=== PATIENT | male | born 1945 | race Caucasian/White ===

== ENCOUNTER 2022-10-15 08:05 | Outpatient (CLI) | payer MEDICARE, BC, SELFPAY ==
[2022-10-15 09:35] LABS: Chloride* 110 mmol/L (96-114); Potassium* 4.1 mmol/L (3.6-5.1); Sodium* 140 mmol/L (135-149)
[2022-10-15 09:37] LABS: Bilirubin Total* 0.5 mg/dL (0.1-1.5); Carbon Dioxide* 24 mmol/L (20-32); Cholesterol* 149 mg/dL (90-199); Creatinine* 1.8 mg/dL (0.5-1.5); Estimated Glomerular Filt Rate 39 ml/min; Total Protein* 6.8 g/dL (6.0-8.3)
[2022-10-15 09:38] LABS: Alanine Aminotransferase* 18 U/L (4-50); Alkaline Phosphatase* 52 U/L (40-150); Aspartate Amino Transferase* 28 U/L (12-35); Blood Urea Nitrogen* 24 mg/dL (7-30); Calcium* 8.9 mg/dL (8.4-10.6); Glucose* 122 mg/dL (60-115); HDL Cholesterol* 45 mg/dL (>=40); LDL Cholesterol Calculated 76 mg/dL (<100); Triglycerides* 142 mg/dL (40-149)
== END 2022-10-15 08:06 | disposition home or self-care (01) ==
LOC: NFLDREF 08:05
PROVIDERS: PCP Family Medicine; Visit Provider Family Medicine
DX: Z00.00 Encounter for general adult medical examination without abnormal findings (principal); E78.5 Hyperlipidemia, unspecified; Z12.5 Encounter for screening for malignant neoplasm of prostate; I12.9 Hypertensive chronic kidney disease with stage 1 through stage 4 chronic kidney disease, or unspecified chronic kidney disease; N18.30 Chronic kidney disease, stage 3 unspecified; K21.9 Gastro-esophageal reflux disease without esophagitis; G47.33 Obstructive sleep apnea (adult) (pediatric); K58.9 Irritable bowel syndrome, unspecified; R01.1 Cardiac murmur, unspecified
CPT/HCPCS: 80053; 80061; 84153

== ENCOUNTER 2023-10-21 07:52 | Outpatient (CLI) | payer MEDICARE, BC, SELFPAY | END 2023-10-21 07:53 | disposition home or self-care (01) | LOC: NFLDREF 10-22 07:13 | PROVIDERS: PCP Family Medicine; Referring Provider Family Medicine; Visit Provider Family Medicine | DX: E78.5 Hyperlipidemia, unspecified (principal); Z12.5 Encounter for screening for malignant neoplasm of prostate; R73.03 Prediabetes | CPT/HCPCS: 80053; 80061; G0103 ==

== ENCOUNTER 2024-08-08 15:08 | Outpatient (CLI) | payer MEDICARE, BC, SELFPAY ==
--- OUTSIDE RECORDS SUMMARY | 2024-08-08 15:11 | XMS_ITS | Clinical Summary ---
Author Organization [facility] Address [address] [place] [address] Care Team Providers Care Material Assistant Name Role Phone Elsewhere, Pcp Primary Care Provider Unavailabl e Source Comments Patient records contain information from all sites at [facility]. For routine questions regarding patient records, call [phone] during business hours, M-F 8:00 AM - 5:00 PM Central Time. Record requests for emergency care only can be directed to [phone] at any time.[facility] Allergies No known active allergies Medications omeprazole (PriLOSEC) [address] capsule Take 1 capsule by mouth daily. 6 Active lisinopriL 20 mg tablet Take 1 tablet by mouth daily. 6 Active Cholestyramine Light 4 gram powder TAKE 4G BY MOUTH TWICE DAILY 4 Active chlorthalidone (Hygroton) 25 mg tablet Take 25 mg by mouth daily. Active aspirin 81 mg chewable tablet Chew 1 tablet (81 mg total) daily. 4 Active amoxicillin (AmoxiL) 500 mg capsule Take 4 capsules (2,000 mg total) by mouth as directed. Take 4 caps (2000 mg) 1 hour prior to dental procedure. 12 capsule 2 4 Active omeprazole (PriLOSEC) [address] capsule Take by mouth every morning. 2 024 Discontinued pravastatin (PravachoL) 20 mg tablet 4 024 Discontinued chlorthalidone (Hygroton) 25 mg tablet Take by mouth daily. 2 024 Discontinued cholestyramine (Questran) 4 gram powder Take 1 packet by mouth. 6 024 Discontinued cholestyramine (Questran) 4 gram powder Take by mouth 2 (two) times a day. 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 DEVICE REGISTRATION 08/03/2024 12:23 PM DERRICK BARGE OPERATOR Anesthesia Event Division of Cardiovascular Diseases in [address] [phone] Laura Castaneda APRN, INDUSTRIAL INSULATOR 08/03/2024 11:30 AM DERRICK BARGE OPERATOR - 08/03/2024 2:00 PM DERRICK BARGE OPERATOR Surgery Division of Cardiovascular Diseases in [address] [phone] Chano Powell M.D., M.S. PPM Implant - Dual Chamber 08/03/2024 8:00 AM DERRICK BARGE OPERATOR - 08/03/2024 11:46 AM DERRICK BARGE OPERATOR Surgery Division of Cardiovascular Diseases in [address] [phone] Nelson Jones M.D., Ph.D. CV TRANSCATHETER AORTIC VALVE REPLACEMENT 08/03/2024 5:48 AM DERRICK BARGE OPERATOR - 08/04/2024 12:16 PM DERRICK BARGE OPERATOR Hospital Encounter [facility], [facility], Sixth Floor [address] [place] [phone] Nelson Jones M.D., Ph.D. Prosthesis Aortic Valve (Primary Dx); Stenosis Aortic Valve Acquired Discharge Disposition: Home or Self Care 08/03/2024 Clinical Communication Department of Cardiovascular Medicine in [place], [place] [address] [place] [phone] Enrico Knight, LILIBETH, C.N.P., M.S.N. 08/01/2024 1:00 PM DERRICK BARGE OPERATOR Virtual Visit Department of Cardiovascular Medicine in [place], [place] [address] [place] [phone] Emely Dominguez, R.N. Hypertensive Chronic Kidney Disease With Stage 1 Through Stage 4 Chronic Kidney Disease, Or Unspecified Chronic Kidney Disease (Primary Dx); Stenosis Aortic Valve Acquired; Obstructive Sleep Apnea Adult 07/15/2024 4:30 PM DERRICK BARGE OPERATOR Comprehensive Visit Department of Cardiovascular Surgery in [place], [place] [address] [place] [phone] Rafael Shah M.D. Acquired Aortic Valve Disorder (Primary Dx) 07/15/2024 3:30 PM DERRICK BARGE OPERATOR Comprehensive Visit Department of Cardiovascular Medicine in [place], [place] [address] [place] [phone] Nelson Jones M.D., Ph.D. Stenosis Aortic Valve Acquired 07/15/2024 11:00 AM DERRICK BARGE OPERATOR Education Department of Patient Education in [place], [place] [address] [place] [phone] Danyell Morris M.B.B.SDimple, Ph.D. Stenosis Aortic Valve Acquired 07/14/2024 Clinical Communication Department of Cardiovascular Medicine in [place], [place] [address] [place] [phone] Danyell Morris M.B.B.S., Ph.D. Forms (Dental Clearance) 07/13/2024 1:00 PM DERRICK BARGE OPERATOR Comprehensive Visit Department of Cardiovascular Medicine in [place], [place] [address] [place] [phone] Danyell Morris M.B.B.S., Ph.D. Stenosis Aortic Valve Acquired (Primary Dx); Obstructive Sleep Apnea Adult; Chronic Kidney Disease; Hypertension Essential Primary; Obesity Body Mass Index 30-39.9 Adult; Gastroesophageal Reflux Disease Without Esophagitis 07/13/2024 11:07 AM DERRICK BARGE OPERATOR - 07/13/2024 11:59 PM DERRICK BARGE OPERATOR Hospital Encounter Department of Radiology, [facility] in [place], [place] [address] [place] [address] Danyell Morris M.B.B.S., Ph.D. Stenosis Aortic Valve Acquired Discharge Disposition: Home or Self Care 07/13/2024 10:41 AM DERRICK BARGE OPERATOR - 07/13/2024 11:06 AM DERRICK BARGE OPERATOR Hospital Encounter Department of Laboratory Medicine and Pathology, [facility] in [place], [place] [address] [place] [address] Danyell Morris M.B.B.S., Ph.D. Stenosis Aortic Valve Acquired Discharge Disposition: Home or Self Care 07/13/2024 9:41 AM DERRICK BARGE OPERATOR - 07/13/2024 10:40 AM DERRICK BARGE OPERATOR [facility] [place] [place] [address] [place] [address] Danyell Morris M.B.BZion, Ph.D. Stenosis Aortic Valve Acquired Discharge Disposition: Home or Self Care 05/30/2024 Clinical Communication Department of Cardiovascular Medicine in [place], [place] [address] [place] [address] Danyell Morris M.B.BDimpleSDimple, Ph.D. Pre-visit Testing Orders 05/13/2024 Clinical Communication Department of Cardiovascular Medicine in [place], [place] [address] [place] [address] Danyell Morris M.B.BZion, Ph.D. Surgical Questions from Last 3 Months Social History Tobacco Use Types Packs/Day Years Used Date Smoking Tobacco: Never Smokeless Tobacco: Never Tobacco Cessation:Counseling Given: Not Answered [facility] Utilities Answer Date Recorded In the past 12 months has th e Peel, gas, oil, or water company threatened to shut off services in your home? No 08/03/2024 Humiliation, Afraid, Rape, and Kick questionnair e Answer Date Recorded Within the last year, have y ou been afraid of your partner or ex-partner? No 08/03/2024 Within the last year, have y ou been humiliated or emotionally abused in other ways by your partner or ex-partner? No Within the last year, have y ou been kicked, hit, slapped, or otherwise physically hurt by your partner or ex-partner? No 08/03/2024 Within the last year, have y ou been raped or forced to have any kind of sexual activity by your partner or ex-partner? No 08/03/2024 Exercise Vital Sign Answer Date Recorde d On average, how many days pe r week do you engage in moderate to strenuous exercise (like a brisk walk)? Patient declined On average, how many minutes do you engage in exercise at this level? Patient declined 07/11/2024 Hunger Vital Sign Answer Date Recorded Within the past 12 months, y ou worried that your food would run out before you got the money to buy more. Never true 08/03/20 24 Within the past 12 months, t he food you bought just didn't last and you didn't have money to get more. Never true 08/03/2024 PRAPARE - Transportation Answer Date Re corded In the past 12 months, has l ack of transportation kept you from medical appointments or from getting medications? No 11/2023 In the past 12 months, has l ack of transportation kept you from meetings, work, or from getting things needed for daily living? No 08/03/2024 Nutrition Answer Date Recorded On average, how many serving s of fruits and vegetables do you eat per day (serving size is equal to 1 cup or approximately the size of a tennis ball)? 3-5 07/11/2024 Dental Answer Date Recorded Dental: Regular Dentist Yes 07/11/20 Employment Answer Date Recorded Employment status Retired 07/11/2024 Housing Stability Answer Date Recorded What is your living situation today? I have a [facility] place to live 08/03/2024 Sex and Gender Information Value Date Recorded Sex Assigned at Male 07/11/2024 10:53 AM DERRICK BARGE OPERATOR Legal Sex Male 9:21 AM DERRICK BARGE OPERATOR Gender Identity Male 07/11/2024 10:53 AM DERRICK BARGE OPERATOR Sexual Orientation Straight 07/11/2024 10 :53 AM DERRICK BARGE OPERATOR Last Filed Vital Signs Vital Sign Reading Time Taken Comments Blood Pressure 110/65 08/04/2024 11:15 AM DERRICK BARGE OPERATOR Pulse 72 08/04/2024 11:15 AM DERRICK BARGE OPERATOR Temperature 37.3 C (99.1 F) 08/04/2024 11:18 AM DERRICK BARGE OPERATOR Respiratory Rate 18 08/04/2024 11:15 AM DERRICK BARGE OPERATOR Oxygen Saturation 95% 08/04/2024 11:15 AM DERRICK BARGE OPERATOR Inhaled Oxygen Concentration - - Weight 93.9 kg (207 lb 0.2 oz) 08/04/2024 3:04 A M DERRICK BARGE OPERATOR Height 170.5 cm (5' 7.13) 08/03/2024 6:10 AM CS T Body Mass Index 32.3 08/03/2024 6:10 AM DERRICK BARGE OPERATOR Plan of Treatment Upcoming Encounters Date Type Department Care Team (Latest Contact Info) Description 09/20/2024 9:00 AM DERRICK BARGE OPERATOR Clinical Communication Virtual Review in [place], [place] [address] [place] [address] 09/21/2024 11:20 AM DERRICK BARGE OPERATOR Appointment Department of Laboratory Medicine and Pathology, [facility] in [place], [place] [address] [place] [phone] Enrico Knight APRN, C.N.P., M.S.N. [address] [place] [phone] 09/21/2024 11:40 AM DERRICK BARGE OPERATOR Ancillary Procedure Department of Cardiovascular Medicine in [place], [place] [address] [place] [phone] Enrico Knight APRN, C.N.P., M.S.N. [address] [place] [phone] 09/21/2024 12:15 PM DERRICK BARGE OPERATOR Appointment Department of Cardiovascular Diseases in [place], [place] [address] [place] [phone] Enrico Knight APRN, C.NArnaldo., M.S.N. [address] [place] [phone] Discharge Disposition: Home or Self Care 09/22/2024 9:30 AM DERRICK BARGE OPERATOR Office Visit Department of Cardiovascular Medicine in [place], [place] [address] [place] [phone] Edna Sandra APRN, C.NArnaldo., M.S.N. [address] [place] [phone] Scheduled Procedures Name Priority Associated Diagnoses Date/Ti me ENDOSCOPY SLEEP STATE Obstructive Sleep Apnea Adult Health Maintenance Due Date Last Done Comments Hepatitis C Screening 1945 Zoster Vaccines (2 of 3) 10/06/2013 08/11/2013 RSV vaccine - (32-36 weeks) or 60+ years (1 - 1-dose 75+ series) 2021 Depression Screening (Annual PHQ-2) 08/31/2023 COVID-19 Vaccine ( - season) 2024 Influenza Vaccine (#1) 2024 08/22/2014 Office Visit for Blood Pressure Check / Re-check 07/15/2025 07/15/2024 Creatinine Level (Kidney Function Test) 08/04/2025 08/04/2024, 07/13/2024, 07/13/2024 Potassium Level 08/04/2025 08/04/2024, 07/13/2024 Sodium Level 08/04/2025 08/04/2024, 07/13/2024 DTaP,Tdap,and Td Vaccines (2 - Td or Tdap) 08/29/2025 08/29/2015, 08/06/2005 Colonoscopy Discontinued 04/25/2008 Colorectal Cancer Screening Discontinued Pneumococcal vaccine (65+ years) Completed 10/08/2020, 04/16/2011 Abdominal Aortic Aneurysm (AAA) Screen Discontinued 07/13/2024 Fall Risk Screen (Annual) Completed 08/03/2024 CT Colonography Discontinued Cologuard Discontinued FIT Discontinued IPV Vaccines Aged Out No longer eligi ble based on patient's age to complete this topic Medical Devices Implanted Type Area Electrical Transmission Engineer Device Identifier Shelf Expiration Date Model / Serial / Lot Lead Ppm Ingevity+ Biplr 59 - [id number] - [id number] Implanted:Qty : 1 on 08/03/2024 by Chano Powell M.D., M.S. at [facility] Cardiac Lead [employer] 12/20/2025 [id number] / [id number] / Lead Ppm Ingevity+ Biplr 52 - [id number] - [id number] Implanted:Qty : 1 on 08/03/2024 by Chano Powell M.D., M.S. at [facility] Cardiac Lead [employer] 06/01/2026 [id number] / [id number] / Vlv Zohra S3 Ultra 26 - [id number] - [id number] Implanted:Qty : 1 on 08/03/2024 by Nelson Jones M.D., Ph.D. at [facility] Cardiac Valve Prosthesis N/A: Heart [employer] 04/27/2027 [id number] / [id number] / Description:AO Valve Envelope Md Conrad - [id number] Implanted:Qty : 1 on 08/03/2024 by Chano Powell M.D., M.S. at [facility] Mesh or Patch Med[employer]onic 05/22/2025 [id number] / / [id number] Ppm Accolade Dr Thang Banks - [id number] - [id number] Implanted:Qty : 1 on 08/03/2024 by Chano Powell M.D., M.S. at [facility] Pacemaker [employer] 06/20/2026 [id number] / [id number] / Procedures Procedure Name Priority Date/Time Associated Diagnosis Comments CBC WITHOUT DIFFERENTIAL, B Routine 08/04/2024 9:22 AM DERRICK BARGE OPERATOR BASIC METABOLIC PANEL, S/P Routine 08/04/2024 9:22 AM DERRICK BARGE OPERATOR DX CHEST AP OR PA AND LATERAL 2 VIEWS RAD - Routine (most inpatients and all outpatients) 08/04/2024 8:51 AM DERRICK BARGE OPERATOR CAR CARDIAC DEVICE INTERROGATION Routine 08/04/2024 8:26 AM DERRICK BARGE OPERATOR Procedure Note - Program AnalystMorgan M.D. - 08/04/2024 8:26 AM CSTThis note is in progress. IMPRESSION: Encounter Impression: Title: Normal In-Office: No Events * Normal Device Function: One day post implant * Alerts or events: None * Battery: SAGAR, * Sensing, impedance and thresholds reviewed and tested * Presenting Rhythm: A sensed V sensed at 61 bpm * Underlying Rhythm: Sinus Rhythm at 61 bpm * Heart Rate Histograms reviewed * Pacing and Detection Parameters were evaluated Additional Notes: Left Pectoral Incision is covered in Mepilex which isC/D/I with no hematoma palpable. Title: Device Reprogrammed Device reprogrammed, changes are listed below: *ATR Fallback mode changed from VDI to DDIR Plan: This patient underwent device interrogation. I agree that the deviceinterrogation was medically indicated to provide appropriate care andcontinue routine device interrogations as indicated. Encounter Summary: This report includes 1 transmission that was receivedon 2024-08-04. Battery, lead impedance, sensing amplitude and pacingthreshold data was reviewed. ECG Routine 08/04/2024 6:58 AM DERRICK BARGE OPERATOR ECG Routine 08/04/2024 5:13 AM DERRICK BARGE OPERATOR ACT, POCT, B Routine 08/03/2024 6:04 PM DERRICK BARGE OPERATOR HEART RHYTHM PROCEDURE Routine 08/03/2024 3:42 PM DERRICK BARGE OPERATOR HEART RHYTHM PROCEDURE Routine 08/03/2024 3:42 PM DERRICK BARGE OPERATOR ADULT OXYGEN THERAPY Routine 08/03/2024 1:22 PM DERRICK BARGE OPERATOR ADULT OXYGEN THERAPY Routine 08/03/2024 1:22 PM DERRICK BARGE OPERATOR ADULT OXYGEN THERAPY Routine 08/03/2024 1:22 PM DERRICK BARGE OPERATOR CAR CARDIAC DEVICE INTERROGATION Routine 08/03/2024 11:52 AM DERRICK BARGE OPERATOR ECG Semiurgent (Fast, mo st ED patients, some inpatients) 08/03/2024 10:54 AM DERRICK BARGE OPERATOR CARDIAC CATHETERIZATION Routine 08/03/2024 9:51 AM DERRICK BARGE OPERATOR Stenosis Aortic Valve Acquired CARDIAC CATHETERIZATION Routine 08/03/2024 9:51 AM DERRICK BARGE OPERATOR Stenosis Aortic Valve Acquired CARDIAC CATHETERIZATION Routine 08/03/2024 9:51 AM DERRICK BARGE OPERATOR Stenosis Aortic Valve Acquired CARDIAC CATHETERIZATION Routine 08/03/2024 9:51 AM DERRICK BARGE OPERATOR Stenosis Aortic Valve Acquired (TTE) 2D LIMITED WITH COLOR AND LIMITED DOPPLER Routine 08/03/2024 9:50 AM DERRICK BARGE OPERATOR ACT, POCT, B Routine 08/03/2024 9:20 AM DERRICK BARGE OPERATOR TRANSCATHETER AORTIC VALVE REPLACEMENT TRANS FEMORAL 08/03/2024 7:58 AM DERRICK BARGE OPERATOR Stenosis Aortic Valve Acquired CT CHEST ANGIOGRAM WITH IV CONTRAST RAD - Routine (most inpatients and all outpatients) 07/13/2024 1:36 PM DERRICK BARGE OPERATOR Stenosis Aortic Valve Acquired CT CARDIAC ANGIO STRUCTURAL HEART W ANNABELLE ARTERIES W IV CONTRAST RAD - Routine (most inpatients and all outpatients) 07/13/2024 1:36 PM DERRICK BARGE OPERATOR Stenosis Aortic Valve Acquired CT ABDOMEN PELVIS ANGIOGRAM WITH IV CONTRAST RAD - Routine (most inpatients and all outpatients) 07/13/2024 1:36 PM DERRICK BARGE OPERATOR Stenosis Aortic Valve Acquired ECG Routine 07/13/2024 1:11 PM DERRICK BARGE OPERATOR Stenosis Aortic Valve Acquired CREATININE, POCT, B Routine 07/13/2024 12:01 PM DERRICK BARGE OPERATOR CREATININE, POCT, B Routine 07/13/2024 12:01 PM DERRICK BARGE OPERATOR NT-PRO B-TYPE NATRIURETIC PEPTIDE (BNP), S Routine 07/13/2024 10:51 AM DERRICK BARGE OPERATOR Stenosis Aortic Valve Acquired CBC WITH DIFFERENTIAL, B Routine 07/13/2024 10:51 AM DERRICK BARGE OPERATOR Stenosis Aortic Valve Acquired COMPREHENSIVE METABOLIC PANEL, S/P Routine 07/13/2024 10:51 AM DERRICK BARGE OPERATOR Stenosis Aortic Valve Acquired TYPE AND SCREEN Routine 07/13/2024 10:51 AM DERRICK BARGE OPERATOR Stenosis Aortic Valve Acquired PROTHROMBIN TIME (PT), P Routine 07/13/2024 10:51 AM DERRICK BARGE OPERATOR Stenosis Aortic Valve Acquired LIPID PANEL, S Routine 07/13/2024 10:46 AM DERRICK BARGE OPERATOR HEMOGLOBIN A1C, B Routine 07/13/2024 10:46 AM DERRICK BARGE OPERATOR Stenosis Aortic Valve Acquired Obstructive Sleep Apnea Adult Chronic Kidney Disease Hypertension Essential Primary Obesity Body Mass Index 30-39.9 Adult THYROID FUNCTION CASCADE, S Routine 07/13/2024 10:46 AM DERRICK BARGE OPERATOR Stenosis Aortic Valve Acquired Obstructive Sleep Apnea Adult Chronic Kidney Disease Hypertension Essential Primary Obesity Body Mass Index 30-39.9 Adult DX CHEST AP OR PA AND LATERAL 2 VIEWS RAD - Routine (most inpatients and all outpatients) 07/13/2024 9:48 AM DERRICK BARGE OPERATOR Stenosis Aortic Valve Acquired from Last 3 Months Results * (ABNORMAL) CBC without Differential (08/04/2024 9:22 AM DERRICK BARGE OPERATOR) Hemoglobin 11.9(L) 13.2 - 16.6 g/dL 08/04/2024 10:14 AM DERRICK BARGE OPERATOR DTL Hematocrit 35.2(L) 38.3 - 48.6 % 08/04/2024 10:14 AM DERRICK BARGE OPERATOR DTL Erythrocytes 3.66(L) 4.35 - 5.65 x10(12)/L 08/04/2024 10:14 AM DERRICK BARGE OPERATOR DTL MCV 96.2 78.2 - 97.9 fL 08/04/2024 10:14 AM DERRICK BARGE OPERATOR DTL RBC Distrib Width 12.0 11.8 - 14.5 % 08/04/2024 10:14 AM DERRICK BARGE OPERATOR DTL Platelet Count 139 135 - 317 x10(9)/L 08/04/2024 10:14 AM DERRICK BARGE OPERATOR DTL Leukocytes 8.9 3.4 - 9.6 x10(9)/L 08/04/2024 10:14 AM DERRICK BARGE OPERATOR DTL Blood (Blood, Venous) 08/04/2024 9:22 AM DERRICK BARGE OPERATOR 08/04/2024 9:40 AM DERRICK BARGE OPERATOR Enrico Knight APRN C.N.P., M.S.N. LAB BLOOD A DD-ON Final Result [facility] [address] [place] [address] * (ABNORMAL) Basic Metabolic Panel (08/04/2024 9:22 AM DERRICK BARGE OPERATOR) Pathologist [facility] Potassium, S 4.3 3.6 - 5.2 mmol/L 08/04/2024 10:57 AM DERRICK BARGE OPERATOR DTL Sodium, S 134(L) 135 - 145 mmol/L 08/04/2024 10:57 AM DERRICK BARGE OPERATOR DTL Chloride, S 104 98 - 107 mmol/L 08/04/2024 10:57 AM DERRICK BARGE OPERATOR DTL Bicarbonate, S 20(L) 22 - 29 mmol/L 08/04/2024 10:57 AM DERRICK BARGE OPERATOR DTL Anion Gap 10 7 - 15 08/04/2024 10:57 AM DERRICK BARGE OPERATOR DTL BUN (Blood Urea Nitrogen), S 27(H) 8 - 24 mg/dL 08/04/2024 10:57 AM DERRICK BARGE OPERATOR DTL Creatinine 1.92(H) 0.74 - 1.35 mg/dL 08/04/2024 10:57 AM DERRICK BARGE OPERATOR DTL Estimated GFR (eGFR) 35(L) >=60 mL/min/BSA 08/04/2024 10:57 AM DERRICK BARGE OPERATOR DTL Comment: Estimated GFR calculated using the 2020 CKD_EPI creatinine equation. Calcium, Total, S 8.8 8.8 - 10.2 mg/dL 08/04/2024 10:57 AM DERRICK BARGE OPERATOR DTL Glucose, S 104 70 - 140 mg/dL 08/04/2024 10:57 AM DERRICK BARGE OPERATOR DTL Blood (Blood, Venous) 08/04/2024 9:22 AM DERRICK BARGE OPERATOR 08/04/2024 9:54 AM DERRICK BARGE OPERATOR Enrico Knight APRN, C.N.P., M.S.N. LAB BLOOD A DD-ON Final Result [facility] [address] [place] [address], [facility] DTL [facility] [address] [place] [address] * DX Chest AP or PA and Lateral 2 Views (08/04/2024 8:51 AM DERRICK BARGE OPERATOR) Only the most recent of2 resultswithin the time period is included. Anatomical Region Laterality Modality Chest, Thoracic RST LOS, Tho racic ARZ LOS, Thoracic FLA LOS N/A Digital Radiography Impressions 08/04/2024 8:56 AM DERRICK BARGE OPERATOR Since 07/13/2024, new left subclavian pacemaker with leads projecting over the RA and RV. Interval TAVR. Cardiac silhouette size upper limits of normal. Aortic calcifications. Surgical clips RUQ. Chest otherwise negative. Narrative 08/04/2024 8:56 AM DERRICK BARGE OPERATOR EXAM: DX CHEST AP OR PA AND LATERAL 2 VIEWS Procedure Note Harry Eason M.D. - 08/04/2024 EXAM: DX CHEST AP OR PA AND LATERAL 2 VIEWS IMPRESSION: Since 07/13/2024, new left subclavian pacemaker with leads projecting overthe RA and RV. Interval TAVR. Cardiac silhouette size upper limits ofnormal. Aortic calcifications. Surgical clips RUQ. Chest otherwisenegative. Enrico Knight APRN, C.N.P., M.S.N. IMG DIAGNOS TIC IMAGING PROCEDURES Final Result * ECG 12 Lead (08/04/2024 6:58 AM DERRICK BARGE OPERATOR) Only the most recent of4 resultswithin the time period is included. Ventricular Rate ECG/Min 60 BPM MUSE DC Interval 230 ms MUSE QRSD Interval 144 ms MUSE QT Interval 456 ms MUSE QTC Interval 456 ms MUSE P [place] 36 degrees MUSE R [place] -82 degrees MUSE T Wave [place] 15 degrees MUSE 08/04/2024 6:58 AM DERRICK BARGE OPERATOR 08/04/2024 7:07 AM DERRICK BARGE OPERATOR Impressions MUSE - 08/04/2024 7:07 AM DERRICK BARGE OPERATOR Atrial-paced rhythm Right bundle branch block with secondary ST-T abnormalities Left anterior fascicular block Bifascicular block Nonspecific T wave abnormality When compared with ECG of 04-Aug-2024 05:13, Sinus rhythm is no longer present Reviewed by SKYE Agee Narrative Procedure Note Morales Huerta Jr., M.D. - 08/04/2024 IMPRESSION: Atrial-paced rhythm Right bundle branch block with secondary ST-T abnormalities Left anterior fascicular block Bifascicular block Nonspecific T wave abnormality When compared with ECG of 04-Aug-2024 05:13, Sinus rhythm is no longer present Reviewed by SKYE Agee Enrico Knight APRN, C.N.P., M.S.N. ECG ORDERAB LES Final Result MUSE NA * ACT (Activated Clotting Time), POCT (08/03/2024 6:04 PM DERRICK BARGE OPERATOR) Only the most recent of2 resultswithin the time period is included. Activated Clotting Time, POCT 125 84 - 139 sec 08/03/2024 6:45 PM DERRICK BARGE OPERATOR PCSM Blood (Blood, Venous) 08/03/2024 6:04 PM DERRICK BARGE OPERATOR 08/03/2024 6:07 PM DERRICK BARGE OPERATOR Cornelia Mario APRNNDimpleP., M.S.N. LAB POCT OR DERABLES - DEVICE Final Result POC RST [facility] [address] [place] [address], [facility] PCSM [facility] POC [address] [place] [address] * PPM IMPLANT - DUAL CHAMBER, LEFT BUNDLE PACING (08/03/2024 3:42 PM DERRICK BARGE OPERATOR) Anatomical Region Laterality Modality X-Ray Angiograph y 08/03/2024 1:18 PM DERRICK BARGE OPERATOR Narrative 08/03/2024 4:22 PM DERRICK BARGE OPERATOR For the complete report, see the Order-Level Documents. PROCEDURE TYPES 1. PPM IMPLANT - DUAL CHAMBER 2. 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 Moderate sedation was administered by our anesthesia colleagues. Sterile prepping and draping were performed. Periprocedural antibiotics were given. The skin was incised with a blade. Cautery was performed towards the pectoral fascia and a pocket was created. Vascular access was obtained using the micropuncture needle and ultrasound guidance. A second vascular access was similarly obtained. The Centerpoint 2 sheath was advanced into the RVOT over a Glidewire. We attempted positioning the sheath tip in the left bundle region but the shape was not appropriate. Hence, it was exchanged for the Centerpoint 3 sheath which offered better stability. The Ingevity was then advanced through the sheath and positioned approximately 1cm distal to the tricuspid annulus along the inferior septum. The helix was extended with the helix locking tool. Several turns were applied to the lead body. Starting unipolar tip impedance was around 700. With additional turns, a terminal R wave emerged on lead V1, with an LVAT of around 80ms. The unipolar tip impedance decreased to around 600 at this juncture. Contrast injection showed that the lead was within the septum. There was good myocardial capture with ring unipolar pacing. We therefore elected to keep this location. The sheath was slit with the [employer] adjustable slitter. The peel-away sheath was removed and the lead was secured at its entry to the vein with suture ties. Next, a second pacing lead was directed towards the RAA using a J-shaped stylet. Lead parameters and pacing thresholds were adequate at this location; no diaphragmatic or intercostal stimulation was appreciated at high output pacing. The lead was secured at its entry to the vein with suture ties. The pocket was irrigated with saline and reexamined for bleeding; additional cautery was performed as needed to maintain hemostasis. The generator was brought onto the field and connected to the implanted leads. The generator was then placed in the pocket with the leads wrapped behind it. An affixing suture was placed along with an antibiotic pouch. Final device/lead testing was performed and parameters were stable. The deep layer was closed with interrupted 2-0 Vicryl suture. The subcutaneous layer was closed with a running 2-0 Vicryl suture. The skin was closed with a running 4-0 Stratafix suture. RADIATION DOSE DATA Procedure cumulative skin dose (mGy): 109.73 Procedure cumulative dose area product (Gy-cm2): 10.63 Fluoro Time (Min): 14.89 CONTRAST DOSE DATA iohexoL 300 mg iodine/mL solution (Omnipaque): 2mL For the complete report, see the Order-Level Documents. Procedure Note Chano Powell M.D., M.S. - 08/04/2024 For the complete report, see the Order-Level Documents. PROCEDURE TYPES 1. PPM IMPLANT - DUAL CHAMBER 2. 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 Moderatesedation was administered by our anesthesia colleagues. Sterile preppingand draping were performed. Periprocedural antibiotics were given. Theskin was incised with a blade. Cautery was performed towards the pectoralfascia and a pocket was created. Vascular access was obtained using themicropuncture needle and ultrasound guidance. A second vascular accesswas similarly obtained. The Centerpoint 2 sheath was advanced into the RVOT over a Glidewire. Weattempted positioning the sheath tip in the left bundle region but theshape was not appropriate. Hence, it was exchanged for the Centerpoint 3sheath which offered better stability. The Ingevity was then advancedthrough the sheath and positioned approximately 1cm distal to thetricuspid annulus along the inferior septum. The helix was extended withthe helix locking tool. Several turns were applied to the lead body.Starting unipolar tip impedance was around 700. With additional turns, aterminal R wave emerged on lead V1, with an LVAT of around 80ms. Theunipolar tip impedance decreased to around 600 at this juncture. Contrastinjection showed that the lead was within the septum. There was goodmyocardial capture with ring unipolar pacing. We therefore elected tokeep this location. The sheath was slit with the [employer] adjustableslitter. The peel-away sheath was removed and the lead was secured at itsentry to the vein with suture ties. Next, a second pacing lead wasdirected towards the RAA using a J-shaped stylet. Lead parameters andpacing thresholds were adequate at this location; no diaphragmatic orintercostal stimulation was appreciated at high output pacing. The leadwas secured at its entry to the vein with suture ties. The pocket was irrigated with saline and reexamined for bleeding;additional cautery was performed as needed to maintain hemostasis. Thegenerator was brought onto the field and connected to the implanted leads.The generator was then placed in the pocket with the leads wrapped behindit. An affixing suture was placed along with an antibiotic pouch. Finaldevice/lead testing was performed and parameters were stable. The deeplayer was closed with interrupted 2-0 Vicryl suture. The subcutaneouslayer was closed with a running 2-0 Vicryl suture. The skin was closedwith a running 4-0 Stratafix suture. RADIATION DOSE DATA Procedure cumulative skin dose (mGy): 109.73 Procedure cumulative dose area product (Gy-cm2): 10.63 Fluoro Time (Min): 14.89 CONTRAST DOSE DATA iohexoL 300 mg iodine/mL solution (Omnipaque): 2mL For the complete report, see the Order-Level Documents. us Chano Powell M.D., M.S. CV ELECTROPHYSIOLOGY P ROCS Edited Result - Final * CARDIOVASCULAR IMPLANTABLE ELECTRONIC DEVICE - NO CHARGE (08/03/2024 11:52 AM DERRICK BARGE OPERATOR) Date Time Interrogation Session [facility] Implantable Pulse Generator Electrical Transmission Engineer [facility] Implantable Pulse Generator Type Pacemaker [facility] Implantable Pulse Generator Model L331 [facility] Implantable Pulse Generator Serial Number [id number] [facility] Implantable Pulse Generator Implant Date [id number] [facility] Lead Channel Sensing Intrinsic Amplitude 2.600 [facility] Lead Channel Setting Sensing Sensitivity 0.75 [facility] Lead Channel Impedance Value 570 [facility] Lead Channel Pacing Threshold Amplitude 0.700 [facility] Lead Channel Pacing Threshold Pulse Width 0.4 [facility] Lead Channel Measurements Date and Time 20240803 [facility] Lead Channel Setting Pacing Amplitude 3.500 [facility] Lead Channel Setting Pacing Pulse Width 0.4 [facility] Lead Channel Sensing Intrinsic Amplitude 19.500 [facility] Lead Channel Setting Sensing Sensitivity 2.50 [facility] Lead Channel Impedance Value 872 [facility] Lead Channel Pacing Threshold Amplitude 0.400 [facility] Lead Channel Pacing Threshold Pulse Width 0.4 [facility] Lead Channel Measurements Date and Time 20240803 [facility] Lead Channel Setting Pacing Amplitude 3.500 [facility] Lead Channel Setting Pacing Pulse Width 0.4 [employer] [facility] Jarad Setting Mode (NBG Code) AAIR-VVI [facility] Jarad Setting Lower Rate Limit 60 [facility] Jarad Setting AT Mode Switch Rate 170 [facility] Jarad Setting Maximum Tracking Rate 120 [facility] Jarad Setting Maximum Sensor Rate 120 [facility] Ajrad Setting PAV Delay 210 [facility] Jarad Setting TRACIE Delay 200 [facility] Zone Setting Type Category AT/AF [facility] Murj Rate 1 170 [facility] Zone Setting Status Monitor [facility] Murj Zone ID 1 [facility] Zone Setting Type Category VT [facility] Murj Rate 1 160 [facility] Zone Setting Status Monitor [facility] Murj Zone ID 2 [facility] Implantable Lead Electrical Transmission Engineer [employer] [facility] Implantable Lead Model 7842-59 [facility] Implantable Lead Location Right Ventricle [facility] Implantable Lead Connection Status Connected [facility] Implantable Lead Serial Number [id number] [facility] Implantable Lead Implant Date 20240731 [facility] Implantable Lead Special Function Lead length: 59.00 cm [facility] Implantable Lead Electrical Transmission Engineer [employer] [facility] Implantable Lead Model 7841-52 [facility] Implantable Lead Location Right Atrium [facility]plantable Lead Connection Status Connected [facility] Implantable Lead Serial Number [id number] [facility] Implantable Lead Implant Date 20240731 [facility] Implantable Lead Special Function Lead length: 52.00 cm [facility] Anatomical Region Laterality Modality Other 08/03/2024 3:56 PM DERRICK BARGE OPERATOR Impressions 08/03/2024 3:56 PM DERRICK BARGE OPERATOR Encounter Impression: Title: New Device Implanted * New Device Implant Date: 08/03/2024 * Device implanted by Dr. Powell at [facility] * Programmed parameters were reviewed * Underlying Rhythm: A/V block- 1st; frequent PAC's 60's * Temporary Pacemaker Used: Yes- epicardial placed in TAVR * Temporary Pacemaker Site: Femoral * Dressing: Mepilex * Same Day Dismissal: No * Summary: All device function appears normal * Interrogation performed by: Char Rivas Plan: This patient underwent device interrogation. I agree that the device interrogation was medically indicated to provide appropriate care and continue routine device interrogations as indicated. Encounter Summary: This report includes 1 transmission that was received on 2024-08-03. Battery, lead impedance, sensing amplitude and pacing threshold data was reviewed. Narrative Procedure Note Akers, Abiodun T, M.D. - 08/08/2024 IMPRESSION: Encounter Impression: Title: New Device Implanted * New Device Implant Date: 08/03/2024 * Device implanted by Dr. Powell at [facility] * Programmed parameters were reviewed * Underlying Rhythm: A/V block- 1st; frequent PAC's 60's * Temporary Pacemaker Used: Yes- epicardial placed in TAVR * Temporary Pacemaker Site: Femoral * Dressing: Mepilex * Same Day Dismissal: No * Summary: All device function appears normal * Interrogation performed by: Char Rivas Plan: This patient underwent device interrogation. I agree that the deviceinterrogation was medically indicated to provide appropriate care andcontinue routine device interrogations as indicated. Encounter Summary: This report includes 1 transmission that was receivedon 2024-08-03. Battery, lead impedance, sensing amplitude and pacingthreshold data was reviewed. Katie Mike APRN, C.N.P., D.N.P. CV IMPLANT ABLE CARDIAC DEVICE Final Result * TRANSCATHETER AORTIC VALVE REPLACEMENT, AORTIC ROOT AORTOGRAM, TEMPORARY PACEMAKER INSERTION, LEFT HEART CATHETERIZATION (08/03/2024 9:51 AM DERRICK BARGE OPERATOR) Anatomical Region Laterality Modality X-Ray Angiograph y 08/03/2024 8:59 AM DERRICK BARGE OPERATOR Narrative 08/04/2024 10:06 AM DERRICK BARGE OPERATOR For the complete report, see the Order-Level Documents. PROCEDURE TYPES 1. TRANSCATHETER AORTIC VALVE REPLACEMENT 2. AORTIC ROOT AORTOGRAM 3. TEMPORARY PACEMAKER INSERTION 4. HEART CATHETERIZATION - LEFT FINAL DIAGNOSIS 1. Aortic valve stenosis 2. Successful percutaneous aortic valve replacement PRE-PROCEDURE DIAGNOSIS 1. Stenosis Aortic Valve Acquired INTERVENTIONAL NOTE Preoperative diagnosis: Severe, symptomatic aortic valve stenosis, acute on chronic decompensated heart failiure Procedure: Successful transfemoral transcatheter aortic valve replacement with a 26 mm Stewart Zohra 3 Ultra valve +2cc additional volume via the right common femoral artery After a discussion of the risks, benefits, alternatives, and need for a team based approach, the patient was brought for elective transcatheter aortic valve replacement using a 26 Zohra S3 valve (+2 cc volume). Using a combination of ultrasound and fluoroscopic guidance, access was obtained in the right radial artery, right common femoral artery, and left femoral vein, and 6 [place] sheaths were inserted. The right femoral artery access was pre-closed using two suture-based vascular closure devices and upsized to an 8 [place] sheath. Therapeutic heparin was administered. A temporary pacemaker was advanced into the right ventricle from the right femoral vein and tested with appropriate capture. A J tipped glidewire was used to navigate the radial artery, and a 5Fr pigtail was advanced from the radial artery into the aortic root. Angiography was performed to confirm cusp alignment. From the right common femoral artery, an AL1 catheter was used to introduce a Safari wire into the thoracic aorta, we then exchanged the 8 [place] sheath for the 14 [place] expandable Stewart sheath. An AL1 was advanced with a J wire to the level of the aortic valve and a straight wire was used to cross into the left ventricle. A 6 [place] pigtail catheter was used to measure an LVEDP. We then advanced the Safari wire into the LV.? The Zohra valve was introduced and configured in the descending thoracic aorta. The valve was subsequently positioned across the aortic valve and successfully deployed under rapid ventricular pacing. Echocardiography demonstrated no significant perivalvular regurgitation. Aortic root angiogram showed excellent position with no valvular or perivalvular regurgitation. Patient did not require pacing but remains at high risk given baseline bifascicular block. Temporary pacing balloon was left in place and the left femoral venous sheath was secured with a suture. The right femoral artery vascular closure devices were deployed with good hemostasis. Right radial artery angiogram was taken through the sheath, demonstrating a recurrent radial artery. The radial sheath was removed with placement of a TR band. The patient tolerated the procedure well with no intraprocedural complications. RADIATION DOSE DATA Procedure cumulative skin dose (mGy): 412.32 Procedure cumulative dose area product (Gy-cm2): 48.90 Fluoro Time (Min): 6.95 CONTRAST DOSE DATA iohexoL 350 mg iodine/mL solution (Omnipaque): 60mL For the complete report, see the Order-Level Documents. Procedure Note Nelson Jones M.D., Ph.D. - 08/04/2024 For the complete report, see the Order-Level Documents. PROCEDURE TYPES 1. TRANSCATHETER AORTIC VALVE REPLACEMENT 2. AORTIC ROOT AORTOGRAM 3. TEMPORARY PACEMAKER INSERTION 4. HEART CATHETERIZATION - LEFT FINAL DIAGNOSIS 1. Aortic valve stenosis 2. Successful percutaneous aortic valve replacement PRE-PROCEDURE DIAGNOSIS 1. Stenosis Aortic Valve Acquired INTERVENTIONAL NOTE Preoperative diagnosis: Severe, symptomatic aortic valve stenosis, acuteon chronic decompensated heart failiure Procedure: Successful transfemoral transcatheter aortic valve replacementwith a 26 mm Stewart Zohra 3 Ultra valve +2cc additional volume via theright common femoral artery After a discussion of the risks, benefits, alternatives, and need for ateam based approach, the patient was brought for elective transcatheteraortic valve replacement using a 26 Zohra S3 valve (+2 cc volume). Usinga combination of ultrasound and fluoroscopic guidance, access was obtainedin the right radial artery, right common femoral artery, and left femoralvein, and 6 [place] sheaths were inserted. The right femoral artery accesswas pre-closed using two suture-based vascular closure devices and upsizedto an 8 [place] sheath. Therapeutic heparin was administered. A temporary pacemaker was advancedinto the right ventricle from the right femoral vein and tested withappropriate capture. A J tipped glidewire was used to navigate the radialartery, and a 5Fr pigtail was advanced from the radial artery into theaortic root. Angiography was performed to confirm cusp alignment. From theright common femoral artery, an AL1 catheter was used to introduce aSafari wire into the thoracic aorta, we then exchanged the 8 [place] sheathfor the 14 [place] expandable Stewart sheath. An AL1 was advanced with a Jwire to the level of the aortic valve and a straight wire was used tocross into the left ventricle. A 6 [place] pigtail catheter was used tomeasure an LVEDP. We then advanced the Safari wire into the LV.? TheSapien valve was introduced and configured in the descending thoracicaorta. The valve was subsequently positioned across the aortic valve andsuccessfully deployed under rapid ventricular pacing. Echocardiography demonstrated no significant perivalvular regurgitation.Aortic root angiogram showed excellent position with no valvular orperivalvular regurgitation. Patient did not require pacing but remains athigh risk given baseline bifascicular block. Temporary pacing balloon wasleft in place and the left femoral venous sheath was secured with asuture. The right femoral artery vascular closure devices were deployedwith good hemostasis. [facility] a recurrent radial artery. The radial sheath wasremoved with placement of a TR band. The patient tolerated the procedurewell with no intraprocedural complications. RADIATION DOSE DATA Procedure cumulative skin dose (mGy): 412.32 Procedure cumulative dose area product (Gy-cm2): 48.90 Fluoro Time (Min): 6.95 CONTRAST DOSE DATA iohexoL 350 mg iodine/mL solution (Omnipaque): 60mL For the complete report, see the Order-Level Documents. Danyell Walsh, Ph.D. CV CARDIAC CATH PROCEDURES Final Result * (TTE) 2D LIMITED WITH COLOR AND LIMITED DOPPLER (08/03/2024 9:50 AM DERRICK BARGE OPERATOR) Ejection Fraction 55 MC CV EIMS Left ventricular stroke volume index 54 MC CV EIMS Cardiac Output 6.87 MC CV EIMS Cardiac Index 3.35 MC CV EIMS AV mean gradient 73 MC CV EIMS Aortic valve area 0.75 MC CV EIMS Aortic Valve Area Index 0.37 MC CV EIMS Aortic Valve Dimensionless Index 0.17 MC CV EIMS Aortic Valve Systolic Peak Velocity 5.6 MC CV EIMS Anatomical Region Laterality Modality Other 08/03/2024 7:33 AM DERRICK BARGE OPERATOR Impressions 08/03/2024 10:00 AM DERRICK BARGE OPERATOR Echo performed in the Cardiac Cath Laboratory. Clinical TAVR. TTE imaging performed during TAVR deployment. PRE-PROCEDURE:Estimated left ventricular ejection fraction 55%. Severe calcific aortic valve stenosis. Aortic valve systolic mean Doppler gradient 73 mmHg. Aortic valve area by Doppler 0.75 cm2. Mild aortic valve regurgitation. Left ventricular outflow tract systolic diameter: 2.4 cm. No pericardial effusion. PROCEDURE:Status post 26 mm Stewart Zohra 3 Ultra transcatheter aortic valve bioprosthesis implanted via a transfemoral approach. POST-DEPLOYMENTNormal aortic prosthesis. Aortic valve prosthesis systolic mean gradient post-procedure 13 mmHg. Effective orifice area post-procedure 2.42 cm2. No aortic valve prosthetic regurgitation. No aortic valve periprosthetic regurgitation. No pericardial effusion post-procedure. The remaining findings are unchanged from the pre-procedural images. For the complete report, see the Order-Level Documents. Narrative 08/03/2024 10:00 AM DERRICK BARGE OPERATOR For the complete report, see the Order-Level Documents. Hemodynamics Heart Rate: 55 BPM Blood Pressure: 144 / 64 mmHg ECG: Sinus rhythm Final Impressions 1. TTE imaging performed during TAVR deployment. 2. PRE-PROCEDURE: 3. Severe calcific aortic valve stenosis with mild aortic regurgitation. Aortic valve area by Doppler 0.75 cm2. 4. Estimated left ventricular ejection fraction 55%. 5. No pericardial effusion. 6. PROCEDURE: 7. Status post 26 mm Stewart Zohra 3 Ultra transcatheter aortic valve bioprosthesis implanted via a transfemoral approach. 8. POST-DEPLOYMENT 9. Normal aortic prosthesis. 10. Aortic valve prosthesis systolic mean gradient post-procedure 13 mmHg. Effective orifice area post-procedure 2.42 cm2. 11. No aortic prosthetic or periprosthetic regurgitation visualized. 12. No pericardial effusion post-procedure. Procedure Note Hayden Hurd M.D. - 08/03/2024 For the complete report, see the Order-Level Documents. Hemodynamics Heart Rate: 55 BPM Blood Pressure: 144 / 64 mmHg ECG: Sinus rhythm Final Impressions 1. TTE imaging performed during TAVR deployment. 2. PRE-PROCEDURE: 3. Severe calcific aortic valve stenosis with mild aortic regurgitation.Aortic valve area by Doppler 0.75 cm2. 4. Estimated left ventricular ejection fraction 55%. 5. No pericardial effusion. 6. PROCEDURE: 7. Status post 26 mm Stewart Zohra 3 Ultra transcatheter aortic valvebioprosthesis implanted via a transfemoral approach. 8. POST-DEPLOYMENT 9. Normal aortic prosthesis. 10. Aortic valve prosthesis systolic mean gradient post-procedure 13 mmHg.Effective orifice area post-procedure 2.42 cm2. 11. No aortic prosthetic or periprosthetic regurgitation visualized. 12. No pericardial effusion post-procedure. Findings Echo performed in the Cardiac Cath Laboratory. Clinical TAVR. TTE imagingperformed during TAVR deployment. PRE-PROCEDURE:Estimated left ventricular ejection fraction 55%. Severecalcific aortic valve stenosis. Aortic valve systolic mean Dopplergradient 73 mmHg. Aortic valve area by Doppler 0.75 cm2. Mild aortic valveregurgitation. Left ventricular outflow tract systolic diameter: 2.4 cm.No pericardial effusion. PROCEDURE:Status post 26 mm Stewart Zohra 3 Ultra transcatheter aorticvalve bioprosthesis implanted via a transfemoral approach. POST-DEPLOYMENTNormal aortic prosthesis. Aortic valve prosthesis systolicmean gradient post-procedure 13 mmHg. Effective orifice areapost-procedure 2.42 cm2. No aortic valve prosthetic regurgitation. Noaortic valve periprosthetic regurgitation. No pericardial effusionpost-procedure. The remaining findings are unchanged from thepre-procedural images. For the complete report, see the Order-Level Documents. us Nelson Jones M.D., Ph.D. CV ECHO PROCEDURES Mini l Result * CT Cardiac Angiogram Structural Heart with Coronary Arteries with IV Contrast (07/13/2024 1:36 PM DERRICK BARGE OPERATOR) Anatomical Region Laterality Modality Cardiac, Cardiovascular RST LOS, Thoracic ARZ LOS, Cardiovascular FLA LOS N/A Computed Tomography, Compute d Tomography Impressions 07/13/2024 3:16 PM DERRICK BARGE OPERATOR 1. Tricuspid aortic valve with calcific aortic stenosis. Please see TAVR procedure planning measurements in the Findings section. 2. Overall Coronary CT angiography image quality was adequate. Extensive calcified plaque causes moderate stenoses in distal left circumflex and first and second obtuse marginal branches. Proximal obstructive disease (as defined in the body of the report for pre-TAVR evaluation): Absent. CAD-RADS 3/P3. This examination was performed in conjunction with a CT of the Abdomen and Pelvis, which will be reported separately. Because nitroglycerin could not be administered, this study was not sent for coronary FFRct analysis Narrative 07/13/2024 3:16 PM DERRICK BARGE OPERATOR EXAM: CT CARDIAC ANGIO STRUCTURAL HEART W ANNABELLE ARTERIES W IV CONTRAST, CT CHEST ANGIOGRAM WITH IV CONTRAST ECG-gated CT angiogram of the chest and heart, including independent workstation 3D reformations, performed per the TAVR procedure planning protocol, with CT angiography of the abdomen and pelvis. COMPARISON: None CARDIAC FINDINGS: AORTIC VALVE: Morphology: Tricuspid aortic valve. Leaflet thickness: Severely increased cusp thickness. Leaflet mobility: Severe restriction of leaflet motion. Leaflet calcification: Present. Involves all valve cusps. Calcium score: 5439. LVOT Calcification: No calcifications in the left ventricular outflow tract. Other findings: None AORTIC VALVE/ANNULUS MEASUREMENTS Aortic Valve Annulus (cardiac phase 15% R-R interval): * Diameter = 28.2 mm x 23.8 mm * Area = 5.37 cm2 * Average diameter = 26.2 mm * Perimeter = 83.8 mm Distance from Aortic Valve Annulus to: * Left main coronary artery origin = 15.2 mm * Right coronary artery origin = 15.6 mm * Sinotubular junction = 25.1 mm * Brachiocephalic artery origin = 116 mm Left Ventricular Outflow Tract 4 mm below the Aortic Valve Annulus (cardiac phase 15% R-R interval): * Diameter = 28.4 mm x 25.1 mm * Area = 5.65 cm2 * Average diameter = 26.8 mm * Perimeter = 85.3 mm Aortic Annulus Orthogonal Plane Angles: * Optimized Aortic Valve Plane N, R, L = 8 degrees MONGOLIAN ; 5 degrees FIELD LABORER * Craniocaudal tilt at 0 degrees MONGOLIAN = 7 degrees CAU * Craniocaudal tilt at 10 degrees MONGOLIAN = 7 degrees FIELD LABORER * Craniocaudal tilt at 10 degrees POLLACK = 19 degrees CAU * R, L Cusp Overlap View = 11 degrees POLLACK ; 20 degrees CAU CORONARY ARTERIES: Coronary artery calcium score = 1025.50. Overall image quality for coronary evaluation: adequate Origins: Conventional Dominance: Right Left Main Coronary: Calcified plaque at ostium causes minimal stenosis. Left Anterior Descending: Patent proximal LAD. Calcified plaques cause up to mild stenosis in mid LAD. Bridging segment of mid LAD. Patent first diagonal. Left Circumflex: Calcified plaques cause moderate stenoses in first and second obtuse marginal branches and distal left circumflex. Right Coronary: Scattered calcified plaques cause mild stenoses in proximal, mid and distal RCA. Patent PDA and visualized proximal posterolateral branch OTHER CARDIAC FINDINGS: Enlarged left ventricle with mildly reduced systolic function (visual estimate). No regional wall motion abnormalities. No resting first pass perfusion defect. Mild asymmetric wall thickening of basal septum, measures up to 14 mm. No LV outflow tract obstruction or RITA. Normal right ventricular chamber size and systolic function. Left atrial enlargement. Normal-sized right atrium. Left atrial appendage is well opacified. No intracardiac thrombus in left heart. Thickened mitral valve leaflets. Mild mitral annular calcification. Pericardium: Normal. VASCULAR FINDINGS: Thoracic Aorta: Thoracic aorta is patent and normal caliber. Scattered calcified and noncalcified plaque throughout the thoracic aorta. Left aortic arch with conventional 3 vessel branching. Mixed density plaque causes mild stenosis of left subclavian artery. Calcified plaque causes minimal ostial stenosis of right subclavian artery. Otherwise, visualized aortic arch branch vessels are patent. No porcelain aorta. * Sinotubular Junction Diameter = 32.9 mm Central pulmonary arteries are patent. Main pulmonary artery is mildly dilated to 32 mm. Patent pulmonary veins drain into left atrium. ADDITIONAL FINDINGS: 4 mm triangular nodule along left major fissure, likely a lymph node. Minimal linear scar or atelectasis in right upper lobe. CAD-RADS CATEGORIES: (based on most severe single lesion) 0: 0%, No stenosis 1: 1-24%, Minimal stenosis 2: 25-49%, Mild stenosis 3: 50-69%, Moderate stenosis 4: 70-99%, Severe stenosis 5: 100%, Occluded Modifiers: N: Non-diagnostic segment(s) S: Stent G: Graft V: Vulnerable plaque Proximal Obstructive Coronary Disease for Pre-TAVR Defined as >=50% stenosis in: * Left Main * LAD to 2nd Diagonal * If Right Dominant: * RCA to junction free wall / inferior wall * LCx to 1st OM OR largest OM * If Left Dominant: * LCX to junction of vessel entering inferior aspect of left AV groove * RCA disease not considered * If Co-Dominant: * RCA to junction free wall / inferior wall * LCX to junction of vessel entering inferior aspect of left AV groove Procedure Note Miguel Lopez M.D., Ph.D. - 07/13/2024 EXAM: CT CARDIAC ANGIO STRUCTURAL HEART W ANNABELLE ARTERIES W IV CONTRAST, CTCHEST ANGIOGRAM WITH IV CONTRAST ECG-gated CT angiogram of the chest and heart, including independentworkstation 3D reformations, performed per the TAVR procedure planningprotocol, with CT angiography of the abdomen and pelvis. COMPARISON: None CARDIAC FINDINGS: AORTIC VALVE: Morphology: Tricuspid aortic valve. Leaflet thickness: Severely increased cusp thickness. Leaflet mobility: Severe restriction of leaflet motion. Leaflet calcification: Present. Involves all valve cusps. Calcium score: 5439. LVOT Calcification: No calcifications in the left ventricular outflowtract. Other findings: None AORTIC VALVE/ANNULUS MEASUREMENTS Aortic Valve Annulus (cardiac phase 15% R-R interval): * Diameter = 28.2 mm x 23.8 mm * Area = 5.37 cm2 * Average diameter = 26.2 mm * Perimeter = 83.8 mm Distance from Aortic Valve Annulus to: * Left main coronary artery origin = 15.2 mm * Right coronary artery origin = 15.6 mm * Sinotubular junction = 25.1 mm * Brachiocephalic artery origin = 116 mm Left Ventricular Outflow Tract 4 mm below the Aortic Valve Annulus(cardiac phase 15% R-R interval): * Diameter = 28.4 mm x 25.1 mm * Area = 5.65 cm2 * Average diameter = 26.8 mm * Perimeter = 85.3 mm Aortic Annulus Orthogonal Plane Angles: * Optimized Aortic Valve Plane N, R, L = 8 degrees MONGOLIAN ; 5 degrees FIELD LABORER * Craniocaudal tilt at 0 degrees MONGOLIAN = 7 degrees CAU * Craniocaudal tilt at 10 degrees MONGOLIAN = 7 degrees FIELD LABORER * Craniocaudal tilt at 10 degrees POLLACK = 19 degrees CAU * R, L Cusp Overlap View = 11 degrees POLLACK ; 20 degrees CAU CORONARY ARTERIES: Coronary artery calcium score = 1025.50. Overall image quality for coronary evaluation: adequate Origins: Conventional Dominance: Right Left Main Coronary: Calcified plaque at ostium causes minimal stenosis. Left Anterior Descending: Patent proximal LAD. Calcified plaques cause upto mild stenosis in mid LAD. Bridging segment of mid LAD. Patent firstdiagonal. Left Circumflex: Calcified plaques cause moderate stenoses infirst and second obtuse marginal branches and distal left circumflex. Right Coronary: Scattered calcified plaques cause mild stenoses inproximal, mid and distal RCA. Patent PDA and visualized proximalposterolateral branch OTHER CARDIAC FINDINGS: Enlarged left ventricle with mildly reduced systolic function (visualestimate). No regional wall motion abnormalities. No resting first passperfusion defect. Mild asymmetric wall thickening of basal septum,measures up to 14 mm. No LV outflow tract obstruction or RITA. Normal right ventricular chamber size and systolic function. Left atrial enlargement. Normal-sized right atrium. Left atrial appendage is well opacified. No intracardiac thrombus in leftheart. Thickened mitral valve leaflets. Mild mitral annular calcification. Pericardium: Normal. VASCULAR FINDINGS: Thoracic Aorta: Thoracic aorta is patent and normal caliber. Scatteredcalcified and noncalcified plaque throughout the thoracic aorta. Leftaortic arch with conventional 3 vessel branching. Mixed density plaquecauses mild stenosis of left subclavian artery. Calcified plaque causes minimal ostial stenosis of rightsubclavian artery. Otherwise, visualized aortic arch branch vessels arepatent. No porcelain aorta. * Sinotubular Junction Diameter = 32.9 mm Central pulmonary arteries are patent. Main pulmonary artery is mildlydilated to 32 mm. Patent pulmonary veins drain into left atrium. ADDITIONAL FINDINGS: 4 mm triangular nodule along left major fissure, likely a lymph node. Minimal linear scar or atelectasis in right upper lobe. CAD-RADS CATEGORIES: (based on most severe single lesion) 0: 0%, No stenosis 1: 1-24%, Minimal stenosis 2: 25-49%, Mild stenosis 3: 50-69%, Moderate stenosis 4: 70-99%, Severe stenosis 5: 100%, Occluded Modifiers: N: Non-diagnostic segment(s) S: Stent G: Graft V:Vulnerable plaque Proximal Obstructive Coronary Disease for Pre-TAVR Defined as >=50%stenosis in: * Left Main * LAD to 2nd Diagonal * If Right Dominant: * RCA to junction free wall / inferior wall * LCx to 1st OM OR largest OM * If Left Dominant: * LCX to junction of vessel entering inferior aspect of left AV groove * RCA disease not considered * If Co-Dominant: * RCA to junction free wall / inferior wall * LCX to junction of vessel entering inferior aspect of left AV groove IMPRESSION: 1. Tricuspid aortic valve with calcific aortic stenosis. Please see TAVRprocedure planning measurements in the Findings section. 2. Overall Coronary CT angiography image quality was adequate. Extensivecalcified plaque causes moderate stenoses in distal left circumflex andfirst and second obtuse marginal branches. Proximal obstructive disease(as defined in the body of the report for pre-TAVR evaluation): Absent. CAD-RADS 3/P3. This examination was performed in conjunction with a CT of the Abdomen andPelvis, which will be reported separately. Because nitroglycerin could not be administered, this study was not sentfor coronary FFRct analysis us Danyell BarSDimple, Ph.D. G CT PROCEDUR ES Final Result * CT Abdomen Pelvis Angiogram with IV Contrast (07/13/2024 1:36 PM DERRICK BARGE OPERATOR) Anatomical Region Laterality Modality Abdomen, Pelvis, Cardiovascu lar RST LOS, Abdominal ARZ LOS, Vascular Interventional ARZ LOS, Abdominal FLA LOS, Vascular Interventional FLA LOS, Procedural, Vascular Interventional NWWI LOS N/A Computed Tomography, Compute d Tomography 07/13/2024 12:5 5 PM DERRICK BARGE OPERATOR Impressions 07/13/2024 2:16 PM DERRICK BARGE OPERATOR 1. Moderate peripheral arterial disease. No flow-limiting lesions. Noncalcified nodular plaques protrude into lumen of distal infrarenal aorta and right common iliac artery. Please see verified arterial measurements in QREADS. This examination was performed in conjunction with a CT of the Chest, which will be reported separately. Narrative 07/13/2024 2:16 PM DERRICK BARGE OPERATOR REVISED REPORT: EXAM: CT ABDOMEN PELVIS ANGIOGRAM WITH IV CONTRAST CTA of the abdomen and pelvis with intravenous contrast, including independent workstation 3D reformations, performed as part of a pre-TAVR protocol. COMPARISON: None VASCULAR FINDINGS: ABDOMINAL AORTA: Moderate calcified and noncalcified atherosclerotic plaque, including noncalcified nodular and protruding plaque along posterior wall of distal infrarenal aorta. No significant aortic stenosis. No abdominal aortic aneurysm. ILIOFEMORAL ARTERIES: Right common iliac artery: Mild mixed density plaque, includes a nodular and mildly protruding noncalcified plaque. No significant stenosis. Normal caliber. Right external iliac artery: No plaque. No significant stenosis. Normal caliber. Right internal iliac artery: Minimal plaque. No significant stenosis. Normal caliber. Right common femoral artery: Minimal plaque. No significant stenosis. Normal caliber. Proximal right deep and superficial femoral arteries are patent. Left common iliac artery: Mild mixed density plaque. No significant stenosis. Normal caliber. Left external iliac artery: No plaque. No significant stenosis. Normal caliber. Left internal iliac artery: Mild calcified and noncalcified plaque causes up to mild stenosis. Normal caliber. Left common femoral artery: Minimal plaque. No significant stenosis. Normal caliber. Proximal left deep and superficial femoral arteries are patent. VISCERAL ARTERIES: Renal Arteries: Single and patent bilaterally Celiac artery: Patent Superior mesenteric artery: Patent ostial and proximal segments. Mixed density plaque causes mild stenosis in mid SMA. Inferior mesenteric artery: Patent ADDITIONAL FINDINGS: Moderate hiatal hernia. Cholecystectomy. No bile duct dilatation. Bilateral renal cysts. Nonspecific bilateral inguinal and external iliac lymph nodes, largest measures 13 mm short axis (right inguinal). Degenerative changes in the spine. Slight anterior wedging of T10 and T11. Procedure Note Miguel Lopez M.D., Ph.D. - 07/14/2024 REVISED REPORT: EXAM: CT ABDOMEN PELVIS ANGIOGRAM WITH IV CONTRAST CTA of the abdomen and pelvis with intravenous contrast, includingindependent workstation 3D reformations, performed as part of a pre-TAVRprotocol. COMPARISON: None VASCULAR FINDINGS: ABDOMINAL AORTA: Moderate calcified and noncalcified atheroscleroticplaque, including noncalcified nodular and protruding plaque alongposterior wall of distal infrarenal aorta. No significant aortic stenosis.No abdominal aortic aneurysm. ILIOFEMORAL ARTERIES: Right common iliac artery: Mild mixed density plaque, includes a nodularand mildly protruding noncalcified plaque. No significant stenosis. Normalcaliber. Right external iliac artery: No plaque. No significant stenosis. Normalcaliber. Right internal iliac artery: Minimal plaque. No significant stenosis.Normal caliber. Right common femoral artery: Minimal plaque. No significant stenosis.Normal caliber. Proximal right deep and superficial femoral arteries arepatent. Left common iliac artery: Mild mixed density plaque. No significantstenosis. Normal caliber. Left external iliac artery: No plaque. No significant stenosis. Normalcaliber. Left internal iliac artery: Mild calcified and noncalcified plaque causesup to mild stenosis. Normal caliber. Left common femoral artery: Minimal plaque. No significant stenosis.Normal caliber. Proximal left deep and superficial femoral arteries arepatent. VISCERAL ARTERIES: Renal Arteries: Single and patent bilaterally Celiac artery: Patent Superior mesenteric artery: Patent ostial and proximal segments. Mixeddensity plaque causes mild stenosis in mid SMA. Inferior mesenteric artery: Patent ADDITIONAL FINDINGS: Moderate hiatal hernia. Cholecystectomy. No bile duct dilatation. Bilateral renal cysts. Nonspecific bilateral inguinal and external iliac lymph nodes, largestmeasures 13 mm short axis (right inguinal). Degenerative changes in the spine. Slight anterior wedging of T10 andT11. IMPRESSION: 1. Moderate peripheral arterial disease. No flow-limiting lesions.Noncalcified nodular plaques protrude into lumen of distal infrarenalaorta and right common iliac artery. Please see verified arterialmeasurements in QREADS. This examination was performed in conjunction with a CT of the Chest,which will be reported separately. us Danyell Walsh, Ph.D. [facility] [place] CT PROCEDUR ES Edited Result - Final * CT Chest Angiogram with IV Contrast (07/13/2024 1:36 PM DERRICK BARGE OPERATOR) Anatomical Region Laterality Modality Chest, Cardiovascular RST LO S, Thoracic ARZ LOS, Thoracic FLA LOS, Vascular Interventional ARZ LOS, Procedural, Vascular Interventional NWWI LOS N/A Computed Tomography, Computed Tomography Impressions 07/13/2024 3:16 PM DERRICK BARGE OPERATOR 1. Tricuspid aortic valve with calcific aortic stenosis. Please see TAVR procedure planning measurements in the Findings section. 2. Overall Coronary CT angiography image quality was adequate. Extensive calcified plaque causes moderate stenoses in distal left circumflex and first and second obtuse marginal branches. Proximal obstructive disease (as defined in the body of the report for pre-TAVR evaluation): Absent. CAD-RADS 3/P3. This examination was performed in conjunction with a CT of the Abdomen and Pelvis, which will be reported separately. Because nitroglycerin could not be administered, this study was not sent for coronary FFRct analysis Narrative 07/13/2024 3:16 PM DERRICK BARGE OPERATOR EXAM: CT CARDIAC ANGIO STRUCTURAL HEART W ANNABELLE ARTERIES W IV CONTRAST, CT CHEST ANGIOGRAM WITH IV CONTRAST ECG-gated CT angiogram of the chest and heart, including independent workstation 3D reformations, performed per the TAVR procedure planning protocol, with CT angiography of the abdomen and pelvis. COMPARISON: None CARDIAC FINDINGS: AORTIC VALVE: Morphology: Tricuspid aortic valve. Leaflet thickness: Severely increased cusp thickness. Leaflet mobility: Severe restriction of leaflet motion. Leaflet calcification: Present. Involves all valve cusps. Calcium score: 5439. LVOT Calcification: No calcifications in the left ventricular outflow tract. Other findings: None AORTIC VALVE/ANNULUS MEASUREMENTS Aortic Valve Annulus (cardiac phase 15% R-R interval): * Diameter = 28.2 mm x 23.8 mm * Area = 5.37 cm2 * Average diameter = 26.2 mm * Perimeter = 83.8 mm Distance from Aortic Valve Annulus to: * Left main coronary artery origin = 15.2 mm * Right coronary artery origin = 15.6 mm * Sinotubular junction = 25.1 mm * Brachiocephalic artery origin = 116 mm Left Ventricular Outflow Tract 4 mm below the Aortic Valve Annulus (cardiac phase 15% R-R interval): * Diameter = 28.4 mm x 25.1 mm * Area = 5.65 cm2 * Average diameter = 26.8 mm * Perimeter = 85.3 mm Aortic Annulus Orthogonal Plane Angles: * Optimized Aortic Valve Plane N, R, L = 8 degrees MONGOLIAN ; 5 degrees FIELD LABORER * Craniocaudal tilt at 0 degrees MONGOLIAN = 7 degrees CAU * Craniocaudal tilt at 10 degrees MONGOLIAN = 7 degrees FIELD LABORER * Craniocaudal tilt at 10 degrees POLLACK = 19 degrees CAU * R, L Cusp Overlap View = 11 degrees POLLACK ; 20 degrees CAU CORONARY ARTERIES: Coronary artery calcium score = 1025.50. Overall image quality for coronary evaluation: adequate Origins: Conventional Dominance: Right Left Main Coronary: Calcified plaque at ostium causes minimal stenosis. Left Anterior Descending: Patent proximal LAD. Calcified plaques cause up to mild stenosis in mid LAD. Bridging segment of mid LAD. Patent first diagonal. Left Circumflex: Calcified plaques cause moderate stenoses in first and second obtuse marginal branches and distal left circumflex. Right Coronary: Scattered calcified plaques cause mild stenoses in proximal, mid and distal RCA. Patent PDA and visualized proximal posterolateral branch OTHER CARDIAC FINDINGS: Enlarged left ventricle with mildly reduced systolic function (visual estimate). No regional wall motion abnormalities. No resting first pass perfusion defect. Mild asymmetric wall thickening of basal septum, measures up to 14 mm. No LV outflow tract obstruction or RITA. Normal right ventricular chamber size and systolic function. Left atrial enlargement. Normal-sized right atrium. Left atrial appendage is well opacified. No intracardiac thrombus in left heart. Thickened mitral valve leaflets. Mild mitral annular calcification. Pericardium: Normal. VASCULAR FINDINGS: Thoracic Aorta: Thoracic aorta is patent and normal caliber. Scattered calcified and noncalcified plaque throughout the thoracic aorta. Left aortic arch with conventional 3 vessel branching. Mixed density plaque causes mild stenosis of left subclavian artery. Calcified plaque causes minimal ostial stenosis of right subclavian artery. Otherwise, visualized aortic arch branch vessels are patent. No porcelain aorta. * Sinotubular Junction Diameter = 32.9 mm Central pulmonary arteries are patent. Main pulmonary artery is mildly dilated to 32 mm. Patent pulmonary veins drain into left atrium. ADDITIONAL FINDINGS: 4 mm triangular nodule along left major fissure, likely a lymph node. Minimal linear scar or atelectasis in right upper lobe. CAD-RADS CATEGORIES: (based on most severe single lesion) 0: 0%, No stenosis 1: 1-24%, Minimal stenosis 2: 25-49%, Mild stenosis 3: 50-69%, Moderate stenosis 4: 70-99%, Severe stenosis 5: 100%, Occluded Modifiers: N: Non-diagnostic segment(s) S: Stent G: Graft V: Vulnerable plaque Proximal Obstructive Coronary Disease for Pre-TAVR Defined as >=50% stenosis in: * Left Main * LAD to 2nd Diagonal * If Right Dominant: * RCA to junction free wall / inferior wall * LCx to 1st OM OR largest OM * If Left Dominant: * LCX to junction of vessel entering inferior aspect of left AV groove * RCA disease not considered * If Co-Dominant: * RCA to junction free wall / inferior wall * LCX to junction of vessel entering inferior aspect of left AV groove Procedure Note Miguel Lopez M.D., Ph.D. - 07/13/2024 EXAM: CT CARDIAC ANGIO STRUCTURAL HEART W ANNABELLE ARTERIES W IV CONTRAST, CTCHEST ANGIOGRAM WITH IV CONTRAST ECG-gated CT angiogram of the chest and heart, including independentworkstation 3D reformations, performed per the TAVR procedure planningprotocol, with CT angiography of the abdomen and pelvis. COMPARISON: None CARDIAC FINDINGS: AORTIC VALVE: Morphology: Tricuspid aortic valve. Leaflet thickness: Severely increased cusp thickness. Leaflet mobility: Severe restriction of leaflet motion. Leaflet calcification: Present. Involves all valve cusps. Calcium score: 5439. LVOT Calcification: No calcifications in the left ventricular outflowtract. Other findings: None AORTIC VALVE/ANNULUS MEASUREMENTS Aortic Valve Annulus (cardiac phase 15% R-R interval): * Diameter = 28.2 mm x 23.8 mm * Area = 5.37 cm2 * Average diameter = 26.2 mm * Perimeter = 83.8 mm Distance from Aortic Valve Annulus to: * Left main coronary artery origin = 15.2 mm * Right coronary artery origin = 15.6 mm * Sinotubular junction = 25.1 mm * Brachiocephalic artery origin = 116 mm Left Ventricular Outflow Tract 4 mm below the Aortic Valve Annulus(cardiac phase 15% R-R interval): * Diameter = 28.4 mm x 25.1 mm * Area = 5.65 cm2 * Average diameter = 26.8 mm * Perimeter = 85.3 mm Aortic Annulus Orthogonal Plane Angles: * Optimized Aortic Valve Plane N, R, L = 8 degrees MONGOLIAN ; 5 degrees FIELD LABORER * Craniocaudal tilt at 0 degrees MONGOLIAN = 7 degrees CAU * Craniocaudal tilt at 10 degrees MONGOLIAN = 7 degrees FIELD LABORER * Craniocaudal tilt at 10 degrees POLLACK = 19 degrees CAU * R, L Cusp Overlap View = 11 degrees POLLACK ; 20 degrees CAU CORONARY ARTERIES: Coronary artery calcium score = 1025.50. Overall image quality for coronary evaluation: adequate Origins: Conventional Dominance: Right Left Main Coronary: Calcified plaque at ostium causes minimal stenosis. Left Anterior Descending: Patent proximal LAD. Calcified plaques cause upto mild stenosis in mid LAD. Bridging segment of mid LAD. Patent firstdiagonal. Left Circumflex: Calcified plaques cause moderate stenoses infirst and second obtuse marginal branches and distal left circumflex. Right Coronary: Scattered calcified plaques cause mild stenoses inproximal, mid and distal RCA. Patent PDA and visualized proximalposterolateral branch OTHER CARDIAC FINDINGS: Enlarged left ventricle with mildly reduced systolic function (visualestimate). No regional wall motion abnormalities. No resting first passperfusion defect. Mild asymmetric wall thickening of basal septum,measures up to 14 mm. No LV outflow tract obstruction or RITA. Normal right ventricular chamber size and systolic function. Left atrial enlargement. Normal-sized right atrium. Left atrial appendage is well opacified. No intracardiac thrombus in leftheart. Thickened mitral valve leaflets. Mild mitral annular calcification. Pericardium: Normal. VASCULAR FINDINGS: Thoracic Aorta: Thoracic aorta is patent and normal caliber. Scatteredcalcified and noncalcified plaque throughout the thoracic aorta. Leftaortic arch with conventional 3 vessel branching. Mixed density plaquecauses mild stenosis of left subclavian artery. Calcified plaque causes minimal ostial stenosis of rightsubclavian artery. Otherwise, visualized aortic arch branch vessels arepatent. No porcelain aorta. * Sinotubular Junction Diameter = 32.9 mm Central pulmonary arteries are patent. Main pulmonary artery is mildlydilated to 32 mm. Patent pulmonary veins drain into left atrium. ADDITIONAL FINDINGS: 4 mm triangular nodule along left major fissure, likely a lymph node. Minimal linear scar or atelectasis in right upper lobe. CAD-RADS CATEGORIES: (based on most severe single lesion) 0: 0%, No stenosis 1: 1-24%, Minimal stenosis 2: 25-49%, Mild stenosis 3: 50-69%, Moderate stenosis 4: 70-99%, Severe stenosis 5: 100%, Occluded Modifiers: N: Non-diagnostic segment(s) S: Stent G: Graft V:Vulnerable plaque Proximal Obstructive Coronary Disease for Pre-TAVR Defined as >=50%stenosis in: * Left Main * LAD to 2nd Diagonal * If Right Dominant: * RCA to junction free wall / inferior wall * LCx to 1st OM OR largest OM * If Left Dominant: * LCX to junction of vessel entering inferior aspect of left AV groove * RCA disease not considered * If Co-Dominant: * RCA to junction free wall / inferior wall * LCX to junction of vessel entering inferior aspect of left AV groove IMPRESSION: 1. Tricuspid aortic valve with calcific aortic stenosis. Please see TAVRprocedure planning measurements in the Findings section. 2. Overall Coronary CT angiography image quality was adequate. Extensivecalcified plaque causes moderate stenoses in distal left circumflex andfirst and second obtuse marginal branches. Proximal obstructive disease(as defined in the body of the report for pre-TAVR evaluation): Absent. CAD-RADS 3/P3. This examination was performed in conjunction with a CT of the Abdomen andPelvis, which will be reported separately. Because nitroglycerin could not be administered, this study was not sentfor coronary FFRct analysis Danyell Walsh, Ph.D. IMG CT PROCEDUR ES Final Result * (ABNORMAL) Creatinine, POCT (07/13/2024 12:01 PM DERRICK BARGE OPERATOR) Only the most recent of2 resultswithin the time period is included. Estimated GFR (eGFR), POCT 32(L) >=60 mL/min/BSA 07/13/2024 12:06 PM DERRICK BARGE OPERATOR PCMO Comment: Estimated GFR calculated using the 2020 CKD_EPI creatinine equation. Blood 07/13/2024 12:0 1 PM DERRICK BARGE OPERATOR 07/13/2024 12:05 PM DERRICK BARGE OPERATOR us Unknown Provider LAB POCT ORDERABLES - DEVICE Fi nal Result [facility]OC [facility] [address] [place], [place] [address] PCMO [facility] [address] [place] [address] * (ABNORMAL) NT-Pro B-Type Natriuretic Peptide (BNP) (07/13/2024 10:51 AM DERRICK BARGE OPERATOR) NT-Pro BNP 1121(H) <=540 pg/mL 07/13/2024 12:22 PM DERRICK BARGE OPERATOR DTL Comment: NT-proBNP values less than 300 pg/mL have a 99% negative predictive value for excluding acute congestive heart failure. A cutoff of 1200 pg/mL for patients with an eGFR<60 yields a diagnostic sensitivity and specificity of 89% and 72% for acute congestive heart failure. A diagnostic NT-proBNP cutoff of 1800 pg/mL has been suggested in adults over 75 years of age in the absence of renal failure. Blood (Blood, Venous) 07/13/2024 10:51 AM DERRICK BARGE OPERATOR 07/13/2024 11:29 AM DERRICK BARGE OPERATOR Danyell GuilloryB.S., Ph.D. LAB BLOOD ADD-O N Final Result [facility] [address] [place] [address], [facility] DTL [facility] [address] [place] [address] * Prothrombin Time (PT) (07/13/2024 10:51 AM DERRICK BARGE OPERATOR) Prothrombin Time, P 11.3 9.4 - 12.5 sec 07/13/2024 11:33 AM DERRICK BARGE OPERATOR DTL INR 1.0 0.9 - 1.1 07/13/2024 11:33 AM DERRICK BARGE OPERATOR DTL Comment: ----ADDITIONAL INFORMATION---- Standard intensity warfarin therapeutic range: 2.0 to 3.0 High intensity warfarin therapeutic range: 2.5 to 3.5 Blood (Blood, Venous) 07/13/2024 10:51 AM DERRICK BARGE OPERATOR 07/13/2024 11:13 AM DERRICK BARGE OPERATOR Danyell Woodson.B.S., Ph.D. LAB BLOOD ADD-O N Final Result [facility] [address] [place] [address], [facility] DTL [facility] [address] [place] [address] * (ABNORMAL) CBC with Differential, Blood (07/13/2024 10:51 AM DERRICK BARGE OPERATOR) Hemoglobin 11.8(L) 13.2 - 16.6 g/dL 07/13/2024 12:03 PM DERRICK BARGE OPERATOR DTL Hematocrit 34.8(L) 38.3 - 48.6 % 07/13/2024 12:03 PM DERRICK BARGE OPERATOR DTL Erythrocytes 3.65(L) 4.35 - 5.65 x10(12)/L 07/13/2024 12:03 PM DERRICK BARGE OPERATOR DTL MCV 95.3 78.2 - 97.9 fL 07/13/2024 12:03 PM DERRICK BARGE OPERATOR DTL RBC Distrib Width 12.3 11.8 - 14.5 % 07/13/2024 12:03 PM DERRICK BARGE OPERATOR DTL Platelet Count 231 135 - 317 x10(9)/L 07/13/2024 12:03 PM DERRICK BARGE OPERATOR DTL Leukocytes 6.4 3.4 - 9.6 x10(9)/L 07/13/2024 12:03 PM DERRICK BARGE OPERATOR DTL Neutrophils 3.78 1.56 - 6.45 x10(9)/L 07/13/2024 12:03 PM DERRICK BARGE OPERATOR DHPM Lymphocytes 1.82 0.95 - 3.07 x10(9)/L 07/13/2024 12:03 PM DERRICK BARGE OPERATOR DTL Monocytes 0.58 0.26 - 0.81 x10(9)/L 07/13/2024 12:03 PM DERRICK BARGE OPERATOR DTL Eosinophils 0.10 0.03 - 0.48 x10(9)/L 07/13/2024 12:03 PM DERRICK BARGE OPERATOR DTL Basophils 0.15(H) 0.01 - 0.08 x10(9)/L 07/13/2024 12:03 PM DERRICK BARGE OPERATOR DTL Blood (Blood, Venous) 07/13/2024 10:51 AM DERRICK BARGE OPERATOR 07/13/2024 11:13 AM DERRICK BARGE OPERATOR Danyell Walsh, Ph.D. LAB BLOOD ADD-O N Final Result Performing Organization Address City/[facility]/ZIP Co de Phone Number [facility] [address] [place] [address], [place] DTL [facility] [address] [place] [address] DHPM [facility] [address] [place] [address] * Type and Screen (with Reflex Antibody ID) (07/13/2024 10:51 AM DERRICK BARGE OPERATOR) Pathologist [facility] ABORh A Pos Not applicable 07/13/2024 4:01 PM DERRICK BARGE OPERATOR ETRM Antibody Screen Negative Negative 07/13/2024 4:11 PM DERRICK BARGE OPERATOR ETRM Type & Screen Expiration 09/10/2024 23:59 07/13/2024 4:01 PM DERRICK BARGE OPERATOR ETRM Testing Location [place] DEFAULT 07/13/2024 11:17 AM DERRICK BARGE OPERATOR ETRM Blood (Blood, Venous) 07/13/2024 10:51 AM DERRICK BARGE OPERATOR 07/13/2024 11:17 AM DERRICK BARGE OPERATOR Danyell Walsh, Ph.D. LAB BLOOD BANK TEST ORDERABLES Final Result Performing Organization Address [facility] Co de Phone Number [facility] [address] [place] [address], [facility] ETRM [facility] [address] [place] [address] * (ABNORMAL) Comprehensive Metabolic Panel (07/13/2024 10:51 AM DERRICK BARGE OPERATOR) [facility] Potassium, S 3.9 3.6 - 5.2 mmol/L 07/13/2024 12:22 PM DERRICK BARGE OPERATOR DTL Sodium, S 139 135 - 145 mmol/L 07/13/2024 12:22 PM DERRICK BARGE OPERATOR DTL Chloride, S 105 98 - 107 mmol/L 07/13/2024 12:22 PM DERRICK BARGE OPERATOR DTL Bicarbonate, S 22 22 - 29 mmol/L 07/13/2024 12:22 PM DERRICK BARGE OPERATOR DTL Anion Gap 12 7 - 15 07/13/2024 12:22 PM DERRICK BARGE OPERATOR DTL BUN (Blood Urea Nitrogen), S 27(H) 8 - 24 mg/dL 07/13/2024 12:22 PM DERRICK BARGE OPERATOR DTL Creatinine 1.94(H) 0.74 - 1.35 mg/dL 07/13/2024 12:22 PM DERRICK BARGE OPERATOR DTL Estimated GFR (eGFR) 35(L) >=60 mL/min/BS A 07/13/2024 12:22 PM DERRICK BARGE OPERATOR DTL Comment: Estimated GFR calculated using the 2020 CKD_EPI creatinine equation. Calcium, Total, S 9.1 8.8 - 10.2 mg/dL 07/13/2024 12:22 PM DERRICK BARGE OPERATOR DTL Glucose, S 118 70 - 140 mg/dL 07/13/2024 12:22 PM DERRICK BARGE OPERATOR DTL Protein, Total, S 6.5 6.3 - 7.9 g/dL 07/13/2024 12:22 PM DERRICK BARGE OPERATOR DTL Albumin, S 4.1 3.5 - 5.0 g/dL 07/13/2024 12:22 PM DERRICK BARGE OPERATOR DTL Aspartate Aminotransferase (AST), S 20 8 - 48 U/L 07/13/2024 12:22 PM DERRICK BARGE OPERATOR DTL Alkaline Phosphatase, S 54 40 - 129 U/L 07/13/2024 12:22 PM DERRICK BARGE OPERATOR DTL Alanine Aminotransferase (ALT), S 12 7 - 55 U/L 07/13/2024 12:22 PM DERRICK BARGE OPERATOR DTL Bilirubin, Total, S 0.3 0.0 - 1.2 mg/dL 07/13/2024 12:22 PM DERRICK BARGE OPERATOR DTL Blood (Blood, Venous) 07/13/2024 10:51 AM DERRICK BARGE OPERATOR 07/13/2024 11:29 AM DERRICK BARGE OPERATOR us Danyell GuilloryBDimpleS., Ph.D. LAB BLOOD ADD-O N Final Result [facility] [address] [place] [address], [facility] DTL [facility] [address] [place] [address] * (ABNORMAL) Lipid Panel (07/13/2024 10:46 AM DERRICK BARGE OPERATOR) Triglycerides 162(H) mg/dL 07/13/2024 2:15 PM DERRICK BARGE OPERATOR DTL Comment: ----REFERENCE VALUE---- Normal: <150 mg/dL Borderline High: 150-199 mg/dL High: 200-499 mg/dL Very High: > or =500 mg/dL Cholesterol, Total 125 mg/dL 2023 2:15 PM DERRICK BARGE OPERATOR DTL Comment: ----REFERENCE VALUE---- Desirable: < 200 mg/dL Borderline High: 200 - 239 mg/dL High: > or = 240 mg/dL Cholesterol, LDL, Calculated 60 mg/dL 07/13/2024 2:15 PM DERRICK BARGE OPERATOR DTL Comment: ----REFERENCE VALUE---- Desirable: <100 mg/dL Above Desirable: 100-129 mg/dL Borderline High: 130-159 mg/dL High: 160-189 mg/dL Very High: >=190 mg/dL ----ADDITIONAL INFORMATION---- LDL cholesterol calculated using the Lim/NIH equation. Cholesterol, HDL, S 37(L) >=40 mg/dL 07/13/2024 2:15 PM DERRICK BARGE OPERATOR DTL Cholesterol, Non-HDL, Calculated 88 mg/dL 07/13/2024 2:15 PM DERRICK BARGE OPERATOR DTL Comment: ----REFERENCE VALUE---- Desirable: <130 mg/dL Above Desirable: 130-159 mg/dL Borderline High: 160-189 mg/dL High: 190-219 mg/dL Very High: > or =220 mg/dL Fasting (8 HR or more) Unknown 07/13/2024 1:22 PM DERRICK BARGE OPERATOR DTL Blood 07/13/2024 10:4 6 AM DERRICK BARGE OPERATOR 07/13/2024 1:22 PM DERRICK BARGE OPERATOR us Danyell BarSDimple, Ph.D. LAB BLOOD ADD-O N Final Result [facility] [address] [place] [address], [place] [facility] [address] [place] [address] * Thyroid Function [place] (07/13/2024 10:46 AM DERRICK BARGE OPERATOR) [facility] TSH, Sensitive 2.7 0.3 - 4.2 mIU/L 07/13/2024 2:15 PM DERRICK BARGE OPERATOR DTL Blood (Blood, Venous) 07/13/2024 10:46 AM DERRICK BARGE OPERATOR 07/13/2024 1:22 PM DERRICK BARGE OPERATOR Danyell Walsh, Ph.D. LAB BLOOD ADD-O N Final Result Performing Organization Address City/[facility]/ZIP Co de Phone Number [facility] [address] [place] [address], [facility] [address] [place] [address] * Hemoglobin A1c (07/13/2024 10:46 AM DERRICK BARGE OPERATOR) [facility] Hemoglobin A1c, B 5.5 4.0 - 5.6 % 07/13/2024 4:30 PM DERRICK BARGE OPERATOR DT Blood (Blood, Venous) 07/13/2024 10:46 AM DERRICK BARGE OPERATOR 07/13/2024 1:12 PM DERRICK BARGE OPERATOR Danyell GuilloryBZion, Ph.D. LAB BLOOD ADD-O N Final Result Performing Organization Address [facility] Co de Phone Number [facility] [address] [place] [address], [facility] [address] [place] [address] from Last 3 Months Insurance MEDICARE [facility] Advance Directives For more information, please contact: [phone] * Full Code (Latest Code Status on File) Date Activated Date Inactivated Comments 08/03/2024 1:21 PM 08/04/2024 2:16 PM Question Answer Comments Full Code: Discussed Care Teams Material Assistant Relationship Specialty Start Date End Date Elsewhere, Pcp PCP - General Internal Medicine 08/03/24
--- OUTSIDE RECORDS SUMMARY | 2024-08-08 15:11 | XMS_ITS ---
Author Organization [facility] Address [address] [place] [address] Care Team Providers Care Roving Technician Name Role Phone Unavailable Unavailable Unavailable Surgery Details Not on file Complications Check Surgery Details section. Procedure Estimated Blood Loss Check Surgery Details section. Procedure Findings Check Surgery Details section. Procedure Specimens Taken Check Surgery Details section.
--- OUTSIDE RECORDS SUMMARY | 2024-08-08 15:11 | XMS_ITS | Referral Summary ---
Author Organization [facility] Address [address] [place] [id number] Care Team Providers Care Or Rn Name Role Phone Elsewhere, Pcp Primary Care Provider Unavailabl e Source Comments Patient records contain information from all sites at [facility]. For routine questions regarding patient records, call [phone] during business hours, M-F 8:00 AM - 5:00 PM Central Time. Record requests for emergency care only can be directed to [phone] at any time.[facility] Encounters Date Type Department Care Team Description 08/04/2024 Clinical Communication Department of Cardiovascular Medicine in [address] [phone] Nelson Jones M.D., Ph.D. DEVICE REGISTRATION 08/03/2024 5:48 AM GAS STATION CASHIER - 08/04/2024 12:16 PM GAS STATION CASHIER Hospital Encounter [facility], Sixth Floor [address] [place] [phone] Nelson Jones M.D., Ph.D. Prosthesis Aortic Valve (Primary Dx); Stenosis Aortic Valve Acquired Discharge Disposition: Home or Self Care 08/03/2024 Clinical Communication Department of Cardiovascular Medicine in [place], [place] [address] [place] [phone] Enrico Knight, LILIBETH, C.N.P., M.S.N. 08/03/2024 12:23 PM GAS STATION CASHIER Anesthesia Event Division of Cardiovascular Diseases in [address] [phone] Laura Castaneda APRN, AVI 08/03/2024 11:30 AM GAS STATION CASHIER - 08/03/2024 2:00 PM GAS STATION CASHIER Surgery Division of Cardiovascular Diseases in [address] [phone] Chano Powell M.D., M.S. PPM Implant - Dual Chamber 08/03/2024 8:00 AM GAS STATION CASHIER - 08/03/2024 11:46 AM GAS STATION CASHIER Surgery Division of Cardiovascular Diseases in [address] [phone] Nelson Jones M.D., Ph.D. CV TRANSCATHETER AORTIC VALVE REPLACEMENT 08/01/2024 1:00 PM GAS STATION CASHIER Virtual Visit Department of Cardiovascular Medicine in [place], [place] [address] [place] [phone] Emely Dominguez, R.N. Hypertensive Chronic Kidney Disease With Stage 1 Through Stage 4 Chronic Kidney Disease, Or Unspecified Chronic Kidney Disease (Primary Dx); Stenosis Aortic Valve Acquired; Obstructive Sleep Apnea Adult 07/15/2024 11:00 AM GAS STATION CASHIER Education Department of Patient Education in [place], [place] [address] [place] [phone] Danyell Morris M.B.B.SDimple, Ph.D. Stenosis Aortic Valve Acquired 07/15/2024 4:30 PM GAS STATION CASHIER Comprehensive Visit Department of Cardiovascular Surgery in [address] [phone] Rafael Shah M.D. Acquired Aortic Valve Disorder (Primary Dx) 07/15/2024 3:30 PM GAS STATION CASHIER Comprehensive Visit Department of Cardiovascular Medicine in [address] [phone] Nelson Jones M.D., Ph.D. Stenosis Aortic Valve Acquired 07/14/2024 Clinical Communication Department of Cardiovascular Medicine in [place], [place] [address] [place] [phone] Danyell Morris M.B.B.SDimple, Ph.D. Forms (Dental Clearance) 07/13/2024 10:41 AM GAS STATION CASHIER - 07/13/2024 11:06 AM GAS STATION CASHIER Hospital Encounter Department of Laboratory Medicine and Pathology, [facility] in [place], [place] [address] [place] [phone] Danyell Morris M.B.B.S., Ph.D. Stenosis Aortic Valve Acquired Discharge Disposition: Home or Self Care 07/13/2024 9:41 AM GAS STATION CASHIER - 07/13/2024 10:40 AM GAS STATION CASHIER Hospital Encounter Department of Radiology, [facility] in [place], [place] [address] [place] [address] Danyell Morris M.B.B.S., Ph.D. Stenosis Aortic Valve Acquired Discharge Disposition: Home or Self Care 07/13/2024 11:07 AM GAS STATION CASHIER - 07/13/2024 11:59 PM GAS STATION CASHIER Hospital Encounter Department of Radiology, [facility] in [place], [place] [address] [place] [phone] Danyell Morris M.B.B.S., Ph.D. Stenosis Aortic Valve Acquired Discharge Disposition: Home or Self Care 07/13/2024 1:00 PM GAS STATION CASHIER Comprehensive Visit Department of Cardiovascular Medicine in [place], [place] [address] [place] [phone] Danyell Morris M.B.BDimpleSDimple, Ph.D. Stenosis Aortic Valve Acquired (Primary Dx); Obstructive Sleep Apnea Adult; Chronic Kidney Disease; Hypertension Essential Primary; Obesity Body Mass Index 30-39.9 Adult; Gastroesophageal Reflux Disease Without Esophagitis 05/30/2024 Clinical Communication Department of Cardiovascular Medicine in [place], [place] [address] [place] [phone] Danyell Morris M.B.B.S., Ph.D. Pre-visit Testing Orders 05/13/2024 Clinical Communication Department of Cardiovascular Medicine in [place], [place] [address] [place] [address] Danyell Morris M.B.BDimpleSDimple, Ph.D. Surgical Questions from Last 3 Months Allergies No known active allergies Medications omeprazole [...] Disease, Or Unspecified Chronic Kidney Disease 04/07/2012 Social History Tobacco Use Types Packs/Day Years Used Date Smoking Tobacco: Never Smokeless Tobacco: Never Tobacco Cessation:Counseling Given: Not Answered [facility] Utilities Answer Date Recorded In the past 12 months has th e [employer], gas, oil, or water company threatened to [...] your living situation today? I have a [facility] place to live 08/03/2024 Sex and Gender Information Value Date Recorded Sex Assigned at Male 07/11/2024 10:53 AM GAS STATION CASHIER Legal Sex Male 9:21 AM GAS STATION CASHIER Gender Identity Male 07/11/2024 10:53 AM GAS STATION CASHIER Sexual Orientation Straight 07/11/2024 10 :53 AM GAS STATION CASHIER Last Filed Vital Signs Vital Sign Reading Time Taken Comments Blood Pressure 110/65 08/04/2024 11:15 AM GAS STATION CASHIER Pulse 72 08/04/2024 11:15 AM GAS STATION CASHIER Temperature 37.3 C (99.1 F) 08/04/2024 11:18 AM GAS STATION CASHIER Respiratory Rate 18 08/04/2024 11:15 AM GAS STATION CASHIER Oxygen Saturation 95% 08/04/2024 11:15 AM GAS STATION CASHIER Inhaled Oxygen Concentration - - Weight 93.9 kg (207 lb 0.2 oz) 08/04/2024 3:04 A M GAS STATION CASHIER Height 170.5 cm (5' 7.13) 08/03/2024 6:10 AM CS T Body Mass Index 32.3 08/03/2024 6:10 AM GAS STATION CASHIER Plan of Treatment Upcoming Encounters Date Type Department Care Team (Latest Contact Info) Description 09/20/2024 9:00 AM GAS STATION CASHIER Clinical Communication Virtual Review in [place], [place] [address] [place] [phone] 09/21/2024 11:20 AM GAS STATION CASHIER Appointment Department of Laboratory Medicine and Pathology, [facility] in [place], [place] [address] [place] [phone] Enrico Knight APRN, C.N.P., M.S.N. [address] [place] [phone] 09/21/2024 11:40 AM GAS STATION CASHIER Ancillary Procedure Department of Cardiovascular Medicine in [place], [place] [address] [place] [phone] Enrico Knight APRN, C.N.P., M.S.N. [address] [place] [phone] 09/21/2024 12:15 PM GAS STATION CASHIER Appointment Department of Cardiovascular Diseases in [place], [place] [address] [place] [phone] Enrico Knight APRN, C.NДмитрий, M.S.N. [address] [place] [phone] Discharge Disposition: Home or Self Care 09/22/2024 9:30 AM GAS STATION CASHIER Office Visit Department of Cardiovascular Medicine in [place], [place] [address] [place] [phone] Edna Sandra APRN, C.N.P., M.S.N. [address] [place] [phone] Scheduled Procedures Name Priority Associated Diagnoses Date/Ti me ENDOSCOPY SLEEP STATE Obstructive Sleep Apnea Adult Medical Devices Implanted Type Area Upper Marker Device Identifier Shelf Expiration Date Model / Serial / Lot Lead Ppm Ingevity+ Biplr 59 - [id number] - [id number] Implanted:Qty : 1 on 08/03/2024 by Chano Powell M.D., M.S. at [facility] Cardiac Lead [employer] 12/20/2025 [id number] / [id number] / Lead Ppm Ingevity+ Biplr 52 - [id number] - [id number] Implanted:Qty : 1 on 08/03/2024 by Chano Powell M.D., M.S. at [facility] Cardiac Lead [employer] 06/01/2026 [id number] / [id number] / Vlv Zohra S3 Ultra 26 - [id number] - [id number] Implanted:Qty : 1 on 08/03/2024 by Nelson Jones M.D., Ph.D. at [facility] Cardiac Valve Prosthesis N/A: Heart [employer] 04/27/2027 [id number] / [id number] / Description:AO Valve Envelope Md Conrad - [id number] Implanted:Qty : 1 on 08/03/2024 by Chano Powell M.D., M.S. at [facility] Mesh or Patch [employer] 05/22/2025 [id number] / / [id number] Ppm Accolade Dr Desir Mri - [id number] - [id number] Implanted:Qty : 1 on 08/03/2024 by Chano Powell M.D., M.S. at [facility] Pacemaker [employer] 06/20/2026 [id number] / [id number] / Procedures Procedure Name Priority Date/Time Associated Diagnosis Comments CBC WITHOUT DIFFERENTIAL, B Routine 08/04/2024 9:22 AM GAS STATION CASHIER BASIC METABOLIC PANEL, S/P Routine 08/04/2024 9:22 AM GAS STATION CASHIER DX CHEST AP OR PA AND LATERAL 2 VIEWS RAD - Routine (most inpatients and all outpatients) 08/04/2024 8:51 AM GAS STATION CASHIER CAR CARDIAC DEVICE INTERROGATION Routine 08/04/2024 8:26 AM GAS STATION CASHIER Procedure Note - Roller Gold LeafMorgan M.D. - 08/04/2024 8:26 AM CSTThis note [...] was reviewed. ECG Routine 08/04/2024 6:58 AM GAS STATION CASHIER ECG Routine 08/04/2024 5:13 AM GAS STATION CASHIER ACT, POCT, B Routine 08/03/2024 6:04 PM GAS STATION CASHIER HEART RHYTHM PROCEDURE Routine 08/03/2024 3:42 PM GAS STATION CASHIER HEART RHYTHM PROCEDURE Routine 08/03/2024 3:42 PM GAS STATION CASHIER ADULT OXYGEN THERAPY Routine 08/03/2024 1:22 PM GAS STATION CASHIER ADULT OXYGEN THERAPY Routine 08/03/2024 1:22 PM GAS STATION CASHIER ADULT OXYGEN THERAPY Routine 08/03/2024 1:22 PM GAS STATION CASHIER CAR CARDIAC DEVICE INTERROGATION Routine 08/03/2024 11:52 AM GAS STATION CASHIER ECG Semiurgent (Fast, mo st ED patients, some inpatients) 08/03/2024 10:54 AM GAS STATION CASHIER CARDIAC CATHETERIZATION Routine 08/03/2024 9:51 AM GAS STATION CASHIER Stenosis Aortic Valve Acquired CARDIAC CATHETERIZATION Routine 08/03/2024 9:51 AM GAS STATION CASHIER Stenosis Aortic Valve Acquired CARDIAC CATHETERIZATION Routine 08/03/2024 9:51 AM GAS STATION CASHIER Stenosis Aortic Valve Acquired CARDIAC CATHETERIZATION Routine 08/03/2024 9:51 AM GAS STATION CASHIER Stenosis Aortic Valve Acquired (TTE) 2D LIMITED WITH COLOR AND LIMITED DOPPLER Routine 08/03/2024 9:50 AM GAS STATION CASHIER ACT, POCT, B Routine 08/03/2024 9:20 AM GAS STATION CASHIER TRANSCATHETER AORTIC VALVE REPLACEMENT TRANS FEMORAL 08/03/2024 7:58 AM GAS STATION CASHIER Stenosis Aortic Valve Acquired CT CHEST ANGIOGRAM WITH IV CONTRAST RAD - Routine (most inpatients and all outpatients) 07/13/2024 1:36 PM GAS STATION CASHIER Stenosis Aortic Valve Acquired CT CARDIAC ANGIO STRUCTURAL HEART W ANNABELLE ARTERIES W IV CONTRAST RAD - Routine (most inpatients and all outpatients) 07/13/2024 1:36 PM GAS STATION CASHIER Stenosis Aortic Valve Acquired CT ABDOMEN PELVIS ANGIOGRAM WITH IV CONTRAST RAD - Routine (most inpatients and all outpatients) 07/13/2024 1:36 PM GAS STATION CASHIER Stenosis Aortic Valve Acquired ECG Routine 07/13/2024 1:11 PM GAS STATION CASHIER Stenosis Aortic Valve Acquired CREATININE, POCT, B Routine 07/13/2024 12:01 PM GAS STATION CASHIER CREATININE, POCT, B Routine 07/13/2024 12:01 PM GAS STATION CASHIER NT-PRO B-TYPE NATRIURETIC PEPTIDE (BNP), S Routine 07/13/2024 10:51 AM GAS STATION CASHIER Stenosis Aortic Valve Acquired CBC WITH DIFFERENTIAL, B Routine 07/13/2024 10:51 AM GAS STATION CASHIER Stenosis Aortic Valve Acquired COMPREHENSIVE METABOLIC PANEL, S/P Routine 07/13/2024 10:51 AM GAS STATION CASHIER Stenosis Aortic Valve Acquired TYPE AND SCREEN Routine 07/13/2024 10:51 AM GAS STATION CASHIER Stenosis Aortic Valve Acquired PROTHROMBIN TIME (PT), P Routine 07/13/2024 10:51 AM GAS STATION CASHIER Stenosis Aortic Valve Acquired LIPID PANEL, S Routine 07/13/2024 10:46 AM GAS STATION CASHIER HEMOGLOBIN A1C, B Routine 07/13/2024 10:46 AM GAS STATION CASHIER Stenosis Aortic Valve Acquired Obstructive Sleep Apnea Adult Chronic Kidney Disease Hypertension Essential Primary Obesity Body Mass Index 30-39.9 Adult THYROID FUNCTION CASCADE, S Routine 07/13/2024 10:46 AM GAS STATION CASHIER Stenosis Aortic Valve Acquired Obstructive Sleep Apnea Adult Chronic Kidney Disease Hypertension Essential Primary Obesity Body Mass Index 30-39.9 Adult DX CHEST AP OR PA AND LATERAL 2 VIEWS RAD - Routine (most inpatients and all outpatients) 07/13/2024 9:48 AM GAS STATION CASHIER Stenosis Aortic Valve Acquired from Last 3 Months Results * (ABNORMAL) CBC without Differential (08/04/2024 9:22 AM GAS STATION CASHIER) Hemoglobin 11.9(L) 13.2 - 16.6 g/dL 08/04/2024 10:14 AM GAS STATION CASHIER DTL Hematocrit 35.2(L) 38.3 - 48.6 % 08/04/2024 10:14 AM GAS STATION CASHIER DTL Erythrocytes 3.66(L) 4.35 - 5.65 x10(12)/L 08/04/2024 10:14 AM GAS STATION CASHIER DTL MCV 96.2 78.2 - 97.9 fL 08/04/2024 10:14 AM GAS STATION CASHIER DTL RBC Distrib Width 12.0 11.8 - 14.5 % 08/04/2024 10:14 AM GAS STATION CASHIER DTL Platelet Count 139 135 - 317 x10(9)/L 08/04/2024 10:14 AM GAS STATION CASHIER DTL Leukocytes 8.9 3.4 - 9.6 x10(9)/L 08/04/2024 10:14 AM GAS STATION CASHIER DTL Blood (Blood, Venous) 08/04/2024 9:22 AM GAS STATION CASHIER 08/04/2024 9:40 AM GAS STATION CASHIER Enrico Knight APRN, C.N.P., M.S.N. LAB BLOOD A DD-ON Final Result [facility] [address] [place] [address], [facility] DTFormerly [facility] [address] [place] [address] * (ABNORMAL) Basic Metabolic Panel (08/04/2024 9:22 AM GAS STATION CASHIER) Potassium, S 4.3 3.6 - 5.2 mmol/L 08/04/2024 10:57 AM GAS STATION CASHIER DTL Sodium, S 134(L) 135 - 145 mmol/L 08/04/2024 10:57 AM GAS STATION CASHIER DTL Chloride, S 104 98 - 107 mmol/L 08/04/2024 10:57 AM GAS STATION CASHIER DTL Bicarbonate, S 20(L) 22 - 29 mmol/L 08/04/2024 10:57 AM GAS STATION CASHIER DTL Anion Gap 10 7 - 15 08/04/2024 10:57 AM GAS STATION CASHIER DTL BUN (Blood Urea Nitrogen), S 27(H) 8 - 24 mg/dL 08/04/2024 10:57 AM GAS STATION CASHIER DTL Creatinine 1.92(H) 0.74 - 1.35 mg/dL 08/04/2024 10:57 AM GAS STATION CASHIER DTL Estimated GFR (eGFR) 35(L) >=60 mL/min/BSA 08/04/2024 10:57 AM GAS STATION CASHIER DTL Comment: Estimated GFR calculated using the 2020 CKD_EPI creatinine equation. Calcium, Total, S 8.8 8.8 - 10.2 mg/dL 08/04/2024 10:57 AM GAS STATION CASHIER DTL Glucose, S 104 70 - 140 mg/dL 08/04/2024 10:57 AM GAS STATION CASHIER DTL Blood (Blood, Venous) 08/04/2024 9:22 AM GAS STATION CASHIER 08/04/2024 9:54 AM GAS STATION CASHIER Enrico Knight APRN, C.N.P., M.S.N. LAB BLOOD A DD-ON Final Result [facility] [address] [place] [address], [facility] [address] [place] [address] * DX Chest AP or PA and Lateral 2 Views (08/04/2024 8:51 AM GAS STATION CASHIER) Only the most recent of2 resultswithin the time period is included. Anatomical Region Laterality Modality Chest, Thoracic RST LOS, Tho racic ARZ LOS, Thoracic FLA LOS N/A Digital Radiography Impressions 08/04/2024 8:56 AM GAS STATION CASHIER Since 07/13/2024, new left subclavian pacemaker with leads projecting over the RA and RV. Interval TAVR. Cardiac silhouette size upper limits of normal. Aortic calcifications. Surgical clips RUQ. Chest otherwise negative. Narrative 08/04/2024 8:56 AM GAS STATION CASHIER EXAM: DX CHEST AP OR PA AND [...] * ECG 12 Lead (08/04/2024 6:58 AM GAS STATION CASHIER) Only the most recent of4 resultswithin the time period is included. Ventricular Rate ECG/Min 60 BPM MUSE AK Interval 230 ms MUSE QRSD Interval 144 ms MUSE QT Interval 456 ms MUSE QTC Interval 456 ms MUSE P [place] 36 degrees MUSE R [place] -82 degrees MUSE T Wave [place] 15 degrees MUSE 08/04/2024 6:58 AM GAS STATION CASHIER 08/04/2024 7:07 AM GAS STATION CASHIER Impressions MUSE - 08/04/2024 7:07 AM GAS STATION CASHIER Atrial-paced rhythm Right bundle branch block with [...] no longer present Reviewed by SKYE Agee Cornelia Mario APRNNArnaldo., M.S.N. ECG ORDERAB LES Final Result Performing Organization Address [facility] de Phone Number MUSE NA * ACT (Activated Clotting Time), POCT (08/03/2024 6:04 PM GAS STATION CASHIER) Only the most recent of2 resultswithin the time period is included. Activated Clotting Time, POCT 125 84 - 139 sec 08/03/2024 6:45 PM GAS STATION CASHIER PCSM Blood (Blood, Venous) 08/03/2024 6:04 PM GAS STATION CASHIER 08/03/2024 6:07 PM GAS STATION CASHIER Cornelia Mario APRNNДмитрий, M.S.N. LAB POCT OR DERABLES - DEVICE Final Result Performing Organization Address [facility] de Phone Number POC RST [facility] [address] PCSM [facility] [place] POC [address] [place] [address] * PPM IMPLANT - DUAL CHAMBER, LEFT BUNDLE PACING (08/03/2024 3:42 PM GAS STATION CASHIER) Anatomical Region Laterality Modality X-Ray Angiograph y 08/03/2024 1:18 PM GAS STATION CASHIER Narrative 08/03/2024 4:22 PM GAS STATION CASHIER For the complete report, see the Order-Level Documents. PROCEDURE TYPES 1. PPM IMPLANT - DUAL CHAMBER 2. 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 The sheath was slit with the [employer] adjustable slitter. 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 The sheath was slit with the [employer] adjustableslitter. The peel-away sheath was removed and [...] the complete report, see the Order-Level Documents. Chano Powell M.D., M.S. CV ELECTROPHYSIOLOGY P ROCS Edited Result - Final * CARDIOVASCULAR IMPLANTABLE ELECTRONIC DEVICE - NO CHARGE (08/03/2024 11:52 AM GAS STATION CASHIER) Date Time Interrogation Session [email or web address] SYSTEM Implantable Pulse Generator Upper Marker Hooked LAB SYSTEM Implantable Pulse Generator Type Pacemaker [employer] LAB SYSTEM Implantable Pulse Generator Model L331 [employer] LAB SYSTEM Implantable Pulse Generator Serial Number [id number] [facility] SYSTEM Implantable Pulse Generator Implant Date 20240803 [employer] LAB SYSTEM Battery Status [email or web address] LAB SYSTEM Lead Channel Sensing Intrinsic Amplitude 2.600 [employer] LAB SYSTEM Lead Channel Setting Sensing Sensitivity [...] SYSTEM Lead Channel Setting Sensing Sensitivity 2.50 [facility] LAB SYSTEM Lead Channel Impedance Value 872 [facility] Lead Channel Pacing Threshold Amplitude 0.400 [facility] Lead Channel Pacing Threshold Pulse Width 0.4 [facility] Lead Channel Measurements Date and Time 20240803 [facility] LAB SYSTEM Lead Channel Setting Pacing Amplitude 3.500 [facility] Lead Channel Setting Pacing Pulse Width 0.4 [facility] Jarad Setting Mode (NBG Code) AAIR-VVI [facility] Jarad Setting Lower Rate Limit 60 [facility] Jarad Setting AT Mode Switch Rate 170 [facility] Jarad Setting Maximum Tracking Rate 120 [facility] Jarad Setting Maximum Sensor Rate 120 [facility] Jarad Setting PAV Delay 210 [facility] Jarad Setting TRACIE Delay 200 [facility] Zone Setting Type Category AT/AF [...] 2 [facility]OUND[facility] ION LAB SYSTEM Implantable Lead Upper Marker [employer] [facility] LAB SYSTEM Implantable Lead Model 7842-59 [facility] SYSTEM Implantable Lead Location Right Ventricle [facility] Implantable Lead Connection Status Connected [facility] SYSTEM Implantable Lead Serial Number [id number] [facility] Implantable Lead Implant Date 20240731 [facility] Implantable Lead Special Function Lead length: 59.00 cm [facility] Implantable Lead Upper Marker [employer] [facility] Implantable Lead Model 7841-52 [facility] Implantable Lead Location Right Atrium [facility] Implantable Lead Connection Status Connected [facility] Implantable Lead Serial Number [id number] [facility] Implantable Lead Implant Date 20240731 [facility] Implantable Lead Special Function Lead length: 52.00 cm [facility] SYSTEM Anatomical Region Laterality Modality Other 08/03/2024 3:56 PM GAS STATION CASHIER Impressions 08/03/2024 3:56 PM GAS STATION CASHIER Encounter Impression: Title: New Device Implanted * New Device Implant Date: 08/03/2024 * Device implanted by Dr. Powell at [facility] * Programmed parameters were reviewed * Underlying [...] threshold data was reviewed. Narrative Procedure Note Abiodun Akers M.D. - 08/08/2024 IMPRESSION: Encounter Impression: Title: New Device Implanted * New Device Implant Date: 08/03/2024 * Device implanted by Dr. Powell at [facility] * Programmed parameters were reviewed * Underlying [...] INSERTION, LEFT HEART CATHETERIZATION (08/03/2024 9:51 AM GAS STATION CASHIER) Anatomical Region Laterality Modality X-Ray Angiograph y 08/03/2024 8:59 AM GAS STATION CASHIER Narrative 08/04/2024 10:06 AM GAS STATION CASHIER For the complete report, see the Order-Level [...] artery, and left femoral vein, and 6 [place] sheaths were inserted. The right femoral artery access was pre-closed using two suture-based vascular closure devices and upsized to an 8 [place] sheath. Therapeutic heparin was administered. A temporary [...] thoracic aorta, we then exchanged the 8 [place] sheath for the 14 [place] expandable Stewart sheath. An AL1 was advanced with a J wire to the level of the aortic valve and a straight wire was used to cross into the left ventricle. A 6 [place] pigtail catheter was used to measure an [...] femoral artery, and left femoralvein, and 6 Kittitian sheaths were inserted. The right femoral artery accesswas pre-closed using two suture-based vascular closure devices and upsizedto an 8 Kittitian sheath. Therapeutic heparin was administered. A temporary [...] thoracic aorta, we then exchanged the 8 Kittitian sheathfor the 14 Kittitian expandable Stewart sheath. An AL1 was advanced with a Jwire to the level of the aortic valve and a straight wire was used tocross into the left ventricle. A 6 [place] pigtail catheter was used tomeasure an LVEDP. [...] [facility] demonstrating a recurrent radial artery. The radial [...] COLOR AND LIMITED DOPPLER (08/03/2024 9:50 AM GAS STATION CASHIER) Pathologist [facility] Ejection Fraction 55 MC CV EIMS Left [...] Region Laterality Modality Other 08/03/2024 7:33 AM GAS STATION CASHIER Impressions 08/03/2024 10:00 AM GAS STATION CASHIER Echo performed in the Cardiac Cath Laboratory. [...] the Order-Level Documents. Narrative 08/03/2024 10:00 AM GAS STATION CASHIER For the complete report, see the Order-Level [...] Jones M.D., Ph.D. CV ECHO PROCEDURES Mini rich Result * CT Cardiac Angiogram Structural Heart with Coronary Arteries with IV Contrast (07/13/2024 1:36 PM GAS STATION CASHIER) Anatomical Region Laterality Modality Cardiac, Cardiovascular RST LOS, Thoracic ARZ LOS, Cardiovascular FLA LOS N/A Computed Tomography, Compute d Tomography Impressions 07/13/2024 3:16 PM GAS STATION CASHIER 1. Tricuspid aortic valve with calcific aortic [...] coronary FFRct analysis Narrative 07/13/2024 3:16 PM GAS STATION CASHIER EXAM: CT CARDIAC ANGIO STRUCTURAL HEART W [...] Plane N, R, L = 8 degrees BULGARIAN ; 5 degrees BUSINESS UNIT MANAGER * Craniocaudal tilt at 0 degrees BULGARIAN = 7 degrees CAU * Craniocaudal tilt at 10 degrees BULGARIAN = 7 degrees BUSINESS UNIT MANAGER * Craniocaudal tilt at 10 degrees POLLACK [...] Plane N, R, L = 8 degrees BULGARIAN ; 5 degrees BUSINESS UNIT MANAGER * Craniocaudal tilt at 0 degrees BULGARIAN = 7 degrees CAU * Craniocaudal tilt at 10 degrees BULGARIAN = 7 degrees BUSINESS UNIT MANAGER * Craniocaudal tilt at 10 degrees POLLACK [...] IMG CT PROCEDUR ES Final Result * CT Abdomen Pelvis Angiogram with IV Contrast (07/13/2024 1:36 PM GAS STATION CASHIER) Anatomical Region Laterality Modality Abdomen, Pelvis, Cardiovascu lar RST LOS, Abdominal ARZ LOS, Vascular Interventional ARZ LOS, Abdominal FLA LOS, Vascular Interventional FLA LOS, Procedural, Vascular Interventional NWWI LOS N/A Computed Tomography, Compute d Tomography 07/13/2024 12:5 5 PM GAS STATION CASHIER Impressions 07/13/2024 2:16 PM GAS STATION CASHIER 1. Moderate peripheral arterial disease. No flow-limiting lesions. Noncalcified nodular plaques protrude into lumen of distal infrarenal aorta and right common iliac artery. Please see verified arterial measurements in QREADS. This examination was performed in conjunction with a CT of the Chest, which will be reported separately. Narrative 07/13/2024 2:16 PM GAS STATION CASHIER REVISED REPORT: EXAM: CT ABDOMEN PELVIS ANGIOGRAM [...] be reported separately. us Danyell Walsh, Ph.D. [facility] [place] PROCEDUR ES Edited Result - Final * CT Chest Angiogram with IV Contrast (07/13/2024 1:36 PM GAS STATION CASHIER) Anatomical Region Laterality Modality Chest, Cardiovascular RST LO S, Thoracic ARZ LOS, Thoracic FLA LOS, Vascular Interventional ARZ LOS, Procedural, Vascular Interventional NWWI LOS N/A Computed Tomography, Computed Tomography Impressions 07/13/2024 3:16 PM GAS STATION CASHIER 1. Tricuspid aortic valve with calcific aortic [...] coronary FFRct analysis Narrative 07/13/2024 3:16 PM GAS STATION CASHIER EXAM: CT CARDIAC ANGIO STRUCTURAL HEART W [...] Plane N, R, L = 8 degrees BULGARIAN ; 5 degrees BUSINESS UNIT MANAGER * Craniocaudal tilt at 0 degrees BULGARIAN = 7 degrees CAU * Craniocaudal tilt at 10 degrees BULGARIAN = 7 degrees BUSINESS UNIT MANAGER * Craniocaudal tilt at 10 degrees POLLACK [...] Plane N, R, L = 8 degrees BULGARIAN ; 5 degrees BUSINESS UNIT MANAGER * Craniocaudal tilt at 0 degrees BULGARIAN = 7 degrees CAU * Craniocaudal tilt at 10 degrees BULGARIAN = 7 degrees BUSINESS UNIT MANAGER * Craniocaudal tilt at 10 degrees POLLACK [...] sentfor coronary FFRct analysis Danyell Walsh, Ph.D. [facility] [place] PROCEDUR ES Final Result * (ABNORMAL) Creatinine, POCT (07/13/2024 12:01 PM GAS STATION CASHIER) Only the most recent of2 resultswithin the time period is included. Pathologist [facility] Estimated GFR (eGFR), POCT 32(L) >=60 mL/min/BSA 07/13/2024 12:06 PM GAS STATION CASHIER PCMO Comment: Estimated GFR calculated using the 2020 CKD_EPI creatinine equation. Blood 07/13/2024 12:0 1 PM GAS STATION CASHIER 07/13/2024 12:05 PM GAS STATION CASHIER us Unknown Provider LAB POCT ORDERABLES - DEVICE Fi nal Result Performing Organization Address [facility]/ZIP Co de Phone Number [facility] [address] PCMO [facility] [address] [place] [address] * (ABNORMAL) NT-Pro B-Type Natriuretic Peptide (BNP) (07/13/2024 10:51 AM GAS STATION CASHIER) [facility] NT-Pro BNP 1121(H) <=540 pg/mL 07/13/2024 12:22 PM GAS STATION CASHIER DTL Comment: NT-proBNP values less than 300 [...] failure. Blood (Blood, Venous) 07/13/2024 10:51 AM GAS STATION CASHIER 07/13/2024 11:29 AM GAS STATION CASHIER Danyell Walsh, Ph.D. LAB BLOOD ADD-O N Final Result Performing Organization Address City/[facility]/ZIP Co de Phone Number [facility] [address] [place] [address], [facility] DTL [facility] [address] [place] [address] * Prothrombin Time (PT) (07/13/2024 10:51 AM GAS STATION CASHIER) Pathologist [facility] Prothrombin Time, P 11.3 9.4 - 12.5 sec 07/13/2024 11:33 AM GAS STATION CASHIER DTL INR 1.0 0.9 - 1.1 07/13/2024 11:33 AM GAS STATION CASHIER DTL Comment: ----ADDITIONAL INFORMATION---- Standard intensity warfarin therapeutic range: 2.0 to 3.0 High intensity warfarin therapeutic range: 2.5 to 3.5 Blood (Blood, Venous) 07/13/2024 10:51 AM GAS STATION CASHIER 07/13/2024 11:13 AM GAS STATION CASHIER Danyell GuilloryBDimpleSDimple, Ph.D. LAB BLOOD ADD-[place] [address], [facility] DTFormerly [facility] [address] [place] [address] * (ABNORMAL) CBC with Differential, Blood (07/13/2024 10:51 AM GAS STATION CASHIER) Pathologist [facility] Hemoglobin 11.8(L) 13.2 - 16.6 g/dL 07/13/2024 12:03 PM GAS STATION CASHIER DTL Hematocrit 34.8(L) 38.3 - 48.6 % 07/13/2024 12:03 PM GAS STATION CASHIER DTL Erythrocytes 3.65(L) 4.35 - 5.65 x10(12)/L 07/13/2024 12:03 PM GAS STATION CASHIER DTL MCV 95.3 78.2 - 97.9 fL 07/13/2024 12:03 PM GAS STATION CASHIER DTL RBC Distrib Width 12.3 11.8 - 14.5 % 07/13/2024 12:03 PM GAS STATION CASHIER DTL Platelet Count 231 135 - 317 x10(9)/L 07/13/2024 12:03 PM GAS STATION CASHIER DTL Leukocytes 6.4 3.4 - 9.6 x10(9)/L 07/13/2024 12:03 PM GAS STATION CASHIER DTL Neutrophils 3.78 1.56 - 6.45 x10(9)/L 07/13/2024 12:03 PM GAS STATION CASHIER DHPM Lymphocytes 1.82 0.95 - 3.07 x10(9)/L 07/13/2024 12:03 PM GAS STATION CASHIER DTL Monocytes 0.58 0.26 - 0.81 x10(9)/L 07/13/2024 12:03 PM GAS STATION CASHIER DTL Eosinophils 0.10 0.03 - 0.48 x10(9)/L 07/13/2024 12:03 PM GAS STATION CASHIER DTL Basophils 0.15(H) 0.01 - 0.08 x10(9)/L 07/13/2024 12:03 PM GAS STATION CASHIER DTL Blood (Blood, Venous) 07/13/2024 10:51 AM GAS STATION CASHIER 07/13/2024 11:13 AM GAS STATION CASHIER Danyell BarSDimple, Ph.D. LAB BLOOD ADD-O N Final Result Performing Organization Address City/[facility]/ZIP Co de Phone Number [facility] [address] [place] [address], [facility] DTL [facility] [address] [place] [address] DHPM [facility] [address] [place] [address] * Type and Screen (with Reflex Antibody ID) (07/13/2024 10:51 AM GAS STATION CASHIER) Pathologist [facility] ABORh A Pos Not applicable 07/13/2024 4:01 PM GAS STATION CASHIER ETRM Antibody Screen Negative Negative 07/13/2024 4:11 PM GAS STATION CASHIER ETRM Type & Screen Expiration 09/10/2024 23:59 07/13/2024 4:01 PM GAS STATION CASHIER ETRM Testing Location [place] DEFAULT 07/13/2024 11:17 AM GAS STATION CASHIER ETRM Blood (Blood, Venous) 07/13/2024 10:51 AM GAS STATION CASHIER 07/13/2024 11:17 AM GAS STATION CASHIER us Danyell GuilloryBDimpleSDimple, Ph.D. LAB BLOOD BANK TEST ORDERABLES Final Result Performing Organization Address City/[facility]/ZIP Co de Phone Number [facility] [address] [place] [address], [facility] ETRM [facility] [address] [place] [address] * (ABNORMAL) Comprehensive Metabolic Panel (07/13/2024 10:51 AM GAS STATION CASHIER) [facility] Potassium, S 3.9 3.6 - 5.2 mmol/L 07/13/2024 12:22 PM GAS STATION CASHIER DTL Sodium, S 139 135 - 145 mmol/L 07/13/2024 12:22 PM GAS STATION CASHIER DTL Chloride, S 105 98 - 107 mmol/L 07/13/2024 12:22 PM GAS STATION CASHIER DTL Bicarbonate, S 22 22 - 29 mmol/L 07/13/2024 12:22 PM GAS STATION CASHIER DTL Anion Gap 12 7 - 15 07/13/2024 12:22 PM GAS STATION CASHIER DTL BUN (Blood Urea Nitrogen), S 27(H) 8 - 24 mg/dL 07/13/2024 12:22 PM GAS STATION CASHIER DTL Creatinine 1.94(H) 0.74 - 1.35 mg/dL 07/13/2024 12:22 PM GAS STATION CASHIER DTL Estimated GFR (eGFR) 35(L) >=60 mL/min/BS A 07/13/2024 12:22 PM GAS STATION CASHIER DTL Comment: Estimated GFR calculated using the 2020 CKD_EPI creatinine equation. Calcium, Total, S 9.1 8.8 - 10.2 mg/dL 07/13/2024 12:22 PM GAS STATION CASHIER DTL Glucose, S 118 70 - 140 mg/dL 07/13/2024 12:22 PM GAS STATION CASHIER DTL Protein, Total, S 6.5 6.3 - 7.9 g/dL 07/13/2024 12:22 PM GAS STATION CASHIER DTL Albumin, S 4.1 3.5 - 5.0 g/dL 07/13/2024 12:22 PM GAS STATION CASHIER DTL Aspartate Aminotransferase (AST), S 20 8 - 48 U/L 07/13/2024 12:22 PM GAS STATION CASHIER DTL Alkaline Phosphatase, S 54 40 - 129 U/L 07/13/2024 12:22 PM GAS STATION CASHIER DTL Alanine Aminotransferase (ALT), S 12 7 - 55 U/L 07/13/2024 12:22 PM GAS STATION CASHIER DTL Bilirubin, Total, S 0.3 0.0 - 1.2 mg/dL 07/13/2024 12:22 PM GAS STATION CASHIER DTL Blood (Blood, Venous) 07/13/2024 10:51 AM GAS STATION CASHIER 07/13/2024 11:29 AM GAS STATION CASHIER Danyell Walsh, Ph.D. LAB BLOOD ADD-O N Final Result [facility] [address] [place] [address], [facility] [address] [place] [address] * (ABNORMAL) Lipid Panel (07/13/2024 10:46 AM GAS STATION CASHIER) Triglycerides 162(H) mg/dL 07/13/2024 2:15 PM GAS STATION CASHIER DTL Comment: ----REFERENCE VALUE---- Normal: <150 mg/dL Borderline High: 150-199 mg/dL High: 200-499 mg/dL Very High: > or =500 mg/dL Cholesterol, Total 125 mg/dL 2023 2:15 PM GAS STATION CASHIER DTL Comment: ----REFERENCE VALUE---- Desirable: < 200 mg/dL Borderline High: 200 - 239 mg/dL High: > or = 240 mg/dL Cholesterol, LDL, Calculated 60 mg/dL 07/13/2024 2:15 PM GAS STATION CASHIER DTL Comment: ----REFERENCE VALUE---- Desirable: <100 mg/dL Above Desirable: 100-129 mg/dL Borderline High: 130-159 mg/dL High: 160-189 mg/dL Very High: >=190 mg/dL ----ADDITIONAL INFORMATION---- LDL cholesterol calculated using the Lim/NIH equation. Cholesterol, HDL, S 37(L) >=40 mg/dL 07/13/2024 2:15 PM GAS STATION CASHIER DTL Cholesterol, Non-HDL, Calculated 88 mg/dL 07/13/2024 2:15 PM GAS STATION CASHIER DTL Comment: ----REFERENCE VALUE---- Desirable: <130 mg/dL Above Desirable: 130-159 mg/dL Borderline High: 160-189 mg/dL High: 190-219 mg/dL Very High: > or =220 mg/dL Fasting (8 HR or more) Unknown 07/13/2024 1:22 PM GAS STATION CASHIER DTL Blood 07/13/2024 10:4 6 AM GAS STATION CASHIER 07/13/2024 1:22 PM GAS STATION CASHIER Danyell BarSDimple, Ph.D. LAB BLOOD ADD-O N Final Result Performing Organization Address City/[facility]/ZIP Co de Phone Number [facility] [address] [place] [address] * Thyroid Function [place] (07/13/2024 10:46 AM GAS STATION CASHIER) [facility] TSH, Sensitive 2.7 0.3 - 4.2 mIU/L 07/13/2024 2:15 PM GAS STATION CASHIER DT Blood (Blood, Venous) 07/13/2024 10:46 AM GAS STATION CASHIER 07/13/2024 1:22 PM GAS STATION CASHIER Danyell GuilloryBDimpleSDimple, Ph.D. LAB BLOOD ADD-O N Final Result Performing Organization Address [facility] de Phone Number [facility] [address] [place] [address] * Hemoglobin A1c (07/13/2024 10:46 AM GAS STATION CASHIER) [facility] Hemoglobin A1c, B 5.5 4.0 - 5.6 % 07/13/2024 4:30 PM GAS STATION CASHIER DTL Blood (Blood, Venous) 07/13/2024 10:46 AM GAS STATION CASHIER 07/13/2024 1:12 PM GAS STATION CASHIER Danyell GuilloryB.SDimple, Ph.D. LAB BLOOD ADD-O N Final Result Performing Organization Address City/[facility]/ZIP Co de Phone Number [facility] [address] [facility] [address] [place] [address] from Last 3 Months Insurance MEDICARE [facility] [address] Advance Directives For more information, please contact: [phone] * Full Code (Latest Code Status on File) Date Activated Date Inactivated Comments 08/03/2024 1:21 PM 08/04/2024 2:16 PM Question Answer Comments Full Code: Discussed Care Teams Or Rn Relationship Specialty Start Date End Date Elsewhere, Pcp PCP - General Internal Medicine 08/03/24
--- OUTSIDE RECORDS SUMMARY | 2024-08-08 15:12 | XMS_ITS | Encounter Summary ---
Author Organization [facility] Address [address] [place] [address] Care Team Providers Care Dinkey Engine Firer Name Role Phone Elsewhere, Pcp Primary Care Provider Unavailabl e Reason for Referral * Outpatient (Routine) - Authorized Specialty Diagnoses / Procedures Referred By Contac t Referred To Contact Diagnoses Prosthesis Aortic Valve Nelson Jones M.D., Ph.D. [address] [place] [address] Phone: tel: fax: Referral ID Status Reason Start Date Expiration Date Visits Requested Visits Authorized [id number] Authorized Continuity of Care 08/04/2024 02/03/2026 1 1 ATOR MECHANIC Encounter Details Date Type Department Care Team (Latest Contact Info) Description 08/03/2024 5:48 AM ELEVATOR MECHANIC - 08/04/2024 12:16 PM ELEVATOR MECHANIC Hospital Encounter [facility], [facility], Sixth Floor [address] [place] [address] Nelson Jones M.D., Ph.D. [address] [place] [phone] Prosthesis Aortic Valve (Primary Dx); Stenosis Aortic Valve Acquired Discharge Disposition: Home or Self Care Social History Tobacco Use Types Packs/Day Years Used Date Smoking Tobacco: Never Smokeless Tobacco: Never [facility] Utilities Answer Date Recorded In the past 12 months has e electric, gas, oil, or water company threatened to [...] money to buy more. Never true 08/03/20 Within the past 12 months, t he [...] your living situation today? I have a [facility] place to live 08/03/2024 Sex and Gender Information Value Date Recorded Sex Assigned at Male 07/11/2024 10:53 AM ELEVATOR MECHANIC Legal Sex Male 9:21 AM ELEVATOR MECHANIC Gender Identity Male 07/11/2024 10:53 AM ELEVATOR MECHANIC Sexual Orientation Straight 07/11/2024 10 :53 AM ELEVATOR MECHANIC documented as of this encounter Last Filed Vital Signs Vital Sign Reading Time Taken Comments Blood Pressure 110/65 08/04/2024 11:15 AM ELEVATOR MECHANIC Pulse 72 08/04/2024 11:15 AM ELEVATOR MECHANIC Temperature 37.3 C (99.1 F) 08/04/2024 11:18 AM ELEVATOR MECHANIC Respiratory Rate 18 08/04/2024 11:15 AM ELEVATOR MECHANIC Oxygen Saturation 95% 08/04/2024 11:15 AM ELEVATOR MECHANIC Inhaled Oxygen Concentration - - Weight 93.9 kg (207 lb 0.2 oz) 08/04/2024 3:04 A M ELEVATOR MECHANIC Height 170.5 cm (5' 7.13) 08/03/2024 6:10 AM CS T Body Mass Index 32.3 08/03/2024 6:10 AM ELEVATOR MECHANIC documented in this encounter Discharge Summaries * Rocio Bailey APRN, C.N.P., D.N.P., M.S.N. - 08/04/2024 8:49 AM ELEVATOR MECHANIC [facility] DISCHAR[facility] SUMMARY DATE OF ADMISSION: 08/03/2024 DATE OF DISCHARGE: 08/04/2024 Discharge Provider: Nelson Jones M.D., Ph.D. Discharge Provider Team: RST CVD Interventional/Cath PRINCIPAL DIAGNOSIS: Stenosis Aortic Valve Acquired DISMISSAL DIAGNOSES: #1 Stenosis Aortic Valve Acquired s/p SHERIE 08/02/2024 #2 Chronic Diastolic (Congestive) Heart Failure (HCC) in the setting of valvular disease #3 Pacemaker Cardiac Status Post 08/03/2024 #4 Chronic Kidney Disease (CKD), Stage 3a Glomerular Filtration Rate (GFR) 45 To 59 (HCC) #5 Hyperlipidemia #6 Hypertensive Chronic Kidney Disease With Stage 1 Through Stage 4 Chronic Kidney Disease, Or Unspecified Chronic Kidney Disease #7 Obstructive Sleep Apnea Adult #8 Obesity Body Mass Index 30-39.9 Adult #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 - Adjust antihypertensive agents as needed. - Check CBC & electrolytes including creatinine. - Cardiac Rehabilitation referral placed and encouraged. - SBE prophylaxis lifelong. - ASA 81 mg daily as monotherapy. BACTERIAL ENDOCARDITIS PROPHYLAXIS *The following recommendations should be observed for [place] after your procedure. 1. Take antibiotic(s) prior to interventional procedures or surgeries. 2. Observe good oral hygiene daily, as advised by your dentist. Ensure regular professional dental care. 3. Keep cuts and skin lesions clean. 4. Infections should be treated promptly. Failure to follow these recommendations will expose you to risks of developing bacterial endocarditis, a serious heart valve infection. FOLLOW-UP APPOINTMENTS: Scheduled Appointments 09/20/2024 9:00 AM RST [facility] INTAKE VISIT Admitting/Central Scheduling 09/21/2024 11:00 AM DX CHANTE [address] Radiology 09/21/2024 11:20 AM LAB BLOOD [facility] Laboratory Medicine 09/21/2024 11:40 AM ECG 01 [facility] CVD Cardiovascular Disease 09/21/2024 12:15 PM ECHO (9) [facility] [place] Cardiovascular Disease 09/22/2024 9:30 AM Edna Sandra, LILIBETH, C.N.P., M.S.N. Cardiovascular Disease For appointment details refer to your Patient Appointment Guide. HOSPITAL COURSE: Admission Weight: 93.7 kg Dismissal Weight: 93.9 kg BMI: Body mass index is 32.3 kg/m??. Mr. Gale underwent successful transfemoral insertion of a 26 mm Zohra S3 in the aortic position with Dr. Jones and Dr. Barboza on 08/03/2024 in the setting of symptomatic severe calcific aortic valve stenosis. He has medical comorbidities including, but not limited to, severe calcific aortic valve stenosis with a mean AV gradient 74 mmHg, bifascicular block, elevated BMI of 32, systemic hypertension, chronic kidney disease stage IIIA due to hypertensive nephrosclerosis, osteoarthritis, chronic diarrhea following cholecystectomy, depression, obstructive sleep apnea with CPAP intolerance. Known intra procedural complications. At baseline his ECG displayed high-risk features (AV block, bifascicular block). Postprocedure ECG showed continued sinus rhythm first-degree AV block, right bundle-branch block, left anterior fascicular block, bifascicular block, with a prolonging OK interval. Electrophysiology was consulted ultimately recommended implantation of left- sided dual-chamber permanent pacemaker which he underwent without complications on 08/03/2024. Next day follow-up chest x-ray confirmed lead placement and ruled out pneumothorax. Device interrogation confirmed device functioning. Low-dose aspirin as monotherapy recommended indefinitely. SBE prophylaxis recommended lifelong. - Anticoagulation / antiplatelet: Low-dose aspirin - Conduction concerns: Right bundle-branch block, left anterior fascicular block, first-degree AV block, leading to pacemaker implant - NYHA Class prior to procedure: 2 - Acute Heart failure on admission: No Worsening subjective symptoms over the last 4 weeks: Fatigue - HF Medication changes in the past 4 weeks due to symptoms? No - Received IV Lasix in the last 4 weeks? No - Hospitalized in the last 4 weeks for HF management? No - Neurological complications identified: None identified Prior to discharge, he was voiding, ambulating, and tolerating oral intake without difficulty. He denies any new or worsening cardiovascular symptoms. Follow-up instructions were discussed including restrictions. He was instructed on when to seek emergency medical attention should he develop any new or worsening cardiovascular symptoms. He was in agreement to the above plan and had all questions and concerns addressed prior to discharge. He was discharged home to self-care. RESTRICTIONS: You were discharged from the [facility] CVD Interventional/Cath Service. Please identify this service name if you call with questions after hospitalization. Permanent Pacemaker Implant Instructions Remember Your Arm Restrictions ? No vigorous, upper body activity for 4 weeks. ? No raising affected arm above shoulder level for 4 weeks. ? 5-pound weight limit with affected arm (this includes pushing, pulling, lifting) for 4 weeks. ? No driving for 10 days. ? Wear sling for 1 week, or as directed. LIMITED PHYSICAL EXAMINATION: General: Calm, pleasant, in no acute distress. Access site: Clean, dry, intact, free of hematoma. TEST RESULTS PENDING AT DISCHARGE: Pending Labs None DISCHARGE DISPOSITION: Home or Self Care [1] CONDITION ON DISCHARGE: Stable. DIET AT DISCHARGE: LOW-FAT, LOW-CHOLESTEROL, LOW-SODIUM DIET. PRIMARY PROVIDER: Patient Care Team: Anthony Benjamin M.D. as External Primary Care Physician (Family Medicine) Primary Care Providers: Elsewhere, Pcp (General) No address on file Primary Care Provider Phone Number: None Primary Care Provider Fax Number: [phone] Electronically signed by: Rocio Bailey APRN, Chano.N.P., Noe.N.P., M.S.N. 08/04/24 8:49 AM ELEVATOR MECHANIC [facility] CVD Interventional/Cath ATOR MECHANIC documented in this encounter Discharge Instructions * Discharge Instructions* Madeline Wills R.N. - 08/03/2024 7:33 AM ELEVATOR MECHANIC You were discharged from the [facility] CVD Interventional/Cath Service. Please identify this service nameif you call with questions after hospitalization. Permanent Pacemaker Implant Instructions Remember Your Arm Restrictions No vigorous, upper body activity for 4 weeks. No raising affected arm above shoulder level for 4 weeks. 5-pound weight limit with affected arm (this includes pushing, pulling, lifting) for 4 weeks. No driving for 10 days. Wear sling for 1 week, or as directed. Wound Care: Watch incision daily for signs and symptoms of infection and/or bleeding: Redness, swelling, drainage, oral temperature greater than 100.4?? F. *If any of these are present, please contact us or your local doctor as soon as possible. Types of Dressings Over Device Incision: MEPILEX: Remove dressing on or before 08/10/24. Check dressing daily for intact seal. If dressing is no longer intact, may need to remove sooner. Ok to shower day after implant with dressing on. Oncedressing is removed, leave incision open to air. Pat incision dry after showering. Do not apply any lotions or creams directly to incision. Do not submerge incision in water until completely healed (usually 3-4 weeks). Pain: You may use [id number] Extra Strength Tylenol (acetaminophen) 500 mg tablets, one to two tablets by mouth every six hours as needed for incisional discomfort. DO NOT EXCEED 4 grams of acetaminophen in any 24-hour period, or per your providers recommendations. Follow-Up: In clinic appointments will be scheduled for you for 3-months from implant. Routine remote transmitter follow-up dates will be scheduled every 3 months after this appointment, with in clinic device check per your clinic's request. If you plan to have your device followed locally, YOU are responsible for scheduling an appointment with a device specialist in 3 months. This appointment is very important as adjustments are madewhich will affect the device battery. If you wish to have your local clinic follow your remote transmitter as well, please contact us to request this transfer at or [phone]. Remote Transmitter: You will be provided with a remote home transmitter or phone chandana to assist you in ongoing follow upof your device. The transmitter or phone chandana will send information to your designated clinic on a quarterly basis, and in between those times, ONLY if the implanted device detects something it wants your clinic to be aware of. This transmitter or chandana is NOT a lifesaving device, nor will it contact anyone in an emergency. If you are experiencing any abnormal symptoms, please DO NOT rely on this transmitter. Call your local physician, or if an emergency, report to the closest emergency room, or dial 911. It is recommended the transmitter remain plugged in at all times. The phone chandana should always remain open / running in the background with your phone's Bluetooth feature always on. When you arrive home, please set up your transmitter as instructed. You may verify this initial connection by calling the [facility] at or [phone]; Thursday - Thursday, 8:00 AM - 4:30 PM ELEVATOR MECHANIC. Please contact your device company with concerns or issues regarding your home transmitter. [employer] [phone] ALWAYS call 911 in the event of an emergency. ATOR MECHANIC ATOR MECHANIC ATOR MECHANIC ATOR MECHANIC * Attachments The following attachments cannot be sent through Care Everywhere. * Amoxicillin (By mouth) (Danish) * Aspirin (By mouth) (Danish) documented in this encounter Medications at Time of Discharge amoxicillin (AmoxiL) 500 mg capsule Take 4 capsules (2,000 mg total) by mouth as directed. Take 4 caps (2000 mg) 1 hour prior to dental procedure. 12 capsule 2 08/04/2024 aspirin 81 mg chewable tablet Chew 1 tablet (81 mg total) daily. 08/04/2024 chlorthalidone (Hygroton) 25 mg tablet Take 25 mg by mouth daily. Cholestyramine Light 4 gram powder TAKE 4G BY MOUTH TWICE DAILY 04/04/2024 lisinopriL 20 mg tablet Take 1 tablet by mouth daily. 10/10/2015 omeprazole (PriLOSEC) [address] capsule Take 1 capsule by mouth daily. 10/10/2015 documented as of this encounter Progress Notes * Lnida Lee M.D., M.P.H. - 08/04/2024 11:11 AM CST Images from the original note were not included. HEART RHYTHM CONSULT SERVICE - PROGRESS NOTE Location: [address] [id number] [facility] CVD Interventional/Cath Hospital Day: 1 SUBJECTIVE He is doing well today after his procedures and pacemaker implantation. He does have some soreness at the site but otherwise denies chest pain or dyspnea or palpitations. OBJECTIVE VITAL SIGNS Temperature: [36.4 ??C-36.8 ??C] 36.6 ??C Heart Rate: [54-90] 90 Resp Rate: [8-25] 16 Blood Pressure: (109-172)/(55-101) 137/79 SpO2: [92 %-100 %] 95 % Weight: [93.9 kg] 93.9 kg BMI (Calculated): [32.3 kg/m??] 32.3 kg/m?? Pulse Rate: [44-77] 77 PHYSICAL EXAMINATION Vitals reviewed. Constitutional General: He is not in acute distress. Cardiovascular Rate and Rhythm: Normal rate and regular rhythm. Heart sounds: No murmur heard. Pulmonary Effort: Pulmonary effort is normal. No respiratory distress. Breath sounds: Normal breath sounds. Chest Comments: Device pocket clean, dry, without bleeding or hematoma. Slight tenderness to touch. Device edges appropriately appreciated. Musculoskeletal Cervical back: Neck supple. No rigidity. Right lower leg: No edema. Left lower leg: No edema. Skin General: Skin is warm and dry. Neurological Mental Status: He is alert and oriented to person, place, and time. DIAGNOSTICS Recent Results (from the past 24 hours) ACT (Activated Clotting Time), POCT Collection Time: 08/03/24 6:04 PM Result Value Activated Clotting Time, POCT 125 Basic Metabolic Panel Collection Time: 08/04/24 9:22 AM Result Value Potassium, S 4.3 Sodium, S 134 (L) Chloride, S 104 Bicarbonate, S 20 (L) Anion Gap 10 BUN (Blood Urea Nitrogen), S 27 (H) Creatinine 1.92 (H) Estimated GFR (eGFR) 35 (L) Calcium, Total, S 8.8 Glucose, S 104 CBC without Differential Collection Time: 08/04/24 9:22 AM Result Value Hemoglobin 11.9 (L) Hematocrit 35.2 (L) Erythrocytes 3.66 (L) MCV 96.2 RBC Distrib Width 12.0 Platelet Count 139 Leukocytes 8.9 CXR 08/04/24 ECG 08/04/24 ASSESSMENT / PLAN Mr. Gale is a 79 y.o. male with medical history significant for severe aortic stenosis who presented and is now s/p implantation of catheter-delivered prosthetic aortic heart valve (26 mm Stewart ZOHRA S3 transcatheter heart valve) on 08/03/24. 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 We thus decided to proceed with pacemaker implantation given the baseline trifascicular block and worsened OK prolongation after TAVR. We underwent successful implantation of a left sided dual chamber pacemaker with left bundle pacingon 08/03/24. CXR shows appropriate lead positioning. ECG shows appropriate atrial sensing and his intrinsic right bundle branch block morphology. Device interrogation shows normal device function. Hereceived further device education this morning with his family present. We also emphasized the importance of infection prevention, appropriate follow up, and avoiding heavy lifting for the first few weeks. This case was discussed with customer care voice consultant Dr. Lacy. [place] [phone] with any questions or concerns. We will sign off at this time. Please ensure he has cardiology follow up to ensure they review remote device interrogations. Alexus Lee M.D., M.P.H. PGY5 Personal Insurance Advisor 08/04/24 ATOR MECHANIC documented in this encounter H&P Notes * Enrico Knight, LILIBETH, C.N.P., M.S.N. - 08/03/2024 9:19 AM CST INTERVENTIONAL CARDIOLOGY INPATIENT ADMISSION NOTE SUBJECTIVE CHIEF COMPLAINT / REASON FOR VISIT Aortic valve stenosis status post SHERIE Collaborating physician: Dr. Jones Admitting service: Interventional Cardiology HISTORY OF PRESENT ILLNESS Mr. Gale is a 79 y.o. male who presented to the Cardiac Catheterization laboratory for plannedTAVI. He has medical comorbidities including, but not limited to, severe calcific aortic valve stenosis with a mean AV gradient 74 mmHg, bifascicular block, elevated BMI of 32, systemic hypertension,chronic kidney disease stage IIIA due to hypertensive nephrosclerosis, osteoarthritis, chronic diarrhea following cholecystectomy, depression, obstructive sleep apnea with CPAP intolerance. He has noticed worsening overall fatigue and poor stamina and intermittent atypical anterior chest wall pain reproducible with palpation. No significant pedal edema, syncope, orthopnea, or PND. The following portions of the patient's history were reviewed and updated as appropriate: allergies, current medications, family history, medical history, social history, surgical history and problemlist. History reviewed. No pertinent past medical history. History reviewed. No pertinent surgical history. REVIEW OF SYSTEMS A complete 10-point review of systems was completed and negative except for as mentioned in the HPI. No Known Allergies HOME MEDICATIONS Current Outpatient Medications on File Prior to Encounter: Cholestyramine Light 4 gram powder, TAKE 4G BY MOUTH TWICE DAILY, 08/02/2024 lisinopriL 20 mg tablet, Take 1 tablet by mouth daily., 08/02/2024 omeprazole (PriLOSEC) [address] capsule, Take 1 capsule by mouth daily., 08/02/2024 Social History Tobacco Use Smoking status: Never Smokeless tobacco: Never Substance Use Topics Alcohol use: Not on file History reviewed. No pertinent family history. OBJECTIVE VITAL SIGNS Temperature: [36.4 ??C-37.1 ??C] 36.4 ??C Heart Rate: [54-84] 66 Resp Rate: [10-26] 20 Blood Pressure: (94-172)/(42-101) 128/69 SpO2: [90 %-100 %] 98 % Flow Rate (L/min): [2 L/min] 2 L/min Height: [170.5 cm] 170.5 cm Weight: [93.7 kg] 93.7 kg BSA (Calculated - sq m): [2.1 sq meters] 2.1 sq meters BMI (Calculated): [32.2 kg/m??] 32.2 kg/m?? Pulse Rate: [42-67] 53 Body mass index is 32.23 kg/m??. PHYSICAL EXAMINATION General: Calm, pleasant, in no acute distress. Making appropriate eye contact. Heart: S1, S2, without murmur rub or gallop. ENT: JVP does not appear elevated while on flat bedrest. Lungs: Clear to auscultation anteriorly while on bedrest. Skin: Warm and dry. Extremities / access: Right femoral approach dry and intact without bleeding or hematoma, right radial approach TR band in-situ with transient small hematoma with band removal with re-application successful reduction. Left femoral venous approach temporary pacemaker in-situ VVI at 30. Mental: Bright affect with interaction. Neuro: Fully alert and oriented to person, place, time, and situation. Able to move all extremitieson command. No focal neuro deficits appreciated. DIAGNOSTICS ECG: ECG 12 Lead Result Date: 08/03/2024 Sinus bradycardia with 1st degree A-V block Premature atrial complexes Right bundle branch block Left anterior fascicular block Bifascicular block Cannot rule out Inferior infarct Nonspecific ST and T wave abnormality When compared with ECG of 13-Jul-2024 13:11, No significant change was found Reviewed by SKYE Lopez Labs: Recent Results (from the past 24 hours) ACT (Activated Clotting Time), POCT Collection Time: 08/03/24 9:20 AM Result Value Activated Clotting Time, POCT 195 (H) ASSESSMENT / PLAN #1 Severe aortic valve stenosis status post transcatheter aortic valve replacement (type/size 26 mmSapien S3 - 08/03/24) #2 Chronic diastolic heart failure, in the setting of valvular heart disease #3 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 Gale underwent successful transfemoral insertion of a 26 mm Zohra S3 in the aortic position with Dr. Jones and Dr. Barboza in the setting of symptomatic severe calcific aortic valve stenosis.No known intra procedural complications. He is neurologically intact in the PACU postprocedure. Dueto his baseline ECG high-risk features including 1 AVB, RBBB, LAFB, the float in temporary pacemaker was left in postprocedure to obtain ECG and electrophysiology consultation. Electrophysiology has reviewed his ECG and decided to move forward with implant of the left-sided dual-chamber permanent pacemaker system noting further OK prolongation post valve deployment. Protamine was not administered at case close, ACT 195 at 9:20 a.m. with 3000 units of heparin given after ACT obtainment. Will obtain ACT and treat if > 200 in effort to reduce any risk of pocket bleeding. Will obtain chest x-ray tomorrow morning and hold NPO after midnight for device interrogation. Likely dismissal tomorrow unless his clinical course would deteriorate. Plan of care explained in depth with the patient and his family with questions answered to the best of my ability. -- Inpatient admission to interventional unit service -- bedrest per protocol -- NPO after midnight for device interrogation -- chest x-ray ordered for tomorrow morning -- low-dose aspirin monotherapy post SHERIE -- likely dismissal tomorrow after aforementioned testing complete and interpreted Addendum: Left subclavian access site post pacemaker implant dry and intact, distal pulses and sensation intact. - Anticoagulation / antiplatelet: Low-dose aspirin - Conduction concerns: Right bundle-branch block, left anterior fascicular block, first-degree AV block, EP consult = pacemaker implant - NYHA Class prior to procedure: 2 - Acute Heart failure on admission: No Worsening subjective symptoms over the last 4 weeks: Fatigue - HF Medication changes in the past 4 weeks due to symptoms? No - Received IV Lasix in the last 4 weeks? No - Hospitalized in the last 4 weeks for HF management? No - Neurological complications identified: None identified VTE: anti-coagulation held due to procedural access GI: Pantoprazole Code Status: Full Code Disposition: Home - self care PATIENT EDUCATION: Learning needs assessment done. Barriers assessed (cultural, hindu/spiritual, motivational, physical/cognitive, language, emotional). Ready to learn. Patient has no barriers. Explained diagnosis and treatment options. MARGIN CODE Total time: 75 min. Counseling Time: Greater than 50%. Enrico Knight APRN C.N.Marlo, M.S.N. 08/03/24 ATOR MECHANIC documented in this encounter Consult Notes * Rocio Bhakta, CEP - 08/04/2024 10:26 AM CSTAssociated Order(s): IP CONSULT TO CARDIAC REHABILITATION Cardiac Rehabilitation Referral Reason for Visit: Cardiovascular Health Clinic consultation for referral to cardiac rehabilitation. Liaison met with the patient/family to discuss cardiac rehabilitation referral. Patient/family was provided with progressive verbal and printed home-going exercise guidelines. Patient/family understands and agrees with the exercise guidelines. 1. Participation in a Phase II cardiac rehabilitation program is recommended. Patient was informed about what cardiac rehabilitation has to offer and why it is beneficial. The plan of care for the rehabilitation program consists of risk factor modification, monitored and supervised exercise and assistance in the recovery process with ongoing education and support. Patient is interested in attending a cardiac rehabilitation program. 2. Eligibility: Transcatheter aortic valve replacement 3. Exceptions/exclusions: None. 4. Referral: Patient agreed with referral to a cardiac rehabilitation program. Please see dischargeorder and/or letter for program details. 5. Appropriate referral information will be sent to the receiving cardiac rehabilitation program asapplicable. Patient provided verbal authorization to send relevant materials to the cardiac rehab program. Patient referred to: [facility] [address] [place] [id number] Recommend that the patient check with insurance company to verify coverage of the cost of cardiac rehabilitation program visits. ATOR MECHANIC * Linda Lee M.D., M.P.H. - 08/03/2024 11:12 AM CSTAssociated Order(s): IP CONSULT TO CARDIOLOGY Images from the original note were not included. HEART RHYTHM CONSULT SERVICE - CONSULT NOTE Location: [facility] CVD Interventional/Cath Hospital Day: 0 SUBJECTIVE REASON FOR CONSULT Pre and Post TAVR conduction abnormalities HISTORY OF PRESENT ILLNESS Mr. Gale is a 79 y.o. male with medical history significant for severe aortic stenosis who presented and is now s/p implantation of catheter-delivered prosthetic aortic heart valve (26 mm Stewart ZOHRA S3 transcatheter heart valve) on 08/03/24. 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 He has not had any prior syncope events or documented prior arrhythmia. We were initially contacted to discuss with him the risk of needing pacemaker implantation with TAVR given his underlying trifascicular block. He expressed that he had been informed of this risk previously. We discussed the pacemaker implantation procedure with him prior to TAVR and all the risks associated with the procedure. 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 REVIEW OF SYSTEMS 12-point ROS was negative except for HPI OBJECTIVE Vitals: 08/03/24 1100 BP: (!) 132/54 Pulse: (!) 47 Resp: Temp: SpO2: 94% SOCIAL HISTORY Social History Socioeconomic History Marital status: Single Spouse name: Not on file Number of children: Not on file Years of education: Not on file Highest education level: Not on file Occupational History Not on file Tobacco Use Smoking status: Never Smokeless tobacco: Never Vaping Use Vaping status: never used Substance and Sexual Activity Alcohol use: Not on file Drug use: Not on file Sexual activity: Not on file Other Topics Concern Not on file Social History Narrative Not on file Social Drivers of Health Food Insecurity: No Food Insecurity (07/11/2024) Hunger Vital Sign Worried About Running Out of Food in the Last Year: Never true Ran Out of Food in the Last Year: Never true Transportation Needs: No Transportation Needs (07/11/2024) PRAPARE - Transportation Lack of Transportation (Medical): No Lack of Transportation (Non-Medical): No Intimate Partner Violence: Not on file Housing Stability: Low Risk (07/11/2024) Housing Stability Housing: Living Situation: I have a steady place to live FAMILY HISTORY History reviewed. No pertinent family history. MEDICATIONS Current Facility-Administered Medications: acetaminophen tablet 1,000 mg (TylenoL), 1,000 mg, oral, Q6H PRN, Enrico Knight APRN, C.N.P., M.S.N., 1,000 mg at 08/03/24 1019 fentaNYL injection 25 mcg (Sublimaze), 25 mcg, intravenous, Q2 Min PRN, Olu Paniagua M.D., 25 mcg at 08/03/24 0930 fentaNYL injection 25 mcg (Sublimaze), 25 mcg, intravenous, Once PRN, Olu Paniagua M.D. flumazeniL injection 0.2 mg (Romazicon), 0.2 mg, intravenous, Once PRN, Olu Paniagua M.D. midazolam (PF) injection 0.25 mg (Versed), 0.25 mg, intravenous, Q2 Min PRN, Olu Paniagua M.D. midazolam (PF) injection 0.5 mg (Versed), 0.5 mg, intravenous, Once PRN, Olu Paniagua M.D. midazolam (PF) injection 0.5 mg (Versed), 0.5 mg, intravenous, Q2 Min PRN, Olu Paniagua M.D., 0.5 mg at 08/03/24 0911 midazolam (PF) injection 1 mg (Versed), 1 mg, intravenous, Q2 Min PRNArcelia David N, M.D. NaCl 0.9% infusion, 20 mL/hr, intravenous, Once PRNArcelia David N, M.D. naloxone injection 0.2 mg (Narcan), 0.2 mg, intravenous, Once PRNArcelia David N, M.D. sodium chloride 0.9 % injection 10 mL, 10 mL, intravenous, PRN, Olu Paniagua M.D. sodium chloride 0.9 % injection 3 mL, 3 mL, intravenous, PRN, Olu Paniagua M.D. sodium chloride 0.9 % injection 3 mL, 3 mL, intravenous, Q12H LUCINDAArcelia David N, M.D. ALLERGIES No Known Allergies VITAL SIGNS Temperature: [37.1 ??C] 37.1 ??C Heart Rate: [54-84] 62 Resp Rate: [13-26] 13 Blood Pressure: (94-144)/(42-86) 132/54 SpO2: [90 %-97 %] 94 % Flow Rate (L/min): [2 L/min] 2 L/min Height: [170.5 cm] 170.5 cm Weight: [93.7 kg] 93.7 kg BSA (Calculated - sq m): [2.1 sq meters] 2.1 sq meters BMI (Calculated): [32.2 kg/m??] 32.2 kg/m?? Pulse Rate: [42-66] 47 Wt Readings from Last 6 Encounters: 08/03/24 93.7 kg 07/15/24 98 kg 07/13/24 98 kg 04/12/24 98 kg 04/12/24 97.7 kg 12/25/15 102 kg I/O 12 0701 12/03 0700 12/ 0701 08/03 0700 08/03 0701 08/04 0700 I.V. (mL/kg) 400 (4.3) Crystalloid Bolus 10 Total Intake(mL/kg) 10 (0.1) 400 (4.3) Net +10 +400 PHYSICAL EXAMINATION Vitals reviewed. Constitutional General: He is not in acute distress. Cardiovascular Rate and Rhythm: Normal rate and regular rhythm. Extrasystoles are present. Pulmonary Effort: Pulmonary effort is normal. No respiratory distress. Musculoskeletal Cervical back: Neck supple. Skin General: Skin is warm and dry. Neurological Mental Status: He is alert. LABORATORIES Recent Results (from the past 24 hours) ACT (Activated Clotting Time), POCT Collection Time: 08/03/24 9:20 AM Result Value Activated Clotting Time, POCT 195 (H) DIAGNOSTICS ECG Pre TAVR ECG Post-TAVR TTE 12/04/24 Final Impressions 1. TTE imaging performed during [...] regurgitation visualized. 12. No pericardial effusion post-procedure. PERTINENT TELEMETRY EVENTS ASSESSMENT / PLAN Mr. Gale is a 79 y.o. male with medical history significant for severe aortic stenosis who presented and is now s/p implantation of catheter-delivered prosthetic aortic heart valve (26 mm Stewart ZOHRA S3 transcatheter heart valve) on 08/03/24. 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 We thus decided to proceed with pacemaker implantation given the baseline trifascicular block and worsened OK prolongation after TAVR. We reviewed the details and rationale of implantation of a dual chamber pacemaker with the patient tentatively on 08/03/24. I also spoke directly with his significant other who was in the hospital room regarding this. The procedure includes making a skin incision, accessing a blood vessel, and inserting device leadsinto the heart. We discussed the use of sedation and the necessity of post procedure recovery. Routinely, patients will stay overnight to have the device interrogated the next morning before dismissal. The procedure takes approximately 1-2 hours. We discussed use of Hibiclens the night prior to, and the morning of the scheduled procedure. We discussed medications which need to be held or monitored prior to the procedure and to have nothing to eat or drink after midnight. We also discussed the risks of the procedure. Early procedural complications occur in approximately2-3% of patients and include but are not limited to vascular access problems including pain, bleeding, hematoma, AV fistula, and venous obstruction as well as pneumothorax, tamponade, valve damage, and perforation of the vessels or heart. Lead dislodgement or malfunction may occur which will require a repeat procedure. Late complications include a 2% risk of infection requiring complete removal of the device and leads as well as a 3% chance of device/lead recall. We discussed post-implantation restrictions and follow-up. This procedure has been fully reviewed with the patient and written informed consent has been obtained. All questions have been answered. RECOMMENDATIONS Dual chamber pacemaker and left sided generator, to be implanted on 08/03/24 Patient consented NPO after midnight. Hold unfractionated heparin for at least 6 hours prior to procedure; hold low molecular weight heparin for 24 hours. No heparin products for 48 hours after implantation. Oral anticoagulants (warfarin, Eliquis, Xarelto) and antiplatelet medications (aspirin, Plavix) may be continued. Perform nasal Bactroban and Hibiclens wash to the upper chest the night before and morning of the procedure. These can be ordered through the order set in [employer] (search: cardiology ablation/device pre-procedure). Please order a type and screen Please ensure a post-procedure CXR (PA and lateral) and 12-lead ECG are ordered for the following morning. A device interrogation and nurse education will occur the morning after implantation. Keep patient NPO until this has been completed. We will continue to follow. Thank you for involving us in the care of this patient. This case was discussed with customer care voice consultant Dr. Lacy. Please [place] [phone] with any questions or concerns. Alexus Lee M.D., M.P.H. PGY 5 Personal Insurance Advisor 08/03/24 Cosigned by Jeremy Lacy M.D. at 08/03/2024 12:57 PM ELEVATOR MECHANIC ATOR MECHANIC ATOR MECHANIC ATOR MECHANIC Associated attestation - Jeremy Lacy M.D. - 08/03/2024 12:57 PM ELEVATOR MECHANIC I saw and evaluated the patient, participating in the roberts portions of the service. I reviewed the resident/fellow???s note. I agree with the resident/fellow???s findings and plan. The patient is a 79-year-old male with a history of severe aortic stenosis who underwent TAVR with a Zohra valve earlier today. He had pre-existing AV conduction disease in the form of right bundle branch block, left anterior fascicular block, borderline first-degree AV block. There were no intra p rocedural instances of high-grade AV block. Postprocedure, as documented by ECG and no telemetry, he has demonstrated grouped beating, likely due to PACs that reset the sinus node. There is no clear evidence of nonconducted P waves, however the OK interval is slightly longer compared to baseline, manually measured at 240 milliseconds. His LV function is normal per pre-TAVR echocardiogram. In the setting of his severe pre-existing AV conduction disease and OK prolongation post-valve deployment, I believe that his risk for progression to higher-grade and complete AV block over the next hours and days is significant and therefore we recommended proceeding directly to permanent pacemaker implantation. The patient has already been consented for this prior to TAVR. He is right-handed and this will be a left-sided dual-chamber implant. All questions were answered. We will also update the patient's family. Rest per Dr. Lee. documented in this encounter OR Notes * Op Note - Major Barboza M.D., Ph.D. - 08/03/2024 8:28 AM CST PREOPERATIVE DIAGNOSIS: Severe, symptomatic aortic stenosis. POSTOPERATIVE DIAGNOSIS: Same. PROCEDURES PERFORMED: - Implantation of catheter-delivered prosthetic aortic heart valve (26 mm Stewart ZOHRA S3 transcatheter heart valve) CO-SURGEONS: Major Barboza M.D, Nelson Jones M.D. ANESTHESIA: Conscious Sedation CLINICAL HISTORY: This is a 79-year-old man with severe, symptomatic aortic stenosis. He is at high risk for conventional cardiac surgery. As such, transcatheter aortic valve implantation with the Stewart ZOHRA S3 device is planned, and Mr. Gale is taken to the operating room for transcatheter aortic valve implantation. Risks including , stroke, vascular injury, and need for emergent conversion to open cardiac surgery were discussed with the patient in detail. Surgical priority is elective. DESCRIPTION OF PROCEDURE: After informed consent was obtained, the patient was brought to the hybrid operating room and positioned supine on the hybrid OR table. Prophylactic antibiotics were administered preoperatively. Invasive monitoring lines were placed by the cardiothoracic anesthesia team. The patient was prepped anddraped from the chin to mid thighs. Surgical time-out was performed. The right common femoral artery is then accessed with a micropuncture. The right femoral artery is then accessed percutaneously using a micropuncture technique and a sheath placed. The patient was systemically heparinized with 100 units per kg of IV heparin to goal ACT greater than 250. A 5-Estonian pigtail catheter is then passed up from the right radial arterial sheath and positioned in the right coronary sinus. An Stewart S3-sheath is passed over a stiff wire. Several root angiograms are shot, and the optimal view for visualization of the aortic root is obtained. The aortic valve was then crossed using a straight-tip wire and an AL-1 catheter. The straight wireis exchanged for a long flexible J-tip wire. A Stiff wire with a gentle pre-fashioned curve is positioned in the apex of the LV under POLLACK imaging. Care is taken to avoid contact with the ventricular wall with the transition point of the wire to avoid perforation. The C-arm is then changed back to the ideal imaging plane in SWEDISH. A 26-mm Stewart ZOHRA S3 device is simultaneously prepped and loaded on the back table and then passed from the right groin and positioned across the aortic valve. The ideal landing zone is identified based on the pigtail catheter in the right coronary sinus, heavy aortic valve calcification, and findings on root angiograms. Rapid pacing to a rate of 180 and a blood pressure less than 50 mm Hg is performed, and a final positioning angiogram shot. This is then repeated and the valve deployed in the intended position with an 80:20 split above and below the plane of the annulus. Deployment is done under cine-angiography with the root angiogram performed at the beginning of deployment to further delineate the landing zone. Thoracic aortogram in SWEDISH projection demonstrates no AI or paravalvular leak; similar findings are seen by KEELY. The catheters are removed over a wire. The R groin sheath arterial puncture site was closed with a Perclose device. There is an excellent pulse in the artery after repair completion. Protamine is administered. Hemostasis is obtained. The left femoral sheath is removed in the OR andsimilarly sealed with a percutaneous closure device. All sponge, needle, and instrument counts are reported correct at the end of the case. The patient is taken extubated to ICU in stable condition at the end of procedure. Dr. Jones and Shell jointly performed the procedure and all of the critical components. I, the attending co-surgeon, was scrubbed and present for the entire procedure. ATOR MECHANIC * Brief Op Note - Olu Paniagua M.D. - 08/03/2024 8:28 AM CST Images from the original note were not included. PATIENT: Neal Gale : 1945 DATE OF SERVICE: 08/03/2024 Procedure: Successful transfemoral transcatheter aortic valve replacement with a 26 mm Stewart Zohra 3 Ultra valve +2cc additional volume via the right common femoral artery Implant Name Type Inv. Item Serial No. Electrician Assistant Lot No. LRB No. Used Action VLV ZOHRA S3 ULTRA 26 - [id number] - [id number] Cardiac Valve Prosthesis VLV ZOHRA S3 ULTRA 26 [id number] [employer] N/A 1 Implanted Surgeon(s): Major Barboza M.D., Ph.D. Nelson Jnoes M.D., Ph.D. Olu Paniagua M.D. Indication: Severe, symptomatic aortic valve stenosis Access Site(s): Right radial artery, 6 Estonian sheath(s). Removed at the end of the case with TR band placement for compression hemostasis. Right common femoral artery, 14 Estonian sheath(s). Removed at the end of the case with closure of the arteriotomy site using suture-based vascular closure device(s). Left femoral vein, 6 Estonian sheath(s). Sutured in at the end of the case to be removed later in recovery. Complications: No Recommendations: -Aspirin 81mg daily indefinitely barring any complications -HRS consult for possible pacemaker implantation -Admission overnight on interventional service Please see customer care voice consultant cath operative report for further information. This is available under Document Viewer as Diagnostic Report - Cath/EP. Code status: FULL, until time of discharge If clinical status changes, please contact the proceduralist to discuss reversal of code status. Olu Paniagua M.D. 08/03/24 ATOR MECHANIC documented in this encounter Miscellaneous Notes * Hospital Course - Rocio Bailey APRN, C.N.P., D.N.P., M.S.N. - 08/03/2024 2:15 PM CST Mr. Gale underwent successful transfemoral insertion of a 26 mm Zohra S3 in the aortic position with Dr. Jones and Dr. Barboza on 08/03/2024 in the setting of symptomatic severe calcific aortic valve stenosis. He has medical comorbidities including, but not limited to, severe calcific aortic valve stenosis with a mean AV gradient 74 mmHg, bifascicular block, elevated BMI of 32, systemic hypertension, chronic kidney disease stage IIIA due to hypertensive nephrosclerosis, osteoarthritis, chronic diarrhea following cholecystectomy, depression, obstructive sleep apnea with CPAP intolerance. Known intra procedural complications. At baseline his ECG displayed high-risk features (AV block, bifascicular block). Postprocedure ECG showed continued sinus rhythm first-degree AV block, right bundle-branch block, left anterior fascicular block, bifascicular block, with a prolonging OK interval. Electrophysiology was consulted ultimately recommended implantation of left- sided dual-chamber permanent pacemaker which he underwent without complications on 08/03/2024. Next day follow-up chest x-ray confirmed lead placement and ruled out pneumothorax. Device interrogation confirmed device functioning. Low-dose aspirin as monotherapy recommended indefinitely. SBE prophylaxis recommended lifelong. - Anticoagulation / antiplatelet: Low-dose aspirin - Conduction concerns: Right bundle-branch block, left anterior fascicular block, first-degree AV block, leading to pacemaker implant - NYHA Class prior to procedure: 2 - Acute Heart failure on admission: No Worsening subjective symptoms over the last 4 weeks: Fatigue - HF Medication changes in the past 4 weeks due to symptoms? No - Received IV Lasix in the last 4 weeks? No - Hospitalized in the last 4 weeks for HF management? No - Neurological complications identified: None identified Prior to discharge, he was voiding, ambulating, and tolerating oral intake without difficulty. He denies any new or worsening cardiovascular symptoms. Follow-up instructions were discussed including restrictions. He was instructed on when to seek emergency medical attention should he develop any new or worsening cardiovascular symptoms. He was in agreement to the above plan and had all questions and concerns addressed prior to discharge. He was discharged home to self-care. ATOR MECHANIC ATOR MECHANIC ATOR MECHANIC ATOR MECHANIC documented in this encounter Plan of Treatment Upcoming Encounters Date Type Department Care Team (Latest Contact Info) Description 09/20/2024 9:00 AM ELEVATOR MECHANIC Clinical Communication Virtual Review in [address] [phone] 09/21/2024 11:20 AM ELEVATOR MECHANIC Appointment Department of Laboratory Medicine and Pathology, [facility], in [address] [phone] Enrico Knight APRN, C.N.P., M.S.N. [address] [place] [phone] 09/21/2024 11:40 AM ELEVATOR MECHANIC Ancillary Procedure Department of Cardiovascular Medicine in [address] [phone] Enrico Knight APRN, C.NArnaldo., M.S.N. [address] [place] [phone] 09/21/2024 12:15 PM ELEVATOR MECHANIC Appointment Department of Cardiovascular Diseases in [place], [place] [address] [place] [phone] Enrico Knight APRN, C.N.P., M.S.N. [address] [place] [phone] Discharge Disposition: Home or Self Care 09/22/2024 9:30 AM ELEVATOR MECHANIC Office Visit Department of Cardiovascular Medicine in [place], [place] [address] [place] [phone] Edna Sandra APRN, C.NArnaldo., M.S.N. [address] [place] [phone] Pending Results Name Type Priority Associated Diagnoses Date/Time Cardiac Device Interrogation Implantable Cardiac Device Routine 08/04/2024 8:26 AM ELEVATOR MECHANIC Scheduled Procedures Name Priority Associated Diagnoses Date/Ti me ENDOSCOPY SLEEP STATE Obstructive Sleep Apnea Adult Scheduled Referrals Name Type Priority Associated Diagnoses Orde r Schedule External referral cardiac rehab program (non-[place]) Outpatient Referral Routine Prosthesis Aortic Valve Ordered: 08/04/2024 documented as of this encounter Procedures Procedure Name Priority Date/Time Associated Diagnosis Comments CBC WITHOUT DIFFERENTIAL, B Routine 08/04/2024 9:22 AM ELEVATOR MECHANIC BASIC METABOLIC PANEL, S/P Routine 08/04/2024 9:22 AM ELEVATOR MECHANIC DX CHEST AP OR PA AND LATERAL 2 VIEWS RAD - Routine (most inpatients and all outpatients) 08/04/2024 8:51 AM ELEVATOR MECHANIC CAR CARDIAC DEVICE INTERROGATION Routine 08/04/2024 8:26 AM ELEVATOR MECHANIC Procedure Note - Sql Database DeveloperMorgan M.D. - 08/04/2024 8:26 AM CSTThis note [...] was reviewed. ECG Routine 08/04/2024 6:58 AM ELEVATOR MECHANIC ECG Routine 08/04/2024 5:13 AM ELEVATOR MECHANIC ACT, POCT, B Routine 08/03/2024 6:04 PM ELEVATOR MECHANIC HEART RHYTHM PROCEDURE Routine 08/03/2024 3:42 PM ELEVATOR MECHANIC HEART RHYTHM PROCEDURE Routine 08/03/2024 3:42 PM ELEVATOR MECHANIC ADULT OXYGEN THERAPY Routine 08/03/2024 1:22 PM ELEVATOR MECHANIC ADULT OXYGEN THERAPY Routine 08/03/2024 1:22 PM ELEVATOR MECHANIC ADULT OXYGEN THERAPY Routine 08/03/2024 1:22 PM ELEVATOR MECHANIC CAR CARDIAC DEVICE INTERROGATION Routine 08/03/2024 11:52 AM ELEVATOR MECHANIC ECG Semiurgent (Fast, mo st ED patients, some inpatients) 08/03/2024 10:54 AM ELEVATOR MECHANIC CARDIAC CATHETERIZATION Routine 08/03/2024 9:51 AM ELEVATOR MECHANIC Stenosis Aortic Valve Acquired CARDIAC CATHETERIZATION Routine 08/03/2024 9:51 AM ELEVATOR MECHANIC Stenosis Aortic Valve Acquired CARDIAC CATHETERIZATION Routine 08/03/2024 9:51 AM ELEVATOR MECHANIC Stenosis Aortic Valve Acquired CARDIAC CATHETERIZATION Routine 08/03/2024 9:51 AM ELEVATOR MECHANIC Stenosis Aortic Valve Acquired (TTE) 2D LIMITED WITH COLOR AND LIMITED DOPPLER Routine 08/03/2024 9:50 AM ELEVATOR MECHANIC ACT, POCT, B Routine 08/03/2024 9:20 AM ELEVATOR MECHANIC TRANSCATHETER AORTIC VALVE REPLACEMENT TRANS FEMORAL 08/03/2024 7:58 AM ELEVATOR MECHANIC Stenosis Aortic Valve Acquired documented in this encounter Results * (ABNORMAL) CBC without Differential (08/04/2024 9:22 AM ELEVATOR MECHANIC) Hemoglobin 11.9(L) 13.2 - 16.6 g/dL 08/04/2024 10:14 AM ELEVATOR MECHANIC DTL Hematocrit 35.2(L) 38.3 - 48.6 % 08/04/2024 10:14 AM ELEVATOR MECHANIC DTL Erythrocytes 3.66(L) 4.35 - 5.65 x10(12)/L 08/04/2024 10:14 AM ELEVATOR MECHANIC DTL MCV 96.2 78.2 - 97.9 fL 08/04/2024 10:14 AM ELEVATOR MECHANIC DTL RBC Distrib Width 12.0 11.8 - 14.5 % 08/04/2024 10:14 AM ELEVATOR MECHANIC DTL Platelet Count 139 135 - 317 x10(9)/L 08/04/2024 10:14 AM ELEVATOR MECHANIC DTL Leukocytes 8.9 3.4 - 9.6 x10(9)/L 08/04/2024 10:14 AM ELEVATOR MECHANIC DTL Blood (Blood, Venous) 08/04/2024 9:22 AM ELEVATOR MECHANIC 08/04/2024 9:40 AM ELEVATOR MECHANIC us Enrico Knight APRN, C.N.P., M.S.N. LAB BLOOD A DD-ON Final Result [facility] [address] [place] [address], [facility] DTL [facility] [address] [place] [address] * (ABNORMAL) Basic Metabolic Panel (08/04/2024 9:22 AM ELEVATOR MECHANIC) Pathologist [facility] Potassium, S 4.3 3.6 - 5.2 mmol/L 08/04/2024 10:57 AM ELEVATOR MECHANIC DTL Sodium, S 134(L) 135 - 145 mmol/L 08/04/2024 10:57 AM ELEVATOR MECHANIC DTL Chloride, S 104 98 - 107 mmol/L 08/04/2024 10:57 AM ELEVATOR MECHANIC DTL Bicarbonate, S 20(L) 22 - 29 mmol/L 08/04/2024 10:57 AM ELEVATOR MECHANIC DTL Anion Gap 10 7 - 15 08/04/2024 10:57 AM ELEVATOR MECHANIC DTL BUN (Blood Urea Nitrogen), S 27(H) 8 - 24 mg/dL 08/04/2024 10:57 AM ELEVATOR MECHANIC DTL Creatinine 1.92(H) 0.74 - 1.35 mg/dL 08/04/2024 10:57 AM ELEVATOR MECHANIC DTL Estimated GFR (eGFR) 35(L) >=60 mL/min/BSA 08/04/2024 10:57 AM ELEVATOR MECHANIC DTL Comment: Estimated GFR calculated using the 2020 CKD_EPI creatinine equation. Calcium, Total, S 8.8 8.8 - 10.2 mg/dL 08/04/2024 10:57 AM ELEVATOR MECHANIC DTL Glucose, S 104 70 - 140 mg/dL 08/04/2024 10:57 AM ELEVATOR MECHANIC DTL Blood (Blood, Venous) 08/04/2024 9:22 AM ELEVATOR MECHANIC 08/04/2024 9:54 AM ELEVATOR MECHANIC Enrico Knight APRN, C.N.P., M.S.N. LAB BLOOD A DD-ON Final Result [facility] [address] [place] [address], [facility] DTL [facility] [address] [place] [address] * DX Chest AP or PA and Lateral 2 Views (08/04/2024 8:51 AM ELEVATOR MECHANIC) Anatomical Region Laterality Modality Chest, Thoracic RST LOS, Tho racic ARZ LOS, Thoracic FLA LOS N/A Digital Radiography Impressions 08/04/2024 8:56 AM ELEVATOR MECHANIC Since 07/13/2024, new left subclavian pacemaker with leads projecting over the RA and RV. Interval TAVR. Cardiac silhouette size upper limits of normal. Aortic calcifications. Surgical clips RUQ. Chest otherwise negative. Narrative 08/04/2024 8:56 AM ELEVATOR MECHANIC EXAM: DX CHEST AP OR PA AND [...] * ECG 12 Lead (08/04/2024 6:58 AM ELEVATOR MECHANIC) Ventricular Rate ECG/Min 60 BPM MUSE OK Interval 230 ms MUSE QRSD Interval 144 ms MUSE QT Interval 456 ms MUSE QTC Interval 456 ms MUSE P [place] 36 degrees MUSE R [place] -82 degrees MUSE T Wave [place] 15 degrees MUSE 08/04/2024 6:58 AM ELEVATOR MECHANIC 08/04/2024 7:07 AM ELEVATOR MECHANIC Impressions MUSE - 08/04/2024 7:07 AM ELEVATOR MECHANIC Atrial-paced rhythm Right bundle branch block with [...] no longer present Reviewed by SKYE Agee us Enrico Knight APRN, C.N.P., M.S.N. ECG ORDERAB LES Final Result MUSE NA * ECG 12 Lead (08/04/2024 5:13 AM ELEVATOR MECHANIC) Ventricular Rate ECG/Min 62 BPM MUSE OK Interval 204 ms MUSE QRSD Interval 142 ms MUSE QT Interval 444 ms MUSE QTC Interval 450 ms MUSE P [place] 7 degrees MUSE R [place] -83 degrees MUSE T Wave [place] -13 degrees MUSE 08/04/2024 5:13 AM ELEVATOR MECHANIC 08/04/2024 5:19 AM ELEVATOR MECHANIC Impressions MUSE - 08/04/2024 5:19 AM ELEVATOR MECHANIC Sinus rhythm with 1st degree A-V block Two atrial-paced complexes Right bundle branch block with secondary ST-T abnormalities Left anterior fascicular block Bifascicular block When compared with ECG of 03-Aug-2024 10:54, Premature atrial complexes are no longer present Atrial pacing is now present Reviewed by SKYE Quinones Narrative Procedure Note Morales Huerta Jr., M.D. - 08/04/2024 IMPRESSION: Sinus rhythm with 1st degree A-V block Two atrial-paced complexes Right bundle branch block with secondary ST-T abnormalities Left anterior fascicular block Bifascicular block When compared with ECG of 03-Aug-2024 10:54, Premature atrial complexes are no longer present Atrial pacing is now present Reviewed by SKYE Quinones Chano Powell M.D., M.S. ECG ORDERABLES Final Result MUSE NA * ACT (Activated Clotting Time), POCT (08/03/2024 6:04 PM ELEVATOR MECHANIC) Activated Clotting Time, POCT 125 84 - 139 sec 08/03/2024 6:45 PM ELEVATOR MECHANIC PCSM Blood (Blood, Venous) 08/03/2024 6:04 PM ELEVATOR MECHANIC 08/03/2024 6:07 PM ELEVATOR MECHANIC us Enrico Knight APRN C.N.P., M.S.N. LAB POCT OR DERABLES - DEVICE Final Result Performing Organization Address City/[facility] Co de Phone Number POC [facility] [address] [place] [address], [facility] PCSM [facility] [address] [place] [address] * PPM IMPLANT - DUAL CHAMBER, LEFT BUNDLE PACING (08/03/2024 3:42 PM ELEVATOR MECHANIC) Anatomical Region Laterality Modality X-Ray Angiograph y 08/03/2024 1:18 PM ELEVATOR MECHANIC Narrative 08/03/2024 4:22 PM ELEVATOR MECHANIC For the complete report, see the Order-Level Documents. PROCEDURE TYPES 1. PPM IMPLANT - DUAL CHAMBER 2. 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 The sheath was slit with the PowerPractical adjustable slitter. 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 The sheath was slit with the [employer] adjustableslitter. The peel-away sheath was removed and [...] DEVICE - NO CHARGE (08/03/2024 11:52 AM ELEVATOR MECHANIC) Date Time Interrogation Session [id number] [employer] SYSTEM Implantable Pulse Generator Electrician Assistant [employer] LAB SYSTEM Implantable Pulse Generator Type Pacemaker [employer] LAB SYSTEM Implantable Pulse Generator Model L331 [employer] LAB SYSTEM Implantable Pulse Generator Serial Number [id number] [facility] Implantable Pulse Generator Implant Date 20240803 [employer] LAB SYSTEM Battery Status [facility] Lead Channel Sensing Intrinsic Amplitude 2.600 [employer] LAB SYSTEM Lead Channel Setting Sensing Sensitivity 0.75 [employer] LAB SYSTEM Lead Channel Impedance Value 570 [employer] LAB SYSTEM Lead Channel Pacing Threshold Amplitude 0.700 [facility] Lead Channel Pacing Threshold Pulse Width 0.4 [employer] LAB SYSTEM Lead Channel Measurements Date and Time 20240803 [employer] LAB SYSTEM Lead Channel Setting Pacing Amplitude [...] Pacing Pulse Width 0.4 [facility] Jarad Setting Mode (NBG Code) AAIR-VVI [facility] Jarad Setting Lower Rate Limit 60 [facility] Jarad Setting AT Mode Switch Rate 170 [facility] Jarad Setting Maximum Tracking Rate 120 [facility] Jarad Setting Maximum Sensor Rate 120 [facility] Jarad Setting PAV Delay 210 [facility] Jarad Setting TRACIE Delay 200 [facility] Zone Setting Type Category AT/AF [...] 2 [facility] Implantable Lead Electrician Assistant [employer] [facility] Implantable Lead Model 7842-59 [facility] Implantable Lead Location Right Ventricle [facility] Implantable Lead Connection Status Connected [facility] Implantable Lead Serial Number [id number] [facility] Implantable Lead Implant Date 20240731 [facility] Implantable Lead Special Function Lead length: 59.00 cm [facility] Implantable Lead Electrician Assistant [employer] [facility] Implantable Lead Model 7841-52 [facility] Implantable Lead Location Right Atrium [facility] Implantable Lead Connection Status Connected [facility] Implantable Lead Serial Number [id number] [facility] Implantable Lead Implant Date 20240731 [facility] Implantable Lead Special Function Lead length: 52.00 cm [facility] SYSTEM Anatomical Region Laterality Modality Other 08/03/2024 3:56 PM ELEVATOR MECHANIC Impressions 08/03/2024 3:56 PM ELEVATOR MECHANIC Encounter Impression: Title: New Device Implanted * New Device Implant Date: 08/03/2024 * Device implanted by Dr. Powell at [facility] * Programmed parameters were reviewed * [...] * Device implanted by Dr. Powell at [facility] * Programmed parameters were reviewed * [...] IMPLANT ABLE CARDIAC DEVICE Final Result * ECG 12 Lead (08/03/2024 10:54 AM ELEVATOR MECHANIC) Ventricular Rate ECG/Min 61 BPM MUSE OK Interval 222 ms MUSE QRSD Interval 150 ms MUSE QT Interval 490 ms MUSE QTC Interval 493 ms MUSE P [place] 95 degrees MUSE R [place] -86 degrees MUSE T Wave [place] -46 degrees MUSE 08/03/2024 10:5 4 AM ELEVATOR MECHANIC 08/03/2024 11:54 AM ELEVATOR MECHANIC Impressions MUSE - 08/03/2024 11:22 AM ELEVATOR MECHANIC Sinus bradycardia with 1st degree A-V block Premature atrial complexes Right bundle branch block Left anterior fascicular block Bifascicular block Cannot rule out Inferior infarct Nonspecific ST and T wave abnormality When compared with ECG of 13-Jul-2024 13:11, No significant change was found Reviewed by SKYE Lopez Narrative Procedure Note Kendell Last M.D. - 08/03/2024 IMPRESSION: Sinus bradycardia with 1st degree A-V block Premature atrial complexes Right bundle branch block Left anterior fascicular block Bifascicular block Cannot rule out Inferior infarct Nonspecific ST and T wave abnormality When compared with ECG of 13-Jul-2024 13:11, No significant change was found Reviewed by SKYE Lopez Chano Mario APRN.N.P., M.S.N. ECG ORDERAB LES Edited Result - Final MUSE NA * TRANSCATHETER AORTIC VALVE REPLACEMENT, AORTIC ROOT AORTOGRAM, TEMPORARY PACEMAKER INSERTION, LEFT HEART CATHETERIZATION (08/03/2024 9:51 AM ELEVATOR MECHANIC) Anatomical Region Laterality Modality X-Ray Angiograph y 08/03/2024 8:59 AM ELEVATOR MECHANIC Narrative 08/04/2024 10:06 AM ELEVATOR MECHANIC For the complete report, see the Order-Level [...] artery, and left femoral vein, and 6 Estonian sheaths were inserted. The right femoral artery access was pre-closed using two suture-based vascular closure devices and upsized to an 8 [place] sheath. Therapeutic heparin was administered. A temporary [...] thoracic aorta, we then exchanged the 8 [place]ian sheath for the 14 [place]ian expandable Stewart sheath. An AL1 was advanced with a J wire to the level of the aortic valve and a straight wire was used to cross into the left ventricle. A 6 Estonian pigtail catheter was used to measure an [...] femoral artery, and left femoralvein, and 6 [place]ian sheaths were inserted. The right femoral artery accesswas pre-closed using two suture-based vascular closure devices and upsizedto an 8 [place]ian sheath. Therapeutic heparin was administered. A temporary [...] thoracic aorta, we then exchanged the 8 [place] sheathfor the 14 [place]ian expandable Stewart sheath. An AL1 was advanced with a Jwire to the level of the aortic valve and a straight wire was used tocross into the left ventricle. A 6 [place]ian pigtail catheter was used tomeasure an LVEDP. [...] Right radial artery angiogram was taken through [facility], demonstrating a recurrent radial artery. The [...] COLOR AND LIMITED DOPPLER (08/03/2024 9:50 AM ELEVATOR MECHANIC) Pathologist [facility] Ejection Fraction 55 MC CV EIMS Left [...] Region Laterality Modality Other 08/03/2024 7:33 AM ELEVATOR MECHANIC Impressions 08/03/2024 10:00 AM ELEVATOR MECHANIC Echo performed in the Cardiac Cath Laboratory. [...] the Order-Level Documents. Narrative 08/03/2024 10:00 AM ELEVATOR MECHANIC For the complete report, see the Order-Level [...] CV ECHO PROCEDURES Mini l Result * (ABNORMAL) ACT (Activated Clotting Time), POCT (08/03/2024 9:20 AM ELEVATOR MECHANIC) Activated Clotting Time, POCT 195(H) 84 - 139 sec 08/03/2024 9:21 AM ELEVATOR MECHANIC PCSM Blood 08/03/2024 9:20 AM ELEVATOR MECHANIC 08/03/2024 9:21 AM ELEVATOR MECHANIC us Unknown Provider LAB POCT ORDERABLES - DEVICE Fi nal Result [facility] [address] [place] [address], [facility] PCSM [facility] [address] [place] [address] documented in this encounter Visit Diagnoses Diagnosis Stenosis Aortic Valve Acquired- Primary Stenosis Aortic Valve Acquired Prosthesis Aortic Valve Chronic Diastolic (Congestive) Heart Failure (HCC) Chronic Kidney Disease (CKD), Stage 3a Glomerular Filtration Rate (GFR) 45 To 59 (HCC) Hyperlipidemia Hypertensive Chronic Kidney Disease With Stage 1 Through Stage 4 Chronic Kidney Disease, Or Unspecified Chronic Kidney Disease Obstructive Sleep Apnea Adult Obesity Body Mass Index 30-39.9 Adult Bundle Branch Block Right And Left Anterior Fascicular Block Atrioventricular First Degree Pacemaker Cardiac Status Post Stenosis Aortic Valve Acquired documented in this encounter Admitting Diagnoses Diagnosis Stenosis Aortic Valve Acquired documented in this encounter Administered Medications Inactive Administered Medications - up to 3 most recent administrations Medication Order MAR Action Action Date Dose Rate Site acetaminophen tablet 1,000 mg (TylenoL) 1,000 mg, oral, Every 6 hours PRN, mild pain or score 1-3 of 10, Starting on Thu08/03/24 at 1014, Postprocedure (CV) Given 08/04/2024 11:39 AM ELEVATOR MECHANIC 1,000 mg Given 08/04/2024 5:31 AM ELEVATOR MECHANIC 1,000 mg Given 08/03/2024 11:48 PM ELEVATOR MECHANIC 1,000 mg aspirin chewable tablet 81 mg 81 mg, oral, Daily, First dose on Thu08/04/24 at 0900 Given 08/04/2024 10:50 AM ELEVATOR MECHANIC 81 mg ceFAZolin injection 2 g (Ancef) 2 g, intravenous, Once, On Thu08/03/24 at 2100, For 1 dose, For immediate IV push administration, reconstitute vial per IVAG or package insert instructions. See IVAG for administration guidelines., Drug Monitoring Program: Pharmacist to adjust medication dosing based on indication and drug clearance factors., Indications: Prophylaxis, surgicalIndications:Prophylaxis, surgical Given 08/03/2024 8:00 PM ELEVATOR MECHANIC 2 g cholestyramine-aspartame 4 gram packet 1 packet (Prevalite) 1 packet, oral, 2 times daily before midday and evening meals, First dose on Thu08/03/24 at 1600, OK for patient to take his home medication. Administer other oral medications at least 1 hour before or 4 to 6 hours after cholestyramine, due to the potential to bind to orally administered drugs. Given 08/03/2024 6:26 PM ELEVATOR MECHANIC 1 packet cholestyramine-aspartame 4 gram packet 1 packet (Prevalite) 1 packet, oral, 2 times daily before midday and evening meals, First dose on Thu08/04/24 at 1100, Pt own med Mix one 4 gram packet in 60 mL water then administer ordered dose. Administer other oral medications at least 1 hour before or 4 to 6 hours after cholestyramine, due to the potential to bind to orally administered drugs. Given 08/04/2024 10:41 AM ELEVATOR MECHANIC 1 packet fentaNYL injection 25 mcg (Sublimaze) 25 mcg, intravenous, Every 2 hour PRN, moderate pain or score 4-6 of 10, Starting on Thu08/03/24 at 1321, Postprocedure (CV), May repeat x1 dosing interval, if patient unable to take oral analgesics or oral analgesics are ineffective fentaNYL injection 50 mcg (Sublimaze) 50 mcg, intravenous, Every 2 hour PRN, severe pain or score 7-10 of 10, Starting on Thu08/03/24 at 1321, Postprocedure (CV), May repeat x1 dosing interval, if patient unable to take oral analgesics or oral analgesics are ineffective pantoprazole DR tablet 40 mg (Protonix) 40 mg, oral, Daily before morning meal, First dose on Thu08/04/24 at 0700, pantoprazole 40 mg oral daily was interchanged for omeprazole 20 or 40 mg oral daily Swallow whole. Do NOT crush, chew, or split tablet. Given 08/04/2024 5:34 AM ELEVATOR MECHANIC 40 mg documented in this encounter Active and Recently Administered Medications Times are shown in ELEVATOR MECHANIC. Scheduled Medication Order 08/02/2024 08/03/2024 08/04/2024 aspirin chewable tablet 81 mg 81 mg, oral, Daily, First dose on Thu08/04/24 at 0900 1050 (Given - Provid er: Farhan Jean R.N.) ceFAZolin injection 2 g (Ancef) (COMPLETED) 2 g, intravenous, Once, On Thu08/03/24 at 2100, For 1 dose, For immediate IV push administration, reconstitute vial per IVAG or package insert instructions. See IVAG for administration guidelines., Drug Monitoring Program: Pharmacist to adjust medication dosing based on indication and drug clearance factors., Indications: Prophylaxis, surgical 1999 (Given - Provider: Soheila Sanchez R.N.) chlorthalidone tablet 25 mg (Hygroton) 25 mg, oral, Daily, First dose on Thu08/04/24 at 0900 1058 (Not Given - Provider: Farhan Jean R.N. - Reason: Patient/family refused - Comment: will take later today at home) cholestyramine-aspartame 4 gram packet 1 packet (Prevalite) (CANCELED) 1 packet, oral, 2 times daily before midday and evening meals, First dose on Thu08/03/24 at 1600, OK for patient to take his home medication. Administer other oral medications at least 1 hour before or 4 to 6 hours after cholestyramine, due to the potential to bind to orally administered drugs. 1825 (Given - Provider: Destiney Patrick R.N. - Comment: patient supplied med) cholestyramine-aspartame 4 gram packet 1 packet (Prevalite) 1 packet, oral, 2 times daily before midday and evening meals, First dose on Thu08/04/24 at 1100, Pt own med Mix one 4 gram packet in 60 mL water then administer ordered dose. Administer other oral medications at least 1 hour before or 4 to 6 hours after cholestyramine, due to the potential to bind to orally administered drugs. 1041 (Given - Provid er: Farhan Jean R.N.) lisinopriL tablet 20 mg 20 mg, oral, Daily, First dose on Keyla 08/04/24 at 0900 1058 (Not Given - Provider: Farhan Jean R.N. - Reason: Patient/family refused - Comment: will take later today at home) pantoprazole DR tablet 40 mg (Protonix) 40 mg, oral, Daily before morning meal, First dose on Keyla 08/04/24 at 0700, pantoprazole 40 mg oral daily was interchanged for omeprazole 20 or 40 mg oral daily Swallow whole. Do NOT crush, chew, or split tablet. 0534 (Given - Provid er: Soheila Sanchez R.N.) PRN Medication Order 08/02/2024 08/03/2024 08/04/2024 acetaminophen tablet 1,000 mg (TylenoL) 1,000 mg, oral, Every 6 hours PRN, mild pain or score 1-3 of 10, Starting on Thu08/03/24 at 1014, Postprocedure (CV) 1019 (Given - Provider: Shira Gonsalves RCurtis)1636 (Given - Provider: Destiney Patrick RCurtis)2348 (Given - Provider: Soheila Sanchez R.N.) 0531 (Given - Provider: Soheila Sanchez R.N.)1139 (Given - Provider: Farhan Jean R.N.) atropine injection 0.5 mg 0.5 mg, intravenous, Every 5 min PRN, Vasovagal response, Starting on Thu08/03/24 at 1321, For 4 doses, Postprocedure (CV) ceFAZolin injection (Ancef) (CANCELED) Code/trauma/sedation medication, Starting on Thu08/03/24 at 0843, Intraprocedure (CV) 0843 (Given - Provider: Daniela Lay RDimpleNDimple) fentaNYL injection 25 mcg (Sublimaze) (CANCELED) 25 mcg, intravenous, Every 2 min PRN, sedation, Administer over 1 minute immediately prior to the procedure. May repeat every 2 minutes to a maximum of 200 mcg, until pain score of 3 or less, or until the patient meets the pain comfort goal. or RASS 0 to -2. Do not give if respiratory rate is less than 8 breaths/minute, Starting on Thu08/03/24 at 0835, Intraprocedure (CV), Subsequent doses 0839 (Given - Provider: Daniela Lay R.N.)0848 (Given - Provider: Daniela Lay R.N.)0905 (Given - Provider: Daniela Lay R.N.)0930 (Given - Provider: Daniela Lay R.N.) fentaNYL injection 25 mcg (Sublimaze)(Linked Group 1) 25 mcg, intravenous, Every 2 hour PRN, moderate pain or score 4-6 of 10, Starting on Thu08/03/24 at 1321, Postprocedure (CV), May repeat x1 dosing interval, if patient unable to take oral analgesics or oral analgesics are ineffective fentaNYL injection 50 mcg (Sublimaze)(Linked Group 1) 50 mcg, intravenous, Every 2 hour PRN, severe pain or score 7-10 of 10, Starting on Thu08/03/24 at 1321, Postprocedure (CV), May repeat x1 dosing interval, if patient unable to take oral analgesics or oral analgesics are ineffective heparin (porcine) 1,000 unit/mL injection (CANCELED) Code/trauma/sedation medication, Starting on Thu08/03/24 at 0909, Intraprocedure (CV) 0909 (Given - Provider: Daniela Lay R.N.)0921 (Given - Provider: Daniela Lay R.N.) iohexoL 300 mg iodine/mL solution (Omnipaque) (CANCELED) Code/trauma/sedation medication, Starting on Thu08/03/24 at 1407, Intraprocedure (CV) 1407 (Given - Provider: Chano Powell M.D., M.S.) iohexoL 350 mg iodine/mL solution (Omnipaque) (CANCELED) Code/trauma/sedation medication, Starting on Thu08/03/24 at 0930, Intraprocedure (CV) 0930 (Given - Provider: Nelson Jones M.D., Ph.D.) lidocaine 10 mg/mL (1 %) injection (Xylocaine) (CANCELED) Code/trauma/sedation medication, Starting on Thu08/03/24 at 0852, Intraprocedure (CV) 0852 (Given - Provider: Olu Paniagua M.D.)0857 (Given - Provider: Olu Paniagua M.D.)0903 (Given - Provider: Olu Paniagua M.D.) lidocaine 10 mg/mL (1 %) injection (Xylocaine) (CANCELED) Code/trauma/sedation medication, Starting on Thu08/03/24 at 1322, Intraprocedure (CV) 1322 (Given - Provider: Chano Powell M.D., M.S.) lidocaine-EPINEPHrine 1 %-1:100,000 injection (Xylocaine w/epi) (CANCELED) Code/trauma/sedation medication, Starting on Thu08/03/24 at 0948, Intraprocedure (CV) 0948 (Given - Provider: Olu Paniagua M.D.) midazolam (PF) injection 0.5 mg (Versed) (CANCELED) 0.5 mg, intravenous, Every 2 min PRN, sedation, RASS -1, Starting on Thu08/03/24 at 0835, Intraprocedure (CV), May repeat every 2 minutes for a maximum of 5 mg. Do not give if respiratory rate is less than 8 breaths/minute. 0840 (Given - Provider: Daniela Lay RDevendra.)0848 (Given - Provider: Daniela Lay R.N.)0905 (Given - Provider: Dalia Chu.Robby.)0911 (Given - Provider: Daniela Lay R.N.) naloxone injection 0.2 mg (Narcan) 0.2 mg, intravenous, As needed, respiratory depression, Starting on Thu08/03/24 at 1321, Postprocedure (CV), For RASS Score -4 or less, respiratory rate of less than 8 breaths/min. Notify provider/service and rapid response team (if available at institution). Linked Groups Order Group 1: fentaNYL injection 25 mcg (Sublimaze)Jump to med 25 mcg, intravenous, Every 2 hour PRN, moderate pain or score 4-6 of 10, Starting on Thu08/03/24 at 1321, Postprocedure (CV), May repeat x1 dosing interval, if patient unable to take oral analgesics or oral analgesics are ineffective Or fentaNYL injection 50 mcg (Sublimaze)Jump to med 50 mcg, intravenous, Every 2 hour PRN, severe pain or score 7-10 of 10, Starting on Thu08/03/24 at 1321, Postprocedure (CV), May repeat x1 dosing interval, if patient unable to take oral analgesics or oral analgesics are ineffective documented in this encounter Care Teams Dinkey Engine Firer Relationship Specialty Start Date End Date Elsewhere, Pcp PCP - General Internal Medicine 08/03/24 documented as of this encounter
--- OUTSIDE RECORDS SUMMARY | 2024-08-08 15:12 | XMS_ITS | Encounter Summary ---
Author Organization [facility] Address [address] [place] [id number] Care Team Providers Care Outside Rigger Name Role Phone Elsewhere, Pcp Primary Care Provider Unavailabl e Encounter Details Date Type Department Care Team (Late st Contact Info) Description 08/03/2024 11:30 AM BARREL PLANER - 08/03/2024 2:00 PM [facility] Surgery Division of Cardiovascular Diseases in [place], [place] [address] [place] [phone] Chano Powell M.D., M.S. [address] [place] [phone] PPM Implant - Dual Chamber Social History Tobacco Use Types Packs/Day Years Used Date Smoking Tobacco: Never Smokeless Tobacco: Never [facility] Utilities Answer Date Recorded In the past 12 months has [facility] [employer]), gas, oil, or water [employer] threatened to shut off services in your [...] your living situation today? I have a [facility] place to live 08/03/2024 Sex and Gender Information Value Date Recorded Sex Assigned at Male 07/11/2024 10:53 AM BARREL PLANER Legal Sex Male 9:21 AM BARREL PLANER Gender Identity Male 07/11/2024 10:53 AM BARREL PLANER Sexual Orientation Straight 07/11/2024 10 :53 AM BARREL PLANER documented as of this encounter Last Filed Vital Signs Vital Sign Reading Time Taken Comments Blood Pressure 133/64 08/03/2024 12:00 PM BARREL PLANER Pulse 44 08/03/2024 12:15 PM BARREL PLANER Temperature 37.1 C (98.8 F) 08/03/2024 6:10 AM BARREL PLANER Respiratory Rate 13 08/03/2024 7:15 AM BARREL PLANER Oxygen Saturation 97% 08/03/2024 12:15 PM BARREL PLANER Inhaled Oxygen Concentration - - Weight 93.7 kg (206 lb 9.1 oz) 08/03/2024 6:10 A M BARREL PLANER Height 170.5 cm (5' 7.13) 08/03/2024 6:10 AM CS T Body Mass Index 32.3 08/03/2024 6:10 AM BARREL PLANER documented in this encounter Discharge Summaries * Rocio Bailey APRN, C.N.P., D.N.P., M.S.N. - 08/04/2024 8:49 AM BARREL PLANER [facility] DISCHARGE SUMMARY DATE OF ADMISSION: 08/03/2024 DATE OF DISCHARGE: 08/04/2024 Discharge Provider: Nelson Jones M.D., Ph.D. Discharge Provider Team: ARIELLE CVD Interventional/Cath PRINCIPAL DIAGNOSIS: Stenosis Aortic Valve [...] DR Radiology 09/21/2024 11:20 AM LAB BLOOD DENISEI CL C Laboratory Medicine 09/21/2024 11:40 AM ECG 01 JOSE NUÑEZ CVD Cardiovascular Disease 09/21/2024 12:15 PM ECHO (9) JOSE 06 244 Cardiovascular Disease 09/22/2024 9:30 AM Edna Sandra APRN, C.N.P., M.S.N. Cardiovascular Disease For appointment details [...] fascicular block, bifascicular block, with a prolonging WY interval. Electrophysiology was consulted ultimately recommended implantation [...] self-care. RESTRICTIONS: You were discharged from the [facility] CVD Interventional/Cath Service. Please identify this service [...] None Electronically signed by: Rocio Bailey APRN, C.N.P., D.N.P., M.S.N. 08/04/24 8:49 AM BARREL PLANER [facility] CVD Interventional/Cath EL PLANER documented in this encounter Discharge Instructions * Discharge Instructions* Madeline Wills R.N. - 08/03/2024 7:33 AM BARREL PLANER You were discharged from the [facility] CVD Interventional/Cath Service. Please identify this service [...] (usually 3-4 weeks). Pain: You may use [id number] Extra Strength Tylenol (acetaminophen) 500 mg tablets, [...] us to request this transfer at or [phone]. Remote Transmitter: You will be provided with [...] verify this initial connection by calling the [facility] at or [phone]; Thursday - Thursday, 8:00 AM - 4:30 PM BARREL PLANER. Please contact your device company with concerns or issues regarding your home transmitter. [employer] [phone] ALWAYS call 911 in the event of an emergency. EL PLANER EL PLANER EL PLANER EL PLANER * Attachments The following attachments cannot be sent through Care Everywhere. * Amoxicillin (By mouth) (Wolof) * Aspirin (By mouth) (Wolof) documented in this encounter Medications at Time [...] as of this encounter Progress Notes * Linda Lee M.D., M.P.H. - 08/04/2024 11:11 AM CST Images from the original note were not included. HEART RHYTHM CONSULT SERVICE - PROGRESS NOTE Location: [id number] [facility] CVD Interventional/Cath Hospital Day: 1 SUBJECTIVE He [...] AV block and LAFB) - Post TAVR WY prolongation >20 ms # Hypertension # Chronic kidney disease stage 3 # Obesity # Obstructive sleep apnea Post TAVR ECG on our measurement shows WY interval increase >20ms with new WY of 238 ms despite computer reading. We thus decided to proceed with pacemaker implantation given the baseline trifascicular block and worsened WY prolongation after TAVR. We underwent successful implantation [...] few weeks. This case was discussed with clinical science consultant Dr. Lacy. [place] [phone] with any questions or concerns. We will sign off at this time. Please ensure he has cardiology follow up to ensure they review remote device interrogations. Alexus Lee M.D., M.P.H. PGY5 Soil Tester 08/04/24 EL PLANER documented in this encounter H&P Notes * Enrico Knight APRN, C.N.P., M.S.N. - 08/03/2024 9:19 AM CST [...] Glomerular Filtration Rate (GFR) 45 To 59 ([facility]) #6 Hyperlipidemia #7 Hypertensive Chronic Kidney Disease [...] left-sided dual-chamber permanent pacemaker system noting further WY prolongation post valve deployment. Protamine was not [...] Learning needs assessment done. Barriers assessed (cultural, episcopal/spiritual, motivational, physical/cognitive, language, emotional). Ready to learn. Patient has no barriers. Explained diagnosis and treatment options. MARGIN CODE Total time: 75 min. Counseling Time: Greater than 50%. Enrico Knight APRN, C.N.P., M.S.N. 08/03/24 EL PLANER documented in this encounter Consult Notes * Rocio Bhakta CEP - 08/04/2024 10:26 AM CSTAssociated Order(s): [...] the cardiac rehab program. Patient referred to: [facility] [address] [place] [address] Recommend that the patient check with insurance company to verify coverage of the cost of cardiac rehabilitation program visits. EL PLANER * Linda Lee M.D., M.P.H. - 08/03/2024 11:12 AM CSTAssociated Order(s): IP CONSULT TO CARDIOLOGY Images from the original note were not included. HEART RHYTHM CONSULT SERVICE - CONSULT NOTE Location: [facility] CVD Interventional/Cath Hospital Day: 0 SUBJECTIVE [...] (TylenoL), 1,000 mg, oral, Q6H PRN, Enrico Knight, LILIBETH, C.N.P., M.S.N., 1,000 mg at 08/03/24 1019 [...] mg (Versed), 0.5 mg, intravenous, Q2 Min PRNArcelia David N, M.D., 0.5 mg at 08/03/24 0911 midazolam (PF) injection 1 mg (Versed), 1 mg, intravenous, Q2 Min PRN, Olu Paniagua M.D. NaCl 0.9% infusion, 20 mL/hr, intravenous, [...] injection 3 mL, 3 mL, intravenous, Q12H LUCINDA, Olu Paniagua M.D. ALLERGIES No Known Allergies VITAL SIGNS [...] 04/12/24 97.7 kg 12/25/15 102 kg I/O 08/01 0701 08/02 0700 08/02 0701 08/03 0700 08/03 0701 08/04 0700 [...] DIAGNOSTICS ECG Pre TAVR ECG Post-TAVR TTE 08/03/24 Final Impressions 1. TTE imaging performed during [...] PERTINENT TELEMETRY EVENTS ASSESSMENT / PLAN Mr. Transburg is a 79 y.o. male with medical [...] AV block and LAFB) - Post TAVR WY prolongation >20 ms # Hypertension # Chronic kidney disease stage 3 # Obesity # Obstructive sleep apnea Post TAVR ECG on our measurement shows WY interval increase >20ms with new WY of 238 ms despite computer reading. We thus decided to proceed with pacemaker implantation given the baseline trifascicular block and worsened WY prolongation after TAVR. We reviewed the details [...] be ordered through the order set in [employer] (search: cardiology ablation/device pre-procedure). Please order a [...] this patient. This case was discussed with clinical science consultant Dr. Lacy. [place] [phone] with any questions or concerns. Alexus Lee M.D., M.P.H. PGY 5 Soil Tester 08/03/24 Cosigned by Jeremy Lacy M.D. at 08/03/2024 12:57 PM BARREL PLANER EL PLANER EL PLANER EL PLANER Associated attestation - Jeremy Lacy M.D. - 08/03/2024 12:57 PM BARREL PLANER I saw and evaluated the patient, participating [...] evidence of nonconducted P waves, however the WY interval is slightly longer compared to baseline, manually measured at 240 milliseconds. His LV function is normal per pre-TAVR echocardiogram. In the setting of his severe pre-existing AV conduction disease and WY prolongation post-valve deployment, I believe that his [...] to goal ACT greater than 250. A 5-Sudanese pigtail catheter is then passed up from [...] back to the ideal imaging plane in PERSIAN. A 26-mm Stewart ZOHRA S3 device is [...] delineate the landing zone. Thoracic aortogram in PERSIAN projection demonstrates no AI or paravalvular leak; [...] scrubbed and present for the entire procedure. EL PLANER * Brief Op Note - Olu Paniagua M.D. - 08/03/2024 8:28 AM CST Images from the original note were not included. PATIENT: Neal Gale : 1945 DATE OF SERVICE: 08/03/2024 Procedure: Successful transfemoral transcatheter aortic valve replacement with a 26 mm Stewart Zohra 3 Ultra valve +2cc additional volume via the right common femoral artery Implant Name Type Inv. Item Serial No. Card Dealer Lot No. LRB No. Used Action VLV ZOHRA S3 ULTRA 26 - [id number] - [id number] Cardiac Valve Prosthesis VLV ZOHRA S3 ULTRA 26 [id number] [employer] N/A 1 Implanted Surgeon(s): Major Barboza M.D., Ph.D. Nelson Jones M.D., Ph.D. Olu Paniagua M.D. Indication: Severe, symptomatic aortic valve stenosis Access Site(s): Right radial artery, 6 Sudanese sheath(s). Removed at the end of the case with TR band placement for compression hemostasis. Right common femoral artery, 14 Sudanese sheath(s). Removed at the end of the case with closure of the arteriotomy site using suture-based vascular closure device(s). Left femoral vein, 6 Sudanese sheath(s). Sutured in at the end of the case to be removed later in recovery. Complications: No Recommendations: -Aspirin 81mg daily indefinitely barring any complications -HRS consult for possible pacemaker implantation -Admission overnight on interventional service Please see clinical science consultant cath operative report for further information. This is available under Document Viewer as Diagnostic Report - Cath/EP. Code status: FULL, until time of discharge If clinical status changes, please contact the proceduralist to discuss reversal of code status. Olu Paniagua M.D. 08/03/24 EL PLANER documented in this encounter Miscellaneous Notes * [...] fascicular block, bifascicular block, with a prolonging WY interval. Electrophysiology was consulted ultimately recommended implantation [...] discharge. He was discharged home to self-care. EL PLANER EL PLANER EL PLANER EL PLANER documented in this encounter Plan of Treatment Upcoming Encounters Date Type Department Care Team (Latest Contact Info) Description 09/20/2024 9:00 AM BARREL PLANER Clinical Communication Virtual Review in [address] [phone] 09/21/2024 11:20 AM BARREL PLANER Appointment Department of Laboratory Medicine and Pathology, [facility] in [address] [phone] Enrico Knight APRN, C.N.Marlo, M.S.N. [address] [place] [phone] 09/21/2024 11:40 AM BARREL PLANER Ancillary Procedure Department of Cardiovascular Medicine in [address] [phone] Enrico Knight APRN, C.N.Marlo, M.S.N. [address] [place] [phone] 09/21/2024 12:15 PM BARREL PLANER Appointment Department of Cardiovascular Diseases in [address] [phone] Enrico Knight APRN, C.N.Marlo, M.S.N. [address] [place] [phone] Discharge Disposition: Home or Self Care 09/22/2024 9:30 AM BARREL PLANER Office Visit Department of Cardiovascular Medicine in [place], [place] [address] [place] [address] Edna Sandra APRN, C.NДмитрий, M.S.N. [address] [place] [phone] Pending Results Name Type Priority Associated Diagnoses Date/Time Cardiac Device Interrogation Implantable Cardiac Device Routine 08/04/2024 8:26 AM BARREL PLANER Scheduled Procedures Name Priority Associated Diagnoses Date/Ti me ENDOSCOPY SLEEP STATE Obstructive Sleep Apnea Adult Scheduled Referrals Name Type Priority Associated Diagnoses Orde r Schedule External referral cardiac rehab program (non-[facility]) Outpatient Referral Routine Prosthesis Aortic Valve Ordered: 08/04/2024 documented as of this encounter Procedures Procedure Name Priority Date/Time Associated Diagnosis Comments CBC WITHOUT DIFFERENTIAL, B Routine 08/04/2024 9:22 AM BARREL PLANER BASIC METABOLIC PANEL, S/P Routine 08/04/2024 9:22 AM BARREL PLANER DX CHEST AP OR PA AND LATERAL 2 VIEWS RAD - Routine (most inpatients and all outpatients) 08/04/2024 8:51 AM BARREL PLANER CAR CARDIAC DEVICE INTERROGATION Routine 08/04/2024 8:26 AM BARREL PLANER Procedure Note - Farmworker GeneralMorgan M.D. - 08/04/2024 8:26 AM CSTThis note [...] was reviewed. ECG Routine 08/04/2024 6:58 AM BARREL PLANER ECG Routine 08/04/2024 5:13 AM BARREL PLANER ACT, POCT, B Routine 08/03/2024 6:04 PM BARREL PLANER HEART RHYTHM PROCEDURE Routine 08/03/2024 3:42 PM BARREL PLANER HEART RHYTHM PROCEDURE Routine 08/03/2024 3:42 PM BARREL PLANER ADULT OXYGEN THERAPY Routine 08/03/2024 1:22 PM BARREL PLANER ADULT OXYGEN THERAPY Routine 08/03/2024 1:22 PM BARREL PLANER ADULT OXYGEN THERAPY Routine 08/03/2024 1:22 PM BARREL PLANER CAR CARDIAC DEVICE INTERROGATION Routine 08/03/2024 11:52 AM BARREL PLANER ECG Semiurgent (Fast, mo st ED patients, some inpatients) 08/03/2024 10:54 AM BARREL PLANER CARDIAC CATHETERIZATION Routine 08/03/2024 9:51 AM BARREL PLANER Stenosis Aortic Valve Acquired CARDIAC CATHETERIZATION Routine 08/03/2024 9:51 AM BARREL PLANER Stenosis Aortic Valve Acquired CARDIAC CATHETERIZATION Routine 08/03/2024 9:51 AM BARREL PLANER Stenosis Aortic Valve Acquired CARDIAC CATHETERIZATION Routine 08/03/2024 9:51 AM BARREL PLANER Stenosis Aortic Valve Acquired (TTE) 2D LIMITED WITH COLOR AND LIMITED DOPPLER Routine 08/03/2024 9:50 AM BARREL PLANER ACT, POCT, B Routine 08/03/2024 9:20 AM BARREL PLANER documented in this encounter Results * (ABNORMAL) CBC without Differential (08/04/2024 9:22 AM BARREL PLANER) Hemoglobin 11.9(L) 13.2 - 16.6 g/dL 08/04/2024 10:14 AM BARREL PLANER DTL Hematocrit 35.2(L) 38.3 - 48.6 % 08/04/2024 10:14 AM BARREL PLANER DTL Erythrocytes 3.66(L) 4.35 - 5.65 x10(12)/L 08/04/2024 10:14 AM BARREL PLANER DTL MCV 96.2 78.2 - 97.9 fL 08/04/2024 10:14 AM BARREL PLANER DTL RBC Distrib Width 12.0 11.8 - 14.5 % 08/04/2024 10:14 AM BARREL PLANER DTL Platelet Count 139 135 - 317 x10(9)/L 08/04/2024 10:14 AM BARREL PLANER DTL Leukocytes 8.9 3.4 - 9.6 x10(9)/L 08/04/2024 10:14 AM BARREL PLANER DTL Blood (Blood, Venous) 08/04/2024 9:22 AM BARREL PLANER 08/04/2024 9:40 AM BARREL PLANER us Enrico Knight APRN C.N.P., M.S.N. LAB BLOOD A DD-ON Final Result [place] [address] [place] [address], [facility] [place] [address] [place] [address] * (ABNORMAL) Basic Metabolic Panel (08/04/2024 9:22 AM BARREL PLANER) Pathologist [facility] Potassium, S 4.3 3.6 - 5.2 mmol/L 08/04/2024 10:57 AM BARREL PLANER DTL Sodium, S 134(L) 135 - 145 mmol/L 08/04/2024 10:57 AM BARREL PLANER DTL Chloride, S 104 98 - 107 mmol/L 08/04/2024 10:57 AM BARREL PLANER DTL Bicarbonate, S 20(L) 22 - 29 mmol/L 08/04/2024 10:57 AM BARREL PLANER DTL Anion Gap 10 7 - 15 08/04/2024 10:57 AM BARREL PLANER DTL BUN (Blood Urea Nitrogen), S 27(H) 8 - 24 mg/dL 08/04/2024 10:57 AM BARREL PLANER DTL Creatinine 1.92(H) 0.74 - 1.35 mg/dL 08/04/2024 10:57 AM BARREL PLANER DTL Estimated GFR (eGFR) 35(L) >=60 mL/min/BSA 08/04/2024 10:57 AM BARREL PLANER DTL Comment: Estimated GFR calculated using the 2020 CKD_EPI creatinine equation. Calcium, Total, S 8.8 8.8 - 10.2 mg/dL 08/04/2024 10:57 AM BARREL PLANER DTL Glucose, S 104 70 - 140 mg/dL 08/04/2024 10:57 AM BARREL PLANER DTL Blood (Blood, Venous) 08/04/2024 9:22 AM BARREL PLANER 08/04/2024 9:54 AM BARREL PLANER Enrico Knight APRN, C.N.P., M.S.N. LAB BLOOD A DD-ON Final Result [facility] [address] [place] [address], [facility] [place] [address] [place] [address] * DX Chest AP or PA and Lateral 2 Views (08/04/2024 8:51 AM BARREL PLANER) Anatomical Region Laterality Modality Chest, Thoracic RST LOS, Tho racic ARZ LOS, Thoracic FLA LOS N/A Digital Radiography Impressions 08/04/2024 8:56 AM BARREL PLANER Since 07/13/2024, new left subclavian pacemaker with leads projecting over the RA and RV. Interval TAVR. Cardiac silhouette size upper limits of normal. Aortic calcifications. Surgical clips RUQ. Chest otherwise negative. Narrative 08/04/2024 8:56 AM BARREL PLANER EXAM: DX CHEST AP OR PA AND LATERAL 2 VIEWS Procedure Note Harry Eason M.D. - 08/04/2024 EXAM: DX CHEST AP OR PA AND LATERAL 2 VIEWS IMPRESSION: Since 07/13/2024, new left subclavian pacemaker with leads projecting overthe RA and RV. Interval TAVR. Cardiac silhouette size upper limits ofnormal. Aortic calcifications. Surgical clips RUQ. Chest otherwisenegative. Chano Mario APRN.NArnaldo., M.S.N. IMG DIAGNOS TIC IMAGING PROCEDURES Final Result * ECG 12 Lead (08/04/2024 6:58 AM BARREL PLANER) Ventricular Rate ECG/Min 60 BPM MUSE WY Interval 230 ms MUSE QRSD Interval 144 ms MUSE QT Interval 456 ms MUSE QTC Interval 456 ms MUSE P [place] 36 degrees MUSE R [place] -82 degrees MUSE T Wave [place] 15 degrees MUSE 08/04/2024 6:58 AM BARREL PLANER 08/04/2024 7:07 AM BARREL PLANER Impressions MUSE - 08/04/2024 7:07 AM BARREL PLANER Atrial-paced rhythm Right bundle branch block with [...] Reviewed by SKYE Agee Enrico Knight APRN, Chano.N.P., M.S.N. ECG ORDERAB LES Final Result MUSE NA * ECG 12 Lead (08/04/2024 5:13 AM BARREL PLANER) Ventricular Rate ECG/Min 62 BPM MUSE WY Interval 204 ms MUSE QRSD Interval 142 ms MUSE QT Interval 444 ms MUSE QTC Interval 450 ms MUSE P [place] 7 degrees MUSE R [place] -83 degrees MUSE T Wave [place] -13 degrees MUSE 08/04/2024 5:13 AM BARREL PLANER 08/04/2024 5:19 AM BARREL PLANER Impressions MUSE - 08/04/2024 5:19 AM BARREL PLANER Sinus rhythm with 1st degree A-V block [...] is now present Reviewed by SKYE Quinones us Chano Powell M.D., M.S. ECG ORDERABLES Final Result Performing Organization Address [facility] Co de Phone Number MUSE NA * ACT (Activated Clotting Time), POCT (08/03/2024 6:04 PM BARREL PLANER) [facility] Activated Clotting Time, POCT [phone] - 139 sec 08/03/2024 6:45 PM BARREL PLANER PCSM Blood (Blood, Venous) 08/03/2024 6:04 PM BARREL PLANER 08/03/2024 6:07 PM BARREL PLANER Enrico Knight APRN, C.N.P., M.S.N. LAB POCT OR DERABLES - DEVICE Final Result Performing Organization Address City/[facility]/ZIP Co de Phone Number POC RST [facility] [address] [place], [place] [address] POC [address] [place] [address] * PPM IMPLANT - DUAL CHAMBER, LEFT BUNDLE PACING (08/03/2024 3:42 PM BARREL PLANER) Anatomical Region Laterality Modality X-Ray Angiograph y 08/03/2024 1:18 PM BARREL PLANER Narrative 08/03/2024 4:22 PM BARREL PLANER For the complete report, see the Order-Level Documents. PROCEDURE TYPES 1. PPM IMPLANT - DUAL CHAMBER 2. 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 The sheath was slit with the [facility] adjustable slitter. 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 The sheath was slit with the [facility] adjustableslitter. The peel-away sheath was removed and [...] DEVICE - NO CHARGE (08/03/2024 11:52 AM BARREL PLANER) Date Time Interrogation Session [facility] Implantable Pulse Generator Card Dealer [employer] [facility] Implantable Pulse Generator Type Pacemaker [facility] Implantable Pulse Generator Model L331 [facility] Implantable Pulse Generator Serial Number [id number] [facility] Implantable Pulse Generator Implant Date 20240803 [facility] Battery Status [facility] Lead Channel Sensing Intrinsic Amplitude 2.600 [facility] Lead Channel Setting Sensing Sensitivity 0.75 [facility] Lead Channel Impedance Value 570 [facility] Lead Channel Pacing Threshold Amplitude 0.700 [facility] Lead Channel Pacing Threshold Pulse Width 0.4 [facility] Lead Channel Measurements Date and Time 20240803 [facility] Lead Channel Setting Pacing Amplitude 3.500 [facility] Lead Channel Setting Pacing Pulse Width 0.4 [facility] Lead Channel Sensing Intrinsic Amplitude 19.500 [facility] Lead Channel Setting Sensing Sensitivity 2.50 [facility] Lead Channel Impedance Value 872 [facility] Lead Channel Pacing Threshold Amplitude 0.400 [facility] Lead Channel Pacing Threshold Pulse Width 0.4 [facility] Lead Channel Measurements Date and Time 20240803 [facility] Lead Channel Setting Pacing Amplitude 3.500 [facility] Lead Channel Setting Pacing Pulse Width 0.4 [facility] Jarad Setting Mode (NBG Code) AAIR-VVI [facility] Jarad Setting Lower Rate Limit 60 [facility] Jarad Setting AT Mode Switch Rate 170 [facility] Jarad Setting Maximum Tracking Rate 120 [facility] Jarad Setting Maximum Sensor Rate 120 [facility] Ajrad Setting PAV Delay 210 [facility] Jarad Setting TRACIE Delay 200 [facility] Zone Setting Type Category AT/AF [facility] Murj Rate 1 170 [facility] Zone Setting Status Monitor [facility] Murj Zone ID 1 [facility] Zone Setting Type Category VT [facility] Murj Rate 1 160 [facility] Zone Setting Status Monitor [facility] Murj Zone ID 2 [facility] Implantable Lead Card Dealer [employer] [facility] Implantable Lead Model 7842-59 [facility] Implantable Lead Location Right Ventricle [facility] Implantable Lead Connection Status Connected [facility] Implantable Lead Serial Number [id number] [facility] Implantable Lead Implant Date 20240731 [facility] Implantable Lead Special Function Lead length: 59.00 cm [facility] Implantable Lead Card Dealer [employer] [facility] Implantable Lead Model 7841-52 [facility] Implantable Lead Location Right [facility] Implantable Lead Connection Status Connected [facility] Implantable Lead Serial Number [id number] [facility] Implantable Lead Implant Date [id number] [facility] Implantable Lead Special Function Lead length: 52.00 cm [facility] Anatomical Region Laterality Modality Other 08/03/2024 3:56 PM [employer] Impressions 08/03/2024 3:56 PM [employer] Encounter Impression: Title: New Device Implanted * New Device Implant Date: 08/03/2024 * Device implanted by Dr. Powell at [facility] * Programmed parameters were reviewed * [...] * Device implanted by Dr. Powell at [facility] * Programmed parameters were reviewed * [...] * ECG 12 Lead (08/03/2024 10:54 AM BARREL PL[employer]ER) Ventricular Rate ECG/Min 61 BPM MUSE [place] Interval 222 ms MUSE QRSD Interval 150 ms MUSE QT Interval 490 ms MUSE QTC Interval 493 ms MUSE P [place] 95 degrees MUSE R [place] -86 degrees MUSE T Wave [place] -46 degrees MUSE 08/03/2024 10:5 4 AM [employer] 08/03/2024 11:54 AM [employer] Impressions MUSE - 08/03/2024 11:22 AM [employer] Sinus bradycardia with 1st degree A-V block [...] change was found Reviewed by SKYE Lopez Enrico Knight APRN, C.N.P., M.S.N. ECG ORDERAB LES Edited Result - Final MUSE NA * TRANSCATHETER AORTIC VALVE REPLACEMENT, AORTIC ROOT AORTOGRAM, TEMPORARY PACEMAKER INSERTION, LEFT HEART CATHETERIZATION (08/03/2024 9:51 AM [employer]REL [employer]ER) Anatomical Region Laterality Modality X-Ray Angiograph y 08/03/2024 8:59 AM [employer] Narrative 08/04/2024 10:06 AM BARREL [employer]ER For the complete report, see the Order-Level [...] artery, and left femoral vein, and 6 Sudanese sheaths were inserted. The right femoral artery access was pre-closed using two suture-based vascular closure devices and upsized to an 8 Sudanese sheath. Therapeutic heparin was administered. A temporary [...] thoracic aorta, we then exchanged the 8 Sudanese sheath for the 14 Sudanese expandable Stewart sheath. An AL1 was advanced with a J wire to the level of the aortic valve and a straight wire was used to cross into the left ventricle. A 6 Sudanese pigtail catheter was used to measure an [...] femoral artery, and left femoralvein, and 6 Sudanese sheaths were inserted. The right femoral artery accesswas pre-closed using two suture-based vascular closure devices and upsizedto an 8 Sudanese sheath. Therapeutic heparin was administered. A temporary [...] thoracic aorta, we then exchanged the 8 Sudanese sheathfor the 14 Sudanese expandable Stewart sheath. An AL1 was advanced with a Jwire to the level of the aortic valve and a straight wire was used tocross into the left ventricle. A 6 Sudanese pigtail catheter was used tomeasure an LVEDP. [...] Right radial artery angiogram was taken [facility], demonstrating a recurrent radial artery. The radial sheath wasremoved with placement of a TR band. The patient tolerated the procedurewell with no intraprocedural complications. RADIATION DOSE DATA Procedure cumulative skin dose (mGy): 412.32 Procedure cumulative dose area product (Gy-cm2): 48.90 Fluoro Time (Min): 6.95 CONTRAST DOSE DATA iohexoL 350 mg iodine/mL solution (Omnipaque): 60mL For the complete report, see the Order-Level Documents. us Danyell Jones., Ph.D. CV CARDIAC CATH PROCEDURES Final Result * (TTE) 2D LIMITED WITH COLOR AND LIMITED DOPPLER (08/03/2024 9:50 AM BARREL PL[employer]ER) [facility] Ejection Fraction 55 MC CV EIMS Left [...] Region Laterality Modality Other 08/03/2024 7:33 AM BARREL [employer]ER Impressions 08/03/2024 10:00 AM BARREL PL[employer]ER Echo performed in the Cardiac Cath Laboratory. [...] the Order-Level Documents. Narrative 08/03/2024 10:00 AM BARREL PL[employer]ER For the complete report, see the Order-Level [...] CV ECHO PROCEDURES Mini rich Result * (ABNORMAL) ACT (Activated Clotting Time), POCT (08/03/2024 9:20 AM BARREL PLANER) Pathologist [facility] Activated Clotting Time, POCT 195(H) 84 - 139 sec 08/03/2024 9:21 AM BARREL PLANER PCSM Blood 08/03/2024 9:20 AM BARREL PL[employer]ER 08/03/2024 9:21 AM BARREL PLANER us Unknown Provider LAB POCT ORDERABLES - DEVICE Fi nal Result POC [facility] [address] [place] [address], [place] [facility] [place] POC [address] [place] [address] documented in this encounter Visit Diagnoses Not on filedocumented in this encounter Admitting Diagnoses Diagnosis Stenosis [...] 1014, Postprocedure (CV) Given 08/04/2024 11:39 AM BARREL PL[employer]ER 1,000 mg Given 08/04/2024 5:31 AM [employer]REL [employer]ER 1,000 mg Given 08/03/2024 11:48 PM [employer]REL [employer] 1,000 mg aspirin chewable tablet 81 mg 81 mg, oral, Daily, First dose on Keyla 08/04/24 at 0900 Given 08/04/2024 10:50 AM BARREL [employer]ER 81 mg cholestyramine-aspartame 4 gram packet 1 packet (Prevalite) 1 packet, oral, 2 times daily before midday and evening meals, First dose on Keyla 08/04/24 at 1100, Pt own med Mix one 4 gram packet in 60 mL water then administer ordered dose. Administer other oral medications at least 1 hour before or 4 to 6 hours after cholestyramine, due to the potential to bind to orally administered drugs. Given 08/04/2024 10:41 AM BARREL PL[employer]ER 1 packet fentaNYL injection 25 mcg (Sublimaze) [...] oral analgesics or oral analgesics are ineffective iohexoL 300 mg iodine/mL solution (Omnipaque) Code/trauma/sedation medication, Starting on Thu08/03/24 at 1407, Intraprocedure (CV) Given 08/03/2024 2:07 PM [employer]REL [employer]ER 2 mL lidocaine 10 mg/mL (1 %) injection (Xylocaine) Code/trauma/sedation medication, Starting on Thu08/03/24 at 1322, Intraprocedure (CV) Given 08/03/2024 1:22 PM BARREL [employer]ER 17 mL Left Chest pantoprazole DR tablet 40 mg (Protonix) 40 mg, oral, Daily before morning meal, First dose on Keyla 08/04/24 at 0700, pantoprazole 40 mg oral daily was interchanged for omeprazole 20 or 40 mg oral daily Swallow whole. Do NOT crush, chew, or split tablet. Given 08/04/2024 5:34 AM [employer]REL [employer]ER 40 mg documented in this encounter Active and Recently Administered Medications Times are shown in [employer]REL [employer]ER. Scheduled Medication Order 08/02/2024 08/03/2024 08/04/2024 aspirin chewable tablet 81 mg 81 mg, oral, Daily, First dose on Keyla 08/04/24 at 0900 1050 (Given - Provid er: [...] 25 mg, oral, Daily, First dose on Keyla [...] potential to bind to orally administered drugs. 1826 (Given - Provider: Destiney Patrick R.N. - [...] 20 mg, oral, Daily, First dose on Thu08/04/24 [...] (CV) 1019 (Given - Provider: Shira Gonsalves R.N.)1636 (Given - Provider: Destiney Patrick R.N.)2348 (Given - Provider: Soheila Sanchez R.N.) 0531 (Given - Provider: Soheila Sanchez R.N.)1139 (Given - Provider: Farhan Jean R.N.) atropine injection 0.5 mg 0.5 mg, intravenous, Every 5 min PRN, Vasovagal response, Starting on Thu08/03/24 at 1321, For 4 doses, Postprocedure (CV) ceFAZolin injection (Ancef) (CANCELED) Code/trauma/sedation medication, Starting on Thu08/03/24 at 0843, Intraprocedure (CV) 0843 (Given - Provider: Daniela Lay R.N.) fentaNYL injection 25 mcg (Sublimaze) (CANCELED) 25 [...] breaths/minute. 0840 (Given - Provider: Daniela Lay R.N.)0848 (Given - Provider: Daniela Lay R.N.)0905 (Given - Provider: Daniela Lay R.N.)0911 (Given - Provider: Daniela Lay R.N.) naloxone [...] ineffective documented in this encounter Care Teams Outside Rigger Relationship Specialty Start Date End Date Elsewhere, Pcp PCP - General Internal Medicine 08/03/24 documented as of this encounter
--- OUTSIDE RECORDS SUMMARY | 2024-08-08 15:12 | XMS_ITS | Encounter Summary ---
Author Organization [facility] Address [address] [place] [id number] Care Team Providers Care Pharmaceutical Analyst Name Role Phone Elsewhere, Pcp Primary Care Provider Unavailabl e Encounter Details Date Type Department Care Team (Late st Contact Info) Description 08/03/2024 8:00 AM LITERARY AGENT - 08/03/2024 11:46 AM LITERARY AGENT Surgery Division of Cardiovascular Diseases in [place], [place] [address] [place] [phone] Nelson Jones M.D., Ph.D. [address] [place] [phone] CV TRANSCATHETER AORTIC VALVE REPLACEMENT Social History Tobacco Use Types Packs/Day Years Used Date Smoking Tobacco: Never Smokeless Tobacco: Never [facility] Utilities Answer Date Recorded In the past 12 months has [facility] [employer], gas, oil, or water [employer] threatened to shut off services in your [...] your living situation today? I have a [facility] place to live 08/03/2024 Sex and Gender Information Value Date Recorded Sex Assigned at Male 07/11/2024 10:53 AM LITERARY AGENT Legal Sex Male 9:21 AM LITERARY AGENT Gender Identity Male 07/11/2024 10:53 AM LITERARY AGENT Sexual Orientation Straight 07/11/2024 10 :53 AM LITERARY AGENT documented as of this encounter Last Filed Vital Signs Vital Sign Reading Time Taken Comments Blood Pressure 141/57 08/03/2024 11:45 AM LITERARY AGENT Pulse 51 08/03/2024 11:45 AM LITERARY AGENT Temperature 37.1 C (98.8 F) 08/03/2024 6:10 AM LITERARY AGENT Respiratory Rate 13 08/03/2024 7:15 AM LITERARY AGENT Oxygen Saturation 99% 08/03/2024 11:45 AM LITERARY AGENT Inhaled Oxygen Concentration - - Weight 93.7 kg (206 lb 9.1 oz) 08/03/2024 6:10 A M LITERARY AGENT Height 170.5 cm (5' 7.13) 08/03/2024 6:10 AM CS T Body Mass Index 32.3 08/03/2024 6:10 AM LITERARY AGENT documented in this encounter Discharge Summaries * Rocio Bailey APRN, C.N.P., D.N.P., M.S.N. - 08/04/2024 8:49 AM LITERARY AGENT [facility] DISCHARGE SUMMARY DATE OF [...] DR Radiology 09/21/2024 11:20 AM LAB BLOOD [facility] Laboratory Medicine 09/21/2024 11:40 AM ECG 01 [facility] CVD Cardiovascular Disease 09/21/2024 12:15 PM ECHO [...] fascicular block, bifascicular block, with a prolonging MN interval. Electrophysiology was consulted ultimately recommended implantation [...] self-care. RESTRICTIONS: You were discharged from the [facility] CVD Interventional/Cath Service. Please identify [...] APRN, C.N.P., D.N.P., M.S.N. 08/04/24 8:49 AM LITERARY AGENT [facility] CVD Interventional/Cath RARY AGENT documented in this encounter Discharge Instructions * Discharge Instructions* Madeline Wills R.N. - 08/03/2024 7:33 AM LITERARY AGENT You were discharged from the [facility] CVD Interventional/Cath Service. Please identify [...] (usually 3-4 weeks). Pain: You may use dudy-qhi-twyvbin Extra Strength Tylenol (acetaminophen) 500 mg tablets, [...] us to request this transfer at or [phone]. Remote Transmitter: You will be provided with [...] verify this initial connection by calling the [facility] at or [phone]; Thursday - Thursday, 8:00 AM - 4:30 PM LITERARY AGENT. Please contact your device company with concerns or issues regarding your home transmitter. [employer] [phone] ALWAYS call 911 in the event of an emergency. RARY AGENT RARY AGENT RARY AGENT RARY AGENT * Attachments The following attachments cannot be sent through Care Everywhere. * Amoxicillin (By mouth) (Finnish) * Aspirin (By mouth) (Finnish) documented in this encounter Medications at Time [...] RHYTHM CONSULT SERVICE - PROGRESS NOTE Location: [id number] [facility] CVD Interventional/Cath Hospital Day: 1 [...] AV block and LAFB) - Post TAVR MN prolongation >20 ms # Hypertension # Chronic kidney disease stage 3 # Obesity # Obstructive sleep apnea Post TAVR ECG on our measurement shows MN interval increase >20ms with new MN of 238 ms despite computer reading. We thus decided to proceed with pacemaker implantation given the baseline trifascicular block and worsened MN prolongation after TAVR. We underwent successful implantation [...] few weeks. This case was discussed with oracle wms consultant Dr. Lacy. [place] [phone] with any questions or concerns. We will sign off at this time. Please ensure he has cardiology follow up to ensure they review remote device interrogations. Alexus Lee M.D., M.P.H. PGY5 Mine Foreman 08/04/24 RARY AGENT documented in this encounter H&P Notes * [...] Glomerular Filtration Rate (GFR) 45 To 59 ([facility]) #6 Hyperlipidemia #7 Hypertensive Chronic Kidney Disease [...] left-sided dual-chamber permanent pacemaker system noting further MN prolongation post valve deployment. Protamine was not [...] Learning needs assessment done. Barriers assessed (cultural, taoism/spiritual, motivational, physical/cognitive, language, emotional). Ready to learn. Patient has no barriers. Explained diagnosis and treatment options. MARGIN CODE Total time: 75 min. Counseling Time: Greater than 50%. Enrico Knight APRN, C.N.P., M.S.N. 08/03/24 RARY AGENT documented in this encounter Consult Notes * [...] the cardiac rehab program. Patient referred to: [facility] [address] [place] [address] Recommend that the patient check with insurance company to verify coverage of the cost of cardiac rehabilitation program visits. RARY AGENT * Linda Lee M.D., M.P.H. - 08/03/2024 11:12 AM CSTAssociated Order(s): IP CONSULT TO CARDIOLOGY Images from the original note were not included. HEART RHYTHM CONSULT SERVICE - CONSULT NOTE Location: [facility] CVD Interventional/Cath Hospital Day: 0 SUBJECTIVE REASON [...] the procedure. 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 We thus decided to proceed with pacemaker implantation given the baseline trifascicular block and worsened MN prolongation after TAVR. We reviewed the details [...] be ordered through the order set in [employer] (search: cardiology ablation/device pre-procedure). Please order a [...] this patient. This case was discussed with oracle wms consultant Dr. Lacy. [place] [phone] with any questions or concerns. Alexus Lee M.D., M.P.H. PGY 5 Mine Foreman 08/03/24 Cosigned by Jeremy Lacy M.D. at 08/03/2024 12:57 PM LITERARY AGENT RARY AGENT RARY AGENT RARY AGENT Associated attestation - Jeremy Lacy M.D. - 08/03/2024 12:57 PM LITERARY AGENT I saw and evaluated the patient, participating [...] evidence of nonconducted P waves, however the MN interval is slightly longer compared to baseline, manually measured at 240 milliseconds. His LV function is normal per pre-TAVR echocardiogram. In the setting of his severe pre-existing AV conduction disease and MN prolongation post-valve deployment, I believe that his [...] to goal ACT greater than 250. A 5-East [place]orese pigtail catheter is then passed up from [...] back to the ideal imaging plane in ZAMBIAN. A 26-mm Stewart ZOHRA S3 device is [...] delineate the landing zone. Thoracic aortogram in [place] projection demonstrates no AI or paravalvular leak; [...] scrubbed and present for the entire procedure. RARY AGENT * Brief Op Note - Olu Paniagua M.D. - 08/03/2024 8:28 AM CST Images from the original note were not included. PATIENT: Neal Gale : 1945 DATE OF SERVICE: 08/03/2024 Procedure: Successful transfemoral transcatheter aortic valve replacement with a 26 mm Stewart Zohra 3 Ultra valve +2cc additional volume via the right common femoral artery Implant Name Type Inv. Item Serial No. Student Officer Lot No. LRB No. Used Action VLV ZOHRA S3 ULTRA 26 - [id number] - [id number] Cardiac Valve Prosthesis VLV ZOHRA S3 ULTRA 26 [id number] Stewart Proactive Comfortciences N/A 1 Implanted Surgeon(s): Major Barboza M.D., Ph.D. Nelson Jones M.D., Ph.D. Olu Paniagua M.D. Indication: Severe, symptomatic aortic valve stenosis Access Site(s): Right radial artery, 6 East Timorese sheath(s). Removed at the end of the case with TR band placement for compression hemostasis. Right common femoral artery, 14 [place]se sheath(s). Removed at the end of the case with closure of the arteriotomy site using suture-based vascular closure device(s). Left femoral vein, 6 [place]se sheath(s). Sutured in at the end of the case to be removed later in recovery. Complications: No Recommendations: -Aspirin 81mg daily indefinitely barring any complications -HRS consult for possible pacemaker implantation -Admission overnight on interventional service Please see oracle wms consultant cath operative report for further information. This is available under Document Viewer as Diagnostic Report - Cath/EP. Code status: FULL, until time of discharge If clinical status changes, please contact the proceduralist to discuss reversal of code status. Olu Paniagua M.D. 08/03/24 RARY AGENT documented in this encounter Miscellaneous Notes * [...] fascicular block, bifascicular block, with a prolonging MN interval. Electrophysiology was consulted ultimately recommended implantation [...] discharge. He was discharged home to self-care. RARY AGENT RARY AGENT RARY AGENT RARY AGENT documented in this encounter Plan of Treatment Upcoming Encounters Date Type Department Care Team (Latest Contact Info) Description 09/20/2024 9:00 AM LITERARY AGENT Clinical Communication Virtual Review in [address] [phone] 09/21/2024 11:20 AM LITERARY AGENT Appointment Department of Laboratory Medicine and Pathology, [facility] in [address] [phone] Enrico Knight APRN, C.N.Marlo, M.S.N. [address] [place] [phone] 09/21/2024 11:40 AM LITERARY AGENT Ancillary Procedure Department of Cardiovascular Medicine in [address] [phone] Enrico Knight APRN, C.N.Marlo, M.S.N. [address] [place] [phone] 09/21/2024 12:15 PM LITERARY AGENT Appointment Department of Cardiovascular Diseases in [address] [phone] Enrico Knight APRN, C.N.Marlo, M.S.N. [address] [place] [phone] Discharge Disposition: Home or Self Care 09/22/2024 9:30 AM LITERARY AGENT Office Visit Department of Cardiovascular Medicine in [place], [place] [address] [place] [phone] Edna Sandra APRN, C.NДмитрий, M.S.N. [address] [place] [phone] Pending Results Name Type Priority Associated Diagnoses Date/Time Cardiac Device Interrogation Implantable Cardiac Device Routine 08/04/2024 8:26 AM LITERARY AGENT Scheduled Procedures Name Priority Associated Diagnoses Date/Ti me ENDOSCOPY SLEEP STATE Obstructive Sleep Apnea Adult Scheduled Referrals Name Type Priority Associated Diagnoses Orde r Schedule External referral cardiac rehab program (non-[facility]) Outpatient Referral Routine Prosthesis Aortic Valve Ordered: 08/04/2024 documented as of this encounter Procedures Procedure Name Priority Date/Time Associated Diagnosis Comments CBC WITHOUT DIFFERENTIAL, B Routine 08/04/2024 9:22 AM LITERARY AGENT BASIC METABOLIC PANEL, S/P Routine 08/04/2024 9:22 AM LITERARY AGENT DX CHEST AP OR PA AND LATERAL 2 VIEWS RAD - Routine (most inpatients and all outpatients) 08/04/2024 8:51 AM LITERARY AGENT CAR CARDIAC DEVICE INTERROGATION Routine 08/04/2024 8:26 AM LITERARY AGENT Procedure Note - Professor Of FloricultureMorgan M.D. - 08/04/2024 8:26 AM CSTThis note [...] was reviewed. ECG Routine 08/04/2024 6:58 AM LITERARY AGENT ECG Routine 08/04/2024 5:13 AM LITERARY AGENT ACT, POCT, B Routine 08/03/2024 6:04 PM LITERARY AGENT HEART RHYTHM PROCEDURE Routine 08/03/2024 3:42 PM LITERARY AGENT HEART RHYTHM PROCEDURE Routine 08/03/2024 3:42 PM LITERARY AGENT ADULT OXYGEN THERAPY Routine 08/03/2024 1:22 PM LITERARY AGENT ADULT OXYGEN THERAPY Routine 08/03/2024 1:22 PM LITERARY AGENT ADULT OXYGEN THERAPY Routine 08/03/2024 1:22 PM LITERARY AGENT CAR CARDIAC DEVICE INTERROGATION Routine 08/03/2024 11:52 AM LITERARY AGENT ECG Semiurgent (Fast, mo st ED patients, some inpatients) 08/03/2024 10:54 AM LITERARY AGENT CARDIAC CATHETERIZATION Routine 08/03/2024 9:51 AM LITERARY AGENT Stenosis Aortic Valve Acquired CARDIAC CATHETERIZATION Routine 08/03/2024 9:51 AM LITERARY AGENT Stenosis Aortic Valve Acquired CARDIAC CATHETERIZATION Routine 08/03/2024 9:51 AM LITERARY AGENT Stenosis Aortic Valve Acquired CARDIAC CATHETERIZATION Routine 08/03/2024 9:51 AM LITERARY AGENT Stenosis Aortic Valve Acquired (TTE) 2D LIMITED WITH COLOR AND LIMITED DOPPLER Routine 08/03/2024 9:50 AM LITERARY AGENT ACT, POCT, B Routine 08/03/2024 9:20 AM LITERARY AGENT TRANSCATHETER AORTIC VALVE REPLACEMENT TRANS FEMORAL 08/03/2024 7:58 AM LITERARY AGENT Stenosis Aortic Valve Acquired documented in this encounter Results * (ABNORMAL) CBC without Differential (08/04/2024 9:22 AM LITERARY AGENT) Hemoglobin 11.9(L) 13.2 - 16.6 g/dL 08/04/2024 10:14 AM LITERARY AGENT DTL Hematocrit 35.2(L) 38.3 - 48.6 % 08/04/2024 10:14 AM LITERARY AGENT DTL Erythrocytes 3.66(L) 4.35 - 5.65 x10(12)/L 08/04/2024 10:14 AM LITERARY AGENT DTL MCV 96.2 78.2 - 97.9 fL 08/04/2024 10:14 AM LITERARY AGENT DTL RBC Distrib Width 12.0 11.8 - 14.5 % 08/04/2024 10:14 AM LITERARY AGENT DTL Platelet Count 139 135 - 317 x10(9)/L 08/04/2024 10:14 AM LITERARY AGENT DTL Leukocytes 8.9 3.4 - 9.6 x10(9)/L 08/04/2024 10:14 AM LITERARY AGENT DTL Blood (Blood, Venous) 08/04/2024 9:22 AM LITERARY AGENT 08/04/2024 9:40 AM LITERARY AGENT Enrico Knight APRN, C.N.P., M.S.N. LAB BLOOD A DD-ON Final Result [facility] [address] [place] [address], [facility] [address] [place] [address] * (ABNORMAL) Basic Metabolic Panel (08/04/2024 9:22 AM LITERARY AGENT) Potassium, S 4.3 3.6 - 5.2 mmol/L 08/04/2024 10:57 AM LITERARY AGENT DTL Sodium, S 134(L) 135 - 145 mmol/L 08/04/2024 10:57 AM LITERARY AGENT DTL Chloride, S 104 98 - 107 mmol/L 08/04/2024 10:57 AM LITERARY AGENT DTL Bicarbonate, S 20(L) 22 - 29 mmol/L 08/04/2024 10:57 AM LITERARY AGENT DTL Anion Gap 10 7 - 15 08/04/2024 10:57 AM LITERARY AGENT DTL BUN (Blood Urea Nitrogen), S 27(H) 8 - 24 mg/dL 08/04/2024 10:57 AM LITERARY AGENT DTL Creatinine 1.92(H) 0.74 - 1.35 mg/dL 08/04/2024 10:57 AM LITERARY AGENT DTL Estimated GFR (eGFR) 35(L) >=60 mL/min/BSA 08/04/2024 10:57 AM LITERARY AGENT DTL Comment: Estimated GFR calculated using the 2020 CKD_EPI creatinine equation. Calcium, Total, S 8.8 8.8 - 10.2 mg/dL 08/04/2024 10:57 AM LITERARY AGENT DTL Glucose, S 104 70 - 140 mg/dL 08/04/2024 10:57 AM LITERARY AGENT DTL Blood (Blood, Venous) 08/04/2024 9:22 AM LITERARY AGENT 08/04/2024 9:54 AM LITERARY AGENT Chano Mario APRN.N.P., M.S.N. LAB BLOOD A DD-ON Final Result [facility] [address] [place] [address], [facility] [address] [place] [address] * DX Chest AP or PA and Lateral 2 Views (08/04/2024 8:51 AM LITERARY AGENT) Anatomical Region Laterality Modality Chest, Thoracic RST LOS, Tho racic ARZ LOS, Thoracic FLA LOS N/A Digital Radiography Impressions 08/04/2024 8:56 AM LITERARY AGENT Since 07/13/2024, new left subclavian pacemaker with leads projecting over the RA and RV. Interval TAVR. Cardiac silhouette size upper limits of normal. Aortic calcifications. Surgical clips RUQ. Chest otherwise negative. Narrative 08/04/2024 8:56 AM LITERARY AGENT EXAM: DX CHEST AP OR PA AND LATERAL 2 VIEWS Procedure Note Harry Eason M.D. - 08/04/2024 EXAM: DX CHEST AP OR PA AND LATERAL 2 VIEWS IMPRESSION: Since 07/13/2024, new left subclavian pacemaker with leads projecting overthe RA and RV. Interval TAVR. Cardiac silhouette size upper limits ofnormal. Aortic calcifications. Surgical clips RUQ. Chest otherwisenegative. Chano Mario APRN.N.P., M.S.N. IMG DIAGNOS TIC IMAGING PROCEDURES Final Result * ECG 12 Lead (08/04/2024 6:58 AM LITERARY AGENT) Ventricular Rate ECG/Min 60 BPM MUSE MN Interval 230 ms MUSE QRSD Interval 144 ms MUSE QT Interval 456 ms MUSE QTC Interval 456 ms MUSE P [place] 36 degrees MUSE R [place] -82 degrees MUSE T Wave [place] 15 degrees MUSE 08/04/2024 6:58 AM LITERARY AGENT 08/04/2024 7:07 AM LITERARY AGENT Impressions MUSE - 08/04/2024 7:07 AM LITERARY AGENT Atrial-paced rhythm Right bundle branch block with [...] * ECG 12 Lead (08/04/2024 5:13 AM LITERARY AGENT) Ventricular Rate ECG/Min 62 BPM MUSE MN Interval 204 ms MUSE QRSD Interval 142 ms MUSE QT Interval 444 ms MUSE QTC Interval 450 ms MUSE P [place] 7 degrees MUSE R [place] -83 degrees MUSE T Wave [place] -13 degrees MUSE 08/04/2024 5:13 AM LITERARY AGENT 08/04/2024 5:19 AM LITERARY AGENT Impressions MUSE - 08/04/2024 5:19 AM LITERARY AGENT Sinus rhythm with 1st degree A-V block [...] ECG ORDERABLES Final Result Performing Organization Address [facility] de Phone Number MUSE NA * ACT (Activated Clotting Time), POCT (08/03/2024 6:04 PM LITERARY AGENT) Activated Clotting Time, POCT [phone] - 139 sec 08/03/2024 6:45 PM LITERARY AGENT PCSM Blood (Blood, Venous) 08/03/2024 6:04 PM LITERARY AGENT 08/03/2024 6:07 PM LITERARY AGENT us Enrico Knight APRN, C.N.P., M.S.N. LAB POCT OR DERABLES - DEVICE Final Result POC RST [facility] [address] [place] [address], [facility] PCSM [facility] [place] POC [address] [place] [address] * PPM IMPLANT - DUAL CHAMBER, LEFT BUNDLE PACING (08/03/2024 3:42 PM LITERARY AGENT) Anatomical Region Laterality Modality X-Ray Angiograph y 08/03/2024 1:18 PM LITERARY AGENT Narrative 08/03/2024 4:22 PM LITERARY AGENT For the complete report, see the Order-Level Documents. PROCEDURE TYPES 1. PPM IMPLANT - DUAL CHAMBER 2. 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 The sheath was slit with the BeFunk[employer] adjustable slitter. 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 The sheath was slit with the appAttachtronic adjustableslitter. The peel-away sheath was removed and [...] DEVICE - NO CHARGE (08/03/2024 11:52 AM LITERARY AGENT) Date Time Interrogation Session [id number] [facility] Implantable Pulse Generator Student [employer] [facility] Implantable Pulse Generator Type Pacemaker [facility] Implantable Pulse Generator Model L331 [facility] Implantable Pulse Generator Serial Number [id number] [facility] Implantable Pulse Generator Implant Date 20240803 [facility] Battery Status [facility] Lead Channel Sensing Intrinsic Amplitude 2.600 [facility] Lead Channel Setting Sensing Sensitivity 0.75 [facility] Lead Channel Impedance Value 570 [facility] Lead Channel Pacing Threshold Amplitude 0.700 [facility] Lead Channel Pacing Threshold Pulse Width 0.4 [facility] Lead Channel Measurements Date and Time 20240803 [facility] Lead Channel Setting Pacing Amplitude 3.500 [facility] Lead Channel Setting Pacing Pulse Width 0.4 [facility] Lead Channel Sensing Intrinsic Amplitude 19.500 [facility] Lead Channel Setting Sensing Sensitivity 2.50 [facility] Lead Channel Impedance Value 872 [facility] Lead Channel Pacing Threshold Amplitude 0.400 [facility] Lead Channel Pacing Threshold Pulse Width 0.4 [facility] Lead Channel Measurements Date and Time 20240803 [facility] Lead Channel Setting Pacing Amplitude 3.500 [facility] Lead Channel Setting Pacing Pulse Width 0.4 [facility] Jarad Setting Mode (NBG Code) AAIR-VVI [facility] Jarad Setting Lower Rate Limit 60 [facility] Jarad Setting AT Mode Switch Rate 170 [facility] Jarad Setting Maximum Tracking Rate 120 [facility] Jarad Setting Maximum Sensor Rate 120 [facility] Jarad Setting PAV Delay 210 [facility] Jarad Setting TRACIE Delay 200 [...] 2 [facility] Implantable Lead Student Officer [employer] [facility] Implantable Lead Model 7842-59 [facility] Implantable Lead Location Right Ventricle [facility] Implantable Lead Connection Status Connected [facility] Implantable Lead Serial Number [id number] [facility] Implantable Lead Implant Date 20240731 [facility] Implantable Lead Special Function Lead length: 59.00 cm [facility] Implantable Lead Student Officer [employer] [facility] Implantable Lead Model 7841-52 [facility] Implantable Lead Location Right Atrium [facility] Implantable Lead Connection Status Connected [facility] Implantable Lead Serial Number [id number] [facility] Implantable Lead Implant Date 20240731 [facility] Implantable Lead Special Function Lead length: 52.00 cm [facility] Anatomical Region Laterality Modality Other 08/03/2024 3:56 PM LITERARY AGENT Impressions 08/03/2024 3:56 PM LITERARY AGENT Encounter Impression: Title: New Device Implanted * New Device Implant Date: 08/03/2024 * Device implanted by Dr. Powell at [facility] * Programmed parameters were reviewed * [...] * Device implanted by Dr. Powell at [facility] * Programmed parameters were reviewed * Underlying [...] sensing amplitude and pacingthreshold data was reviewed. us Katie Mike APRN, C.N.P., D.N.P. CV IMPLANT ABLE CARDIAC DEVICE Final Result * ECG 12 Lead (08/03/2024 10:54 AM LITERARY AGENT) Ventricular Rate ECG/Min 61 BPM MUSE MN Interval 222 ms MUSE QRSD Interval 150 ms MUSE QT Interval 490 ms MUSE QTC Interval 493 ms MUSE P [place] 95 degrees MUSE R [place] -86 degrees MUSE T Wave [place] -46 degrees MUSE 08/03/2024 10:5 4 AM LITERARY AGENT 08/03/2024 11:54 AM LITERARY AGENT Impressions MUSE - 08/03/2024 11:22 AM LITERARY AGENT Sinus bradycardia with 1st degree A-V block [...] change was found Reviewed by SKYE Lopez us Cornelia Mario APRNNDimpleP., M.S.N. ECG ORDERAB LES Edited Result - Final MUSE NA * TRANSCATHETER AORTIC VALVE REPLACEMENT, AORTIC ROOT AORTOGRAM, TEMPORARY PACEMAKER INSERTION, LEFT HEART CATHETERIZATION (08/03/2024 9:51 AM LITERARY AGENT) Anatomical Region Laterality Modality X-Ray Angiograph y 08/03/2024 8:59 AM LITERARY AGENT Narrative 08/04/2024 10:06 AM LITERARY AGENT For the complete report, see the Order-Level [...] artery, and left femoral vein, and 6 [place] sheaths were inserted. The right femoral artery access was pre-closed using two suture-based vascular closure devices and upsized to an 8 [place] sheath. Therapeutic heparin was administered. A temporary [...] thoracic aorta, we then exchanged the 8 [place] sheath for the 14 [place] expandable Stewart sheath. An AL1 was advanced with a J wire to the level of the aortic valve and a straight wire was used to cross into the left ventricle. A 6 [place] pigtail catheter was used to measure an [...] femoral artery, and left femoralvein, and 6 [place] sheaths were inserted. The right femoral artery accesswas pre-closed using two suture-based vascular closure devices and upsizedto an 8 [place] sheath. Therapeutic heparin was administered. A temporary [...] thoracic aorta, we then exchanged the 8 [place] sheathfor the 14 [place] expandable Stewart sheath. An AL1 was advanced with a Jwire to the level of the aortic valve and a straight wire was used tocross into the left ventricle. A 6 [place] pigtail catheter was used tomeasure an LVEDP. [...] [facility] a [facility] radial artery. The [...] report, see the Order-Level Documents. us Danyell Walsh, Ph.D. CV CARDIAC CATH PROCEDURES Final Result * (TTE) 2D LIMITED WITH COLOR AND LIMITED DOPPLER (08/03/2024 9:50 AM LITERARY AGENT) Ejection Fraction 55 MC CV EIMS Left [...] Region Laterality Modality Other 08/03/2024 7:33 AM LITERARY AGENT Impressions 08/03/2024 10:00 AM LITERARY AGENT Echo performed in the Cardiac Cath Laboratory. [...] the Order-Level Documents. Narrative 08/03/2024 10:00 AM LITERARY AGENT For the complete report, see the Order-Level [...] (Activated Clotting Time), POCT (08/03/2024 9:20 AM LITERARY AGENT) [facility] Activated Clotting Time, POCT 195(H) 84 - 139 sec 08/03/2024 9:21 AM LITERARY AGENT PCSM Blood 08/03/2024 9:20 AM LITERARY AGENT 08/03/2024 9:21 AM LITERARY AGENT us Unknown Provider LAB POCT ORDERABLES - DEVICE Fi nal Result POC RST [facility] INPATIENT [facility] [address] [place] [address], [facility] PCSM [facility] [place] POC [address] [place] [address] documented in this encounter Visit Diagnoses Diagnosis [...] Adult Obesity Body Mass Index 30-39.9 Adult Stenosis Aortic Valve Acquired documented in this [...] 1014, Postprocedure (CV) Given 08/04/2024 11:39 AM LITERARY AGENT 1,000 mg Given 08/04/2024 5:31 AM LITERARY AGENT 1,000 mg Given 08/03/2024 11:48 PM LITERARY AGENT 1,000 mg aspirin chewable tablet 81 mg 81 mg, oral, Daily, First dose on Keyla 08/04/24 at 0900 Given 08/04/2024 10:50 AM LITERARY AGENT 81 mg ceFAZolin injection (Ancef) Code/trauma/sedation medication, Starting on Thu08/03/24 at 0843, Intraprocedure (CV) Given 08/03/2024 8:43 AM LITERARY AGENT 2 g cholestyramine-aspartame 4 gram packet 1 [...] orally administered drugs. Given 08/04/2024 10:41 AM LITERARY AGENT 1 packet fentaNYL injection 25 mcg (Sublimaze) 25 mcg, intravenous, Every 2 min PRN, [...] Thu08/03/24 at 0835, Intraprocedure (CV), Subsequent doses Given 08/03/2024 9:30 AM LITERARY AGENT 25 mcg Given 08/03/2024 9:05 AM LITERARY AGENT 25 mcg Given 08/03/2024 8:48 AM LITERARY AGENT 25 mcg fentaNYL injection 25 mcg (Sublimaze) 25 mcg, [...] are ineffective heparin (porcine) 1,000 unit/mL injection Code/trauma/sedation medication, Starting on Thu08/03/24 at 0909, Intraprocedure (CV) Given 08/03/2024 9:21 AM LITERARY AGENT 3,000 Units Given 08/03/2024 9:09 AM LITERARY AGENT 12,000 Units iohexoL 350 mg iodine/mL solution (Omnipaque) Code/trauma/sedation medication, Starting on Thu08/03/24 at 0930, Intraprocedure (CV) Given 08/03/2024 9:30 AM LITERARY AGENT 60 mL lidocaine 10 mg/mL (1 %) injection (Xylocaine) Code/trauma/sedation medication, Starting on Thu08/03/24 at 0852, Intraprocedure (CV) Given 08/03/2024 9:03 AM LITERARY AGENT 10 mL Right Groin Given 08/03/2024 8:57 AM LITERARY AGENT 10 mL Le ft Groin Given 08/03/2024 8:52 AM LITERARY AGENT 2 mL Ri ght Wrist lidocaine-EPINEPHrine 1 %-1:100,000 injection (Xylocaine w/epi) Code/trauma/sedation medication, Starting on Thu08/03/24 at 0948, Intraprocedure (CV) Given 08/03/2024 9:48 AM LITERARY AGENT 10 mL Right Groin midazolam (PF) injection 0.5 mg (Versed) 0.5 mg, intravenous, Every 2 min PRN, sedation, RASS -1, Starting on Thu08/03/24 at 0835, Intraprocedure (CV), May repeat every 2 minutes for a maximum of 5 mg. Do not give if respiratory rate is less than 8 breaths/minute. Given 08/03/2024 9:11 AM LITERARY AGENT 0.5 mg Given 08/03/2024 9:05 AM LITERARY AGENT 0.5 mg Given 08/03/2024 8:48 AM LITERARY AGENT 0.[address] tablet 40 mg (Protonix) 40 mg, oral, Daily before morning meal, First dose on Keyla 08/04/24 at 0700, pantoprazole 40 mg oral daily was interchanged for omeprazole 20 or 40 mg oral daily Swallow whole. Do NOT crush, chew, or split tablet. Given 08/04/2024 5:34 AM LITERARY AGENT 40 mg documented in this encounter Active and Recently Administered Medications Times are shown in LITERARY AGENT. Scheduled Medication Order 08/02/2024 08/03/2024 08/04/2024 aspirin [...] and drug clearance factors., Indications: Prophylaxis, surgical 2000 (Given - Provider: Soheila Sanchez R.N.) chlorthalidone [...] Gonsalves R.N.)1636 (Given - Provider: Destiney Patrick RDimpleNDimple)2348 (Given - Provider: Soheila Sanchez RDimpleNDimple) 0531 (Given - Provider: Soheila Sanchez R.N.)1139 [...] Intraprocedure (CV) 0909 (Given - Provider: Daniela aLy R.N.)0921 (Given - Provider: Daniela Lay R.N.) [...] ineffective documented in this encounter Care Teams Pharmaceutical Analyst Relationship Specialty Start Date End Date Elsewhere, Pcp PCP - General Internal Medicine 08/03/24 documented as of this encounter
--- OUTSIDE RECORDS SUMMARY | 2024-08-08 15:12 | XMS_ITS | Encounter Summary ---
Author Organization [facility] Address [address] [place] [address] Care Team Providers Care Sapphire Stylus Grinder Name Role Phone Elsewhere, Pcp Primary Care Provider Unavailabl e Reason for Referral * Outpatient (Routine) - Authorized Specialty Diagnoses / Procedures Referred By Contac t Referred To Contact Cardiovascular Disease Diagnoses Stenosis Aortic Valve Acquired Chronic Diastolic (Congestive) Heart Failure (HCC) Enrico Knight APRN C.N.P., M.S.N. [address] [place] [phone] Phone: tel: fax: [facility] Referral ID Status Reason Start Date Expiration Date V isits Requested Visits Authorized [id number] Authorized 08/03/2024 02/02/2026 1 1 ICAL PROGRAM CONSULTANT * Cardiovascular-Diagnostic (Routine) - Authorized Specialty Diagnoses / Procedures Referred By Contac t Referred To Contact Diagnoses Stenosis Aortic Valve Acquired Chronic Diastolic (Congestive) Heart Failure (HCC) Procedures Echo Transthoracic (TTE) Enrico Knight APRN, C.N.P., M.S.N. [address] [place] [phone] Phone: tel: fax: [facility] Referral ID Status Reason Start Date Expiration Date V isits Requested Visits Authorized [id number] Authorized 08/03/2024 08/03/2025 1 1 ICAL PROGRAM CONSULTANT * Outpatient (Routine) - Authorized Specialty Diagnoses / Procedures Referred By El t Referred To Contact Diagnoses Stenosis Aortic Valve Acquired Chronic Diastolic (Congestive) Heart Failure (HCC) Procedures ECG 12 Lead Enrico Knight APRN, C.N.P., M.S.N. [address] [place] [phone] Phone: tel: fax: [facility] Referral ID Status Reason Start Date Expiration Date V isits Requested Visits Authorized [id number] Authorized 08/03/2024 08/03/2025 1 1 ICAL PROGRAM CONSULTANT Encounter Details Date Type Department Care Team (Latest Contact Info) Description 08/03/2024 Clinical Communication Department of Cardiovascular Medicine in [place], [place] [address] [place] [phone] Enrico Knight APRN, C.NДмитрий, M.S.N. [address] [place] [phone] Social History Tobacco Use Types Packs/Day Years Used Date Smoking Tobacco: Never Smokeless Tobacco: Never [facility] Utilities Answer Date Recorded In the past [address] [facility] [employer], gas, oil, or water [employer] threatened to shut off services in your [...] your living situation today? [facility] place to live 08/03/2024 Sex and Gender Information Value Date Recorded Sex Assigned at Male 07/11/2024 10:53 AM CLINICAL PROGRAM CONSULTANT Legal Sex Male 9:21 AM CLINICAL PROGRAM CONSULTANT Gender Identity Male 07/11/2024 10:53 AM CLINICAL PROGRAM CONSULTANT Sexual Orientation Straight 07/11/2024 10 :53 AM CLINICAL PROGRAM CONSULTANT documented as of this encounter Plan of Treatment Upcoming Encounters Date Type Department Care Team (Latest Contact Info) Description 09/20/2024 9:00 AM CLINICAL PROGRAM CONSULTANT Clinical Communication Virtual Review in [place] [address] [place] [phone] 09/21/2024 11:20 AM CLINICAL PROGRAM CONSULTANT Appointment Department of Laboratory Medicine and Pathology, [facility], in [place], [place] [address] [place] [phone] Enrico Knight APRN, C.N.Kaiser., M.S.N. [address] [place] [phone] 09/21/2024 11:40 AM CLINICAL PROGRAM CONSULTANT Ancillary Procedure Department of Cardiovascular Medicine in [place], [place] [address] [place] [phone] Enrico Knight APRN, C.N.Kaiser., M.S.N. [address] [place] [phone] 09/21/2024 12:15 PM CLINICAL PROGRAM CONSULTANT Appointment Department of Cardiovascular Diseases in [place], [place] [address] [place] [phone] Enrico Knight APRN, C.N.P., M.S.N. [address] [place] [phone] Discharge Disposition: Home or Self Care 09/22/2024 9:30 AM CLINICAL PROGRAM CONSULTANT Office Visit Department of Cardiovascular Medicine in [place], [place] [address] [place] [phone] Edna Sandra APRN, C.N.P., M.S.N. [address] [place] [phone] Scheduled Orders Name Type Priority Associated Diagnoses Order Schedule CBC without Differential Lab Routine Stenosis Aortic Valve Acquired Chronic Diastolic (Congestive) Heart Failure (HCC) Expected: 09/03/2024, Expires: 11/01/2025 NT-Pro B-Type Natriuretic Peptide (BNP) Lab Routine Stenosis Aortic Valve Acquired Chronic Diastolic (Congestive) Heart Failure (HCC) Expected: 09/03/2024, Expires: 11/01/2025 ECG 12 Lead ECG Routine Stenosis Aortic Valve Acquired Chronic Diastolic (Congestive) Heart Failure (HCC) Expected: 09/03/2024, Expires: 11/01/2025 Echo Transthoracic (TTE) Echocardiography Routine Stenosis Aortic Valve Acquired Chronic Diastolic (Congestive) Heart Failure (HCC) Expected: 09/03/2024, Expires: 11/01/2025 Basic Metabolic Panel Lab Routine Stenosis Aortic Valve Acquired Chronic Diastolic (Congestive) Heart Failure (HCC) Expected: 09/03/2024, Expires: 11/01/2025 Scheduled Procedures Name Priority Associated Diagnoses Date/Ti me ENDOSCOPY SLEEP STATE Obstructive Sleep Apnea Adult Scheduled Referrals Name Type Priority Associated Diagnoses Order Schedule Cardiovascular Disease office visit (clinic) Outpatient Referral Routine Stenosis Aortic Valve Acquired Chronic Diastolic (Congestive) Heart Failure (HCC) Expected: 09/03/2024, Expires: 11/01/2025 documented as of this encounter Visit Diagnoses Diagnosis Stenosis Aortic Valve Acquired- Primary Chronic Diastolic (Congestive) Heart Failure (HCC) documented in this encounter Care Teams Sapphire Stylus Grinder Relationship Specialty Start Date End Date Elsewhere, Pcp PCP - General Internal Medicine 08/03/24 documented as of this encounter
--- OUTSIDE RECORDS SUMMARY | 2024-08-08 15:12 | XMS_ITS | Encounter Summary ---
Author Organization [facility] Address [address] [place] [address] Care Team Providers Care Cold Storage Superintendent Name Role Phone Elsewhere, Pcp Primary Care Provider Unavailabl e Encounter Details Date Type Department Care Team (Late st Contact Info) Description 08/03/2024 12:23 PM MEASUREMENT PSYCHOLOGIST Anesthesia Event Division of Cardiovascular Diseases in [place], [place] [address] [place] [phone] Laura Castaneda APRN, CRNA [address] [place] [phone] Anesthesia Record Procedure Summary Procedure Name Responsible Anesthesiologist Anesthesia Start Time Anesthesia Stop Time PPM Implant - Dual Chamber (Left) Laura Castaneda APRN, CRNA 08/03/24 1223 08/03/24 1548 Events Date Time Event Comment 08/03/2024 1223 An Start Machine/Equipme nt Checked Infection Precautions Followed Procedure/Site Verified NPO Status Verified Supine Standard ASA Monitors Applied 1230 Turnover to Proceduralist 1318 Proc Start 1332 Anes CS Handoff I, Laura orr APRN, CRNA, attest that I have reconciled the controlled substances and that I have reviewed all the significant information with the next anesthesia provider assuming care of this patient. 1348 Anes CS Handoff I, Laura orr APRN, CRNA, attest that I have reconciled the controlled substances and that I have reviewed all the significant information with the next anesthesia provider assuming care of this patient. 1404 Quick Note Adjusting bp cu ff on right leg. 1419 Quick Note Cuff moved to r ight arm 1538 Turnover to ANE Staff 1538 an stop data 1541 Proc Fin 1548 An End I completed my handoff to the receiving staff during which we 1. Identified the patient 2. Identified the responsible provider 3. Reviewed the pertinent medical history 4. Discussed the surgical course 5. Reviewed intra-op anesthesia management and issues during anesthesia 6. Set expectations for post-procedure period 7. Allowed opportunity for questions and acknowledgement of understanding. Meds Name Total propofol 10 mg/mL injection 20 mg propofol 10 mg/mL infusion 362.15 mg protamine injection 10 mg/mL 20 mg remimazolam (Byfavo) injection 20 mg/8 m L (2.5 mg/mL) (RESTRICTED) 10 mg ceFAZolin (Ancef) injection 1 g/5 mL 2 g NaCl 0.9% free drip 300 mL * Agents No agents on file. * Blood No blood administrations on file. Lines, Drains, and Airways Type Details Placement Removal Percutaneous Access Site 08/03/24; 0900; Venous; Left Femoral; 6 Fr. 08/03/24 0900 by Shilpa Brunson, R.C.I.S. Wound 08/03/24; 1324; N; Incision; Chest; Left, Upper 08/03/24 1324 by Char Rivas, R.N. Peripheral IV Placement Date: 08/03/24; Placement Time: 625; Catheter Size: 20 G; Orientation: Anterior, Left, Lower; Location: Forearm; Site Prep: Chlorhexidine (Preferred); Technique: Anatomical landmarks; Inserted by: CLG; Insertion Attempts: 1; Removal Date: 08/04/24; Removal Time: 1124; Removal Reason: Patient discharged 08/03/24 06 by Jerry Upton, [facility], R.N., CRNI 08/04/24 112 by Tc Michael documented in this encounter Social History Tobacco Use Types Packs/Day Years Used Date Smoking Tobacco: Never Smokeless Tobacco: Never [facility] Utilities Answer Date Recorded In the past 12 months has e [employer], gas, oil, or water [employer] threatened to shut off services in your [...] your living situation today? I have a [facility] place to live 08/03/2024 Sex and Gender Information Value Date Recorded Sex Assigned at Male 07/11/2024 10:53 AM MEASUREMENT PSYCHOLOGIST Legal Sex Male 9:21 AM MEASUREMENT PSYCHOLOGIST Gender Identity Male 07/11/2024 10:53 AM MEASUREMENT PSYCHOLOGIST Sexual Orientation Straight 07/11/2024 10 :53 AM MEASUREMENT PSYCHOLOGIST documented as of this encounter OR Notes * Anesthesia Postprocedure Evaluation - Laura Castaneda APRN, CRNA - 08/03/2024 3:51 PM CST Patient: Neal Gale Procedure Summary Date: 08/03/24 Room / Location: [place] [address] / [facility] Anesthesia Start: 1223 Anesthesia Stop: 1548 Procedures: PPM Implant - Dual Chamber (Left) HIS Bundle Pacing Diagnosis: Surgeons: Chano Powell M.D., M.S. Responsible Provider: Laura Castaneda APRN, CRNA Anesthesia Type: MAC ASA Status: 4 Anesthesia Type: MAC Last vitals Vitals Value Taken Time BP 126/71 08/03/24 1545 Temp Pulse 34 08/03/24 1551 Resp SpO2 97 % 08/03/24 1551 Vitals shown include unfiled device data. Please reference Vitals flowsheet for most recent vital signs. Anesthesia Post Evaluation Patient Disposition: general care unit Cardiovascular status: hemodynamics (HR & BP) acceptable Respiratory status: patent airway with spontaneous effort Temperature: normothermic Oxygen requirements: room air Level of consciousness: awake Pain score: pain adequately controlled and/or at baseline Post Op nausea/vomiting: none Hydration status: euvolemic Notable Events No notable events documented. UREMENT PSYCHOLOGIST * Anesthesia Preprocedure Evaluation - Laura Castaneda APRN, CRNA - 08/03/2024 1:06 PM CST Preprocedure Anesthesia & H&P Assessment Procedure Summary Anesthesia Start Date/Time: 08/03/24 1223 Procedures: PPM Implant - Dual Chamber (Left) - High Risk TAVR- group 3 HIS Bundle Pacing Location: [place] [address] / [facility] Surgeons: Chano Powell M.D., M.S. Pertinent components of the patient's history including current problem list, medical history, surgical history, family history, social history, medications and allergies were reviewed. Present illness and pre-op diagnosis were confirmed. The planned surgery / procedure was verified with the patient / legal guardian. The patient's general health condition remains unchanged RELEVANT COMORBID CONDITIONS CV (+) Chronic Diastolic (Congestive) Heart Failure (HCC) (+) Hypertensive Chronic Kidney Disease With Stage 1 Through Stage 4 Chronic Kidney Disease, Or Unspecified Chronic Kidney Disease RESP (+) Obstructive Sleep Apnea Adult RENAL/REPRO (+) Chronic Kidney Disease (CKD), Stage 3a Glomerular Filtration Rate (GFR) 45 To 59 (HCC) (+) Hypertensive Chronic Kidney Disease With Stage 1 Through Stage 4 Chronic Kidney Disease, Or Unspecified Chronic Kidney Disease Other (+) Obesity Body Mass Index 30-39.9 Adult OBJECTIVE PHYSICAL EXAMINATION Airway (HEENT) Mallampati: IV TM Distance: >3 FB Neck ROM: Full Mouth Opening: >3 cm Cardiovascular Rhythm: Irregular Functional Capacity: <4 METS Pulmonary Pulmonary Assessment: Diminished and clear General / Constitutional Constitutional Assessment: Overweight General State of Health:: calm Neurological Neurologic Assessment: alert and alert and oriented x 3 Dental Dental Assessment: dentition intact ASSESSMENT / PLAN ANESTHESIA PLAN ASA: 4 Anesthesia Plan: MAC Patient seen and allergies reviewed, anesthesia plan and risks discussed directly with patient /legal guardian or through an supervisor grinding. Risks/Benefits/Alternatives of Blood transfusion discussed with patient / legal guardian, includingan opportunity to ask questions and/or decline some or all transfusion therapies. The patient / legal guardian consented to the use of all blood products, as deemed medically necessary Approval to Proceed: approved for anesthesia UREMENT PSYCHOLOGIST documented in this encounter Plan of Treatment Upcoming Encounters Date Type Department Care Team (Latest Contact Info) Description 09/20/2024 9:00 AM MEASUREMENT PSYCHOLOGIST Clinical Communication Virtual Review in [place], [place] 200 [place] [phone] 09/21/2024 11:20 AM MEASUREMENT PSYCHOLOGIST Appointment Department of Laboratory Medicine and Pathology, [facility], in [place], [place] [address] [place] [phone] Enrico Knight, LILIBETH, C.N.P., M.S.N. [address] [place] [phone] 09/21/2024 11:40 AM MEASUREMENT PSYCHOLOGIST Ancillary Procedure Department of Cardiovascular Medicine in [place] [address] [place] [phone] Enrico Knight APRN, C.NArnaldo., M.S.N. [address] [place] [phone] 09/21/2024 12:15 PM MEASUREMENT PSYCHOLOGIST Appointment Department of Cardiovascular Diseases in [place], [place] [address] [place] [phone] Enrico Knight APRN, C.N.P., M.S.N. [address] [place] [phone] Discharge Disposition: Home or Self Care 09/22/2024 9:30 AM MEASUREMENT PSYCHOLOGIST Office Visit Department of Cardiovascular Medicine in [address] [phone] Edna Sandra APRN, C.NArnaldo., M.S.N. [address] [place] [phone] Scheduled Procedures Name Priority Associated Diagnoses Date/Ti me ENDOSCOPY SLEEP STATE Obstructive Sleep Apnea Adult documented as of this encounter Visit Diagnoses Not on filedocumented in this encounter Administered Medications Inactive Administered Medications - up to 3 most recent administrations Medication Order MAR Action Action Date Dose Rate Site ceFAZolin injection (Ancef) intravenous, As needed, Starting on Thu08/03/24 at 1303, Anesthesia Intra-op Given 08/03/2024 1:03 PM MEASUREMENT PSYCHOLOGIST 2 g NaCl 0.9% infusion intravenous, Continuous Infusion: Per Instructions PRN, Starting on Thu08/03/24 at 1223, Anesthesia Intra-op New Bag 08/03/2024 12:23 PM MEASUREMENT PSYCHOLOGIST propofol 10 mg/mL infusion (Diprivan) intravenous, Continuous Infusion: Per Instructions PRN, Starting on Thu08/03/24 at 1250, Anesthesia Intra-op Rate/Dose Change 08/03/2024 2:20 PM MEASUREMENT PSYCHOLOGIST 25 mcg/kg/min 14.055 mL/hr Rate/Dose Change 08/03/2024 1:36 PM MEASUREMENT PSYCHOLOGIST 35 mcg/kg/min 19.6 77 mL/hr New Bag 08/03/2024 12:50 PM MEASUREMENT PSYCHOLOGIST 25 mcg/kg/min 14.055 mL /hr propofoL injection (Diprivan) intravenous, As needed, Starting on Thu08/03/24 at 1250, Anesthesia Intra-op Given 08/03/2024 12:50 PM MEASUREMENT PSYCHOLOGIST 20 mg protamine injection intravenous, As needed, Starting on Thu08/03/24 at 1247, Anesthesia Intra-op Given 08/03/2024 12:50 PM MEASUREMENT PSYCHOLOGIST 10 mg Given 08/03/2024 12:47 PM MEASUREMENT PSYCHOLOGIST 10 mg remimazolam injection (Byfavo) intravenous, As needed, Starting on Thu08/03/24 at 1252, Anesthesia Intra-op Given 08/03/2024 3:34 PM MEASUREMENT PSYCHOLOGIST 2 mg Given 08/03/2024 3:28 PM MEASUREMENT PSYCHOLOGIST 2 mg Given 08/03/2024 3:17 PM MEASUREMENT PSYCHOLOGIST 1 mg documented in this encounter Care Teams Cold Storage Superintendent Relationship Specialty Start Date End Date Elsewhere, Pcp PCP - General Internal Medicine 08/03/24 documented as of this encounter
--- OUTSIDE RECORDS SUMMARY | 2024-08-08 15:12 | XMS_ITS | Encounter Summary ---
Author Organization [facility] Address [address] [place] [address] Care Team Providers Care Sales Service Manager Name Role Phone Elsewhere, Pcp Primary Care Provider Unavailabl e Reason for Visit * Reason Onset Date Comments DEVICE REGISTRATION 08/04/2024 Encounter Details Date Type Department Care Team (Latest Contact Info) Description 08/04/2024 Clinical Communication Department of Cardiovascular Medicine in [place], [place] [address] [place] [phone] Nelson Jones M.D., Ph.D. [address] [place] [phone] DEVICE REGISTRATION Social History Tobacco Use Types Packs/Day Years Used Date Smoking Tobacco: Never Smokeless Tobacco: Never [facility] Utilities Answer Date Recorded In the past 12 months has [facility] [employer], gas, oil, or water [employer] threatened to shut off services in your [...] your living situation today? I have a [facility] place to live 08/03/2024 Sex and Gender Information Value Date Recorded Sex Assigned at Male 07/11/2024 10:53 AM RESEARCH LABORATORY TECHNICIAN Legal Sex Male 9:21 AM RESEARCH LABORATORY TECHNICIAN Gender Identity Male 07/11/2024 10:53 AM RESEARCH LABORATORY TECHNICIAN Sexual Orientation Straight 07/11/2024 10 :53 AM RESEARCH LABORATORY TECHNICIAN documented as of this encounter Miscellaneous Notes * Telephone Encounter - Siena Terrell - 08/04/2024 10:33 AM CST Images from the original note were not included. _x_Register PPM & Leads x__Create [place] Case x__Scan ARCH LABORATORY TECHNICIAN documented in this encounter Plan of Treatment Upcoming Encounters Date Type Department Care Team (Latest Contact Info) Description 09/20/2024 9:00 AM RESEARCH LABORATORY TECHNICIAN Clinical Communication Virtual Review in [place], [place] [address] [place] [phone] 09/21/2024 11:20 AM RESEARCH LABORATORY TECHNICIAN Appointment Department of Laboratory Medicine and Pathology, [facility], in [address] [phone] Enrico Knight APRN, C.N.P., M.S.N. [address] [place] [phone] 09/21/2024 11:40 AM RESEARCH LABORATORY TECHNICIAN Ancillary Procedure Department of Cardiovascular Medicine in [address] [phone] Enrico Knigth APRN, C.N.P., M.S.N. [address] [place] [phone] 09/21/2024 12:15 PM RESEARCH LABORATORY TECHNICIAN Appointment Department of Cardiovascular Diseases in [address] [phone] Enrico Knight APRN, C.N.P., M.S.N. [address] [place] [phone] Discharge Disposition: Home or Self Care 09/22/2024 9:30 AM RESEARCH LABORATORY TECHNICIAN Office Visit Department of Cardiovascular Medicine in [address] [phone] Edna Sandra APRN, C.N.P., M.S.N. [address] [place] [phone] Scheduled Procedures Name Priority Associated Diagnoses Date/Ti me ENDOSCOPY SLEEP STATE Obstructive Sleep Apnea Adult documented as of this encounter Visit Diagnoses Not on filedocumented in this encounter Care Teams Sales Service Manager Relationship Specialty Start Date End Date Elsewhere, Pcp PCP - General Internal Medicine 08/03/24 documented as of this encounter
--- OUTSIDE RECORDS SUMMARY | 2024-08-08 15:13 | XMS_ITS | Clinical Summary ---
Author Organization [facility] Address [place], [place] [address] Care Team Providers Care Vat House Laborer Name Role Phone Anthony Benjamin MD Primary Care Provider [phone] Allergies No known active allergies Medications omeprazole (PRILOSEC) 20 mg Delayed-Release capsule Take 1 capsule by mouth once daily before a meal. 0 6 Active cholestyramine-s ucrose 4 G per scoop (QUESTRAN) 4 gram powder Take 1 Packet by mouth 2 times daily. 0 6 Active lisinopril (PRINIVIL; ZESTRIL) 20 mg tablet Take 1 tablet by mouth once daily. 0 6 Active ibuprofen (ADVIL; MOTRIN) 400 mg tablet Take 1 tablet by mouth 4 times daily if needed. Uses prn 0 6 Active chlorthalidone (HYGROTON) 25 mg tablet Take 1 tablet by mouth once daily. 0 8 Active diphenoxylate-at ropine, 2.5-0.025 mg, (LOMOTIL) 2.5-0.025 mg tabletIndication s:Diarrhea, unspecified type 1-2 tablets every 4-6 hours for diarrhea 120 tablet 5 8 Active Active Problems Problem Noted Date Diagnosed Date Diarrhea 10/15/2015 Overview (10/15/2015): EGD 10/2015 normal Encounters Date Type Department Care Team Description 08/05/2024 Orders Only [facility] [address] [place] [address] Erika Rogel RN <No scans attached> from Last 3 Months Social History Tobacco Use Types Packs/Day Years Used Date Smoking Tobacco: Never Smokeless Tobacco: Never Tobacco Cessation:Counseling Given: Yes Sex and Gender Information Value Date Recorded Sex Assigned at Not on file Legal Sex Male 5:23 AM INFORMATION SECURITY ASSOCIATE Gender Identity Not on file Sexual Orientation Not on file Obstetrics History Last Filed Vital Signs Vital Sign Reading Time Taken Comments Blood Pressure 149/87 10/20/2017 2:33 PM INFORMATION SECURITY ASSOCIATE Pulse 65 10/20/2017 2:33 PM INFORMATION SECURITY ASSOCIATE Temperature 35 C (95 F) 10/10/2015 2:10 PM INFORMATION SECURITY ASSOCIATE Respiratory Rate - - Oxygen Saturation 96% 10/20/2017 2:33 PM INFORMATION SECURITY ASSOCIATE Inhaled Oxygen Concentration - - Weight 110.3 kg (243 lb 3.2 oz) 10/20/2017 2:33 PM INFORMATION SECURITY ASSOCIATE Height 177.8 cm (5' 10) 10/10/2015 2:10 PM INFORMATION SECURITY ASSOCIATE Body Mass Index 34.9 10/10/2015 2:10 PM INFORMATION SECURITY ASSOCIATE Plan of Treatment Upcoming Encounters Date Type Department Care Team (Late st Contact Info) Description 08/11/2024 11:00 AM INFORMATION SECURITY ASSOCIATE Appointment [facility] [address] [place] [address] Health Maintenance Due Date Last Done Comments Tdap 1957 Depression screening for age 12+ 1958 Hepatitis C screening for age 18-79 1964 Tetanus booster 1966 Zoster (shingles) series for age 50+ (1 of 2) 03/25/19 96 Pneumococcal series for age 65+ (1 of 1 - PCV) 011 BMI (ht and wt on same day) for age 18+ 10/10/2016 0 10/10/2015 RSV vaccine for adults or pr egnancy (1 - 1-dose 75+ series) 2021 COVID-19 vaccine series ( - 2023- season) 4 Influenza for age 65+ 05/01/2024 Insurance BLUE CROSS CAMPO BLUE MR PB ONLY Care Teams Vat House Laborer Relationship Specialty Start Date End Date Anthony Benjamin MD PCP - General Family Practice 08/29/15
--- OUTSIDE RECORDS SUMMARY | 2024-08-08 15:13 | XMS_ITS | Encounter Summary ---
Author Organization [facility] Address [address] [place] [address] Care Team Providers Care Clinical Account Executive Name Role Phone Unavailable Primary Care Provider Unavailabl e Reason for Referral * MRI/CAT/PET Scan (Routine) - Closed Specialty Diagnoses / Procedures Referred By Contac t Referred To Contact Radiology Diagnoses Stenosis Aortic Valve Acquired Procedures CT Chest Angiogram with IV Contrast Danyell Morris M.B.B.S., Ph.D. 200 [place] [address] Phone: tel: fax: [facility] Referral ID Status Reason Start Date Expiration Date Visits Re quested Visits Authorized [id number] Closed 05/30/2024 05/30/2025 1 1 RAL OFFICE REPAIRER SUPERVISOR * MRI/CAT/PET Scan (Routine) - Closed Specialty Diagnoses / Procedures Referred By Contac t Referred To Contact Radiology Diagnoses Stenosis Aortic Valve Acquired Procedures CT Cardiac Angiogram Structural Heart with Coronary Arteries with IV Contrast Danyell Morris M.B.BDimpleS., Ph.D. [address] [place] [phone] Phone: tel: fax: [facility] Referral ID Status Reason Start Date Expiration Date Visits Re quested Visits Authorized [id number] Closed 05/30/2024 05/30/2025 1 1 RAL OFFICE REPAIRER SUPERVISOR * MRI/CAT/PET Scan (Routine) - Closed Specialty Diagnoses / Procedures Referred By El becker Referred To Contact Radiology Diagnoses Stenosis Aortic Valve Acquired Procedures CT Abdomen Pelvis Angiogram with IV Contrast Danyell Morris M.B.B.S., Ph.D. [address] [place] [phone] Phone: tel: fax: [facility] Referral ID Status Reason Start Date Expiration Date Visits Re quested Visits Authorized [id number] Closed 05/30/2024 05/30/2025 1 1 RAL OFFICE REPAIRER SUPERVISOR Reason for Visit * MRI/CAT/PET Scan (Routine) - Closed Specialty Diagnoses / Procedures Referred By El becker Referred To Contact Radiology Diagnoses Stenosis Aortic Valve Acquired Procedures CT Abdomen Pelvis Angiogram with IV Contrast Danyell Morris M.B.B.S., Ph.D. [address] [place] [phone] Phone: tel: fax: [facility] Referral ID Status Reason Start Date Expiration Date Visits Re quested Visits Authorized [id number] Closed 05/30/2024 05/30/2025 1 1 Encounter Details Date Type Department Care Team (Latest Contact Info) Description 07/13/2024 11:07 AM CENTRAL OFFICE REPAIRER SUPERVISOR - 07/13/2024 11:59 PM [facility] Encounter Department of Radiology, [facility] in [place], [place] [address] [place] [address] Danyell Morris M.B.B.SDimple, Ph.D. [address] [place] [phone] Stenosis Aortic Valve Acquired Discharge Disposition: Home or Self Care Social History Tobacco Use Types Packs/Day Years Used Date Smoking Tobacco: Never Smokeless Tobacco: Never [facility] Utilities Answer Date Recorded In the past 12 months has th e [employer], [employer], oil, or water [employer] threatened to shut off services in your home? No 07/11/2024 Exercise Vital Sign Answer Date Recorde d [...] the money to buy more. Never true 07/11/20 24 Within the past 12 months, t he food you bought just didn't last and you didn't have money to get more. Never true 07/11/2024 PRAPARE - Transportation Answer Date Re corded In the past 12 months, has l ack of transportation kept you from medical appointments or from getting medications? No 07/01 In the past 12 months, has l ack of transportation kept you from meetings, work, or from getting things needed for daily living? No 07/11/2024 Nutrition Answer Date Recorded On average, how [...] your living situation today? I have a [facility] place to live 07/11/2024 Sex and Gender Information Value Date Recorded Sex Assigned at Male 07/11/2024 10:53 AM CENTRAL OFFICE REPAIRER SUPERVISOR Legal Sex Male 9:21 AM CENTRAL OFFICE REPAIRER SUPERVISOR Gender Identity Male 07/11/2024 10:53 AM CENTRAL OFFICE REPAIRER SUPERVISOR Sexual Orientation Straight 07/11/2024 10 :53 AM CENTRAL OFFICE REPAIRER SUPERVISOR documented as of this encounter Last Filed Vital Signs Vital Sign Reading Time Taken Comments Blood Pressure - - Pulse - - Temperature - - Respiratory Rate - - Oxygen Saturation - - Inhaled Oxygen Concentration - - Weight 98 kg (216 lb 0.8 oz) 07/13/2024 12:05 PM CENTRAL OFFICE REPAIRER SUPERVISOR Height 175.3 cm (5' 9.02) 07/13/2024 12:[address] Body Mass Index 31.89 07/13/2024 12:05 PM CENTRAL OFFICE REPAIRER SUPERVISOR documented in this encounter Medications at Time of Discharge amoxicillin (AmoxiL) 500 mg capsule Take 4 capsules (2,000 mg total) by mouth as directed. Take 4 caps (2000 mg) 1 hour prior to dental procedure. 12 capsule 2 08/04/2024 aspirin 81 mg chewable tablet Chew 1 tablet (81 mg total) daily. 08/04/2024 Cholestyramine Light 4 gram powder TAKE 4G BY MOUTH TWICE DAILY 04/04/2024 lisinopriL 20 mg tablet Take 1 tablet by mouth daily. 10/10/2015 omeprazole (PriLOSEC) [address] capsule Take 1 capsule by mouth daily. 10/10/2015 chlorthalidone (Hygroton) 25 mg tablet Take by mouth daily. 04/06/2012 07/15/2024 cholestyramine (Questran) 4 gram powder Take 1 packet by mouth. 10/10/2015 07/15/2024 cholestyramine (Questran) 4 gram powder Take by mouth 2 (two) times a day. 04/06/2012 07/15/2024 diphenoxylate-at ropine (LomotiL) 2.5-0.025 mg per tablet 1-2 tablets every 4-6 hours for diarrhea 10/20/2017 07/15/2024 omeprazole (PriLOSEC) [address] capsule Take by mouth every morning. 04/06/2012 07/15/2024 documented as of this encounter Plan of Treatment Upcoming Encounters Date Type Department Care Team (Latest Contact Info) Description 09/20/2024 9:00 AM CENTRAL OFFICE REPAIRER SUPERVISOR Clinical Communication Virtual Review in [place], [place] 200 [place] [phone] 09/21/2024 11:20 AM CENTRAL OFFICE REPAIRER SUPERVISOR Appointment Department of Laboratory Medicine and Pathology, [facility], in [place], [place] [address] [place] [phone] Enrico Knight APRN, C.N.P., M.S.N. [address] [place] [phone] 09/21/2024 11:40 AM CENTRAL OFFICE REPAIRER SUPERVISOR Ancillary Procedure Department of Cardiovascular Medicine in [place], [place] [address] [place] [phone] Enrico Knight APRN, C.N.P., M.S.N. [address] [place] [phone] 09/21/2024 12:15 PM CENTRAL OFFICE REPAIRER SUPERVISOR Appointment Department of Cardiovascular Diseases in [place], [place] [address] [place] [phone] Enrico Knight APRN, C.N.Kaiser., M.S.N. [address] [place] [phone] Discharge Disposition: Home or Self Care 09/22/2024 9:30 AM CENTRAL OFFICE REPAIRER SUPERVISOR Office Visit Department of Cardiovascular Medicine in [place], [place] [address] [place] [phone] Edna Sandra APRN, [place].N.P., M.S.N. [address] [place] [phone] Scheduled Orders Name Type Priority Associated Diagnoses Orde r Schedule Creatinine, POCT Point of Care Testing-Docked Device Routine Routine lab collecti on (next collection) for 1 Occurrences starting 07/13/2024 until 07/13/2024 Scheduled Procedures Name Priority Associated Diagnoses Date/Ti me ENDOSCOPY SLEEP STATE Obstructive Sleep Apnea Adult documented as of this encounter Procedures Procedure Name Priority Date/Time Associated Diagnosis Comments CT CARDIAC ANGIO STRUCTURAL HEART W ANNABELLE ARTERIES W IV CONTRAST RAD - Routine (most inpatients and all outpatients) 07/13/2024 1:36 PM CENTRAL OFFICE REPAIRER SUPERVISOR Stenosis Aortic Valve Acquired CT ABDOMEN PELVIS ANGIOGRAM WITH IV CONTRAST RAD - Routine (most inpatients and all outpatients) 07/13/2024 1:36 PM CENTRAL OFFICE REPAIRER SUPERVISOR Stenosis Aortic Valve Acquired CT CHEST ANGIOGRAM WITH IV CONTRAST RAD - Routine (most inpatients and all outpatients) 07/13/2024 1:36 PM CENTRAL OFFICE REPAIRER SUPERVISOR Stenosis Aortic Valve Acquired CREATININE, POCT, B Routine 07/13/2024 12:01 PM CENTRAL OFFICE REPAIRER SUPERVISOR CREATININE, POCT, B Routine 07/13/2024 12:01 PM CENTRAL OFFICE REPAIRER SUPERVISOR documented in this encounter Results * CT Chest Angiogram with IV Contrast (07/13/2024 1:36 PM CENTRAL OFFICE REPAIRER SUPERVISOR) Anatomical Region Laterality Modality Chest, Cardiovascular RST LO S, Thoracic ARZ LOS, Thoracic FLA LOS, Vascular Interventional ARZ LOS, Procedural, Vascular Interventional NWWI LOS N/A Computed Tomography, Computed Tomography Impressions 07/13/2024 3:16 PM CENTRAL OFFICE REPAIRER SUPERVISOR 1. Tricuspid aortic valve with calcific aortic [...] coronary FFRct analysis Narrative 07/13/2024 3:16 PM CENTRAL OFFICE REPAIRER SUPERVISOR EXAM: CT CARDIAC ANGIO STRUCTURAL HEART W [...] Plane N, R, L = 8 degrees [place] ; 5 degrees SHAREPOINT NET DEVELOPER * Craniocaudal tilt at 0 degrees [place] = 7 degrees CAU * Craniocaudal tilt at 10 degrees [place] = 7 degrees SHAREPOINT NET DEVELOPER * Craniocaudal tilt at 10 degrees POLLACK [...] Plane N, R, L = 8 degrees [place] ; 5 degrees SHAREPOINT NET DEVELOPER * Craniocaudal tilt at 0 degrees [place] = 7 degrees CAU * Craniocaudal tilt at 10 degrees [place] = 7 degrees SHAREPOINT NET DEVELOPER * Craniocaudal tilt at 10 degrees POLLACK [...] sentfor coronary FFRct analysis Danyell Walsh, Ph.D. G CT PROCEDUR ES Final Result * CT Cardiac Angiogram Structural Heart with Coronary Arteries with IV Contrast (07/13/2024 1:36 PM CENTRAL OFFICE REPAIRER SUPERVISOR) Anatomical Region Laterality Modality Cardiac, Cardiovascular RST LOS, Thoracic ARZ LOS, Cardiovascular FLA LOS N/A Computed Tomography, Compute d Tomography Impressions 07/13/2024 3:16 PM CENTRAL OFFICE REPAIRER SUPERVISOR 1. Tricuspid aortic valve with calcific aortic [...] coronary FFRct analysis Narrative 07/13/2024 3:16 PM CENTRAL OFFICE REPAIRER SUPERVISOR EXAM: CT CARDIAC ANGIO STRUCTURAL HEART W [...] Plane N, R, L = 8 degrees [place] ; 5 degrees SHAREPOINT NET DEVELOPER * Craniocaudal tilt at 0 degrees [place] = 7 degrees CAU * Craniocaudal tilt at 10 degrees [place] = 7 degrees SHAREPOINT NET DEVELOPER * Craniocaudal tilt at 10 degrees POLLACK [...] Plane N, R, L = 8 degrees [place] ; 5 degrees SHAREPOINT NET DEVELOPER * Craniocaudal tilt at 0 degrees [place] = 7 degrees CAU * Craniocaudal tilt at 10 degrees [place] = 7 degrees SHAREPOINT NET DEVELOPER * Craniocaudal tilt at 10 degrees POLLACK [...] not sentfor coronary FFRct analysis us Danyell Walsh, Ph.D. IMG CT PROCEDUR ES Final Result * CT Abdomen Pelvis Angiogram with IV Contrast (07/13/2024 1:36 PM CENTRAL OFFICE REPAIRER SUPERVISOR) Anatomical Region Laterality Modality Abdomen, Pelvis, Cardiovascu lar RST LOS, Abdominal ARZ LOS, Vascular Interventional ARZ LOS, Abdominal FLA LOS, Vascular Interventional FLA LOS, Procedural, Vascular Interventional NWWI LOS N/A Computed Tomography, Compute d Tomography 07/13/2024 12:5 5 PM CENTRAL OFFICE REPAIRER SUPERVISOR Impressions 07/13/2024 2:16 PM CENTRAL OFFICE REPAIRER SUPERVISOR 1. Moderate peripheral arterial disease. No flow-limiting lesions. Noncalcified nodular plaques protrude into lumen of distal infrarenal aorta and right common iliac artery. Please see verified arterial measurements in QREADS. This examination was performed in conjunction with a CT of the Chest, which will be reported separately. Narrative 07/13/2024 2:16 PM CENTRAL OFFICE REPAIRER SUPERVISOR REVISED REPORT: EXAM: CT ABDOMEN PELVIS ANGIOGRAM [...] of the Chest,which will be reported separately. Danyell Walsh, Ph.D. IMG CT PROCEDUR ES Edited Result - Final * (ABNORMAL) Creatinine, POCT (07/13/2024 12:01 PM CENTRAL OFFICE REPAIRER SUPERVISOR) [facility] Estimated GFR (eGFR), POCT 32(L) >=60 mL/min/BSA 07/13/2024 12:06 PM CENTRAL OFFICE REPAIRER SUPERVISOR [facility] Comment: Estimated GFR calculated using the 2020 CKD_EPI creatinine equation. Blood 07/13/2024 12:0 1 PM CENTRAL OFFICE REPAIRER SUPERVISOR 07/13/2024 12:05 PM CENTRAL OFFICE REPAIRER SUPERVISOR Unknown Provider LAB POCT ORDERABLES - DEVICE Fi nal Result POC [facility]ST [facility] [address] [place] [address], [facility] POC [address] [place] [address] * (ABNORMAL) Creatinine, POCT (07/13/2024 12:01 PM CENTRAL OFFICE REPAIRER SUPERVISOR) [facility] Creatinine, POCT, B 2.1(H) 0.7 - 1.4 mg/dL 07/13/2024 12:05 PM CENTRAL OFFICE REPAIRER SUPERVISOR [facility] Comment: ----ADDITIONAL INFORMATION---- Performed at the Point of Care Blood 07/13/2024 12:0 1 PM CENTRAL OFFICE REPAIRER SUPERVISOR 07/13/2024 12:05 PM CENTRAL OFFICE REPAIRER SUPERVISOR us Unknown Provider LAB POCT ORDERABLES - DEVICE Fi nal Result [facility] PERFORMING LABS [address] [place] [address], [facility] PCDT [facility] [place] POC [address] [place] [address] documented in this encounter Visit Diagnoses Diagnosis Stenosis Aortic Valve Acquired documented in this encounter Administered Medications Inactive Administered Medications - up to 3 most recent administrations Medication Order MAR Action Action Date Dose Rate Site iopromide 370 mg iodine/mL injection 1-162 mL (Ultravist) 1-162 mL, intravenous, Once in imaging, contrast, Starting on Thu07/13/24 at 1147, For 1 dose, Imaging Protocol Orders, Dose per Radiant Medication Guidelines Given 07/13/2024 12:34 PM CENTRAL OFFICE REPAIRER SUPERVISOR 100 mL sodium chloride (PF) 0.9 % injection 1-100 mL 1-100 mL, intravenous, Once, On Thu07/13/24 at 1215, For 1 dose, Imaging Protocol Orders, Dose per Radiant Medication Guidelines Given 07/13/2024 12:35 PM CENTRAL OFFICE REPAIRER SUPERVISOR 28 mL documented in this encounter
--- OUTSIDE RECORDS SUMMARY | 2024-08-08 15:13 | XMS_ITS | Encounter Summary ---
Author Organization [facility] Address [address] [place] [address] Care Team Providers Care Family Medicine Chair Name Role Phone Unavailable Primary Care Provider Unavailabl e Reason for Visit * Reason Comments Patient Education * Appointment Request (Routine) - Closed Specialty Diagnoses / Procedures Referred By Contac t Referred To Contact Cardiovascular Surgery Referral ID Status Reason Start Date Expiration Date Visits Re quested Visits Authorized [id number] Closed 07/01/2024 07/01/2025 1 1 Encounter Details Date Type Department Care Team (Latest Contact Info) Description 08/01/2024 1:00 PM BICYCLE COURIER Virtual Visit Department of Cardiovascular Medicine in [place], [place] [address] [place] [phone] Emely Dominguez, RDimpleN. [address] [place] [phone] Hypertensive Chronic Kidney Disease With Stage 1 Through Stage 4 Chronic Kidney Disease, Or Unspecified Chronic Kidney Disease (Primary Dx); Stenosis Aortic Valve Acquired; Obstructive Sleep Apnea Adult Social History Tobacco Use Types Packs/Day Years Used Date Smoking Tobacco: Never Smokeless Tobacco: Never [facility] Utilities Answer Date Recorded In [...] living situation today? I have a [facility] to live 08/03/2024 Sex and Gender Information Value Date Recorded Sex Assigned at Male 07/11/2024 10:53 AM BICYCLE COURIER Legal Sex Male 9:21 AM BICYCLE COURIER Gender Identity Male 07/11/2024 10:53 AM BICYCLE COURIER Sexual Orientation Straight 07/11/2024 10 :53 AM BICYCLE COURIER documented as of this encounter Patient Instructions * Attachments The following attachments cannot be sent through Care Everywhere. * Instructions To Get Ready for Your Cardiac Catheterization or Heart Rhythm Procedure: [facility] * Infective Endocarditis Prevention * Care After Your Pacemaker or ICD Replacement * About Your Pacemaker Implantation documented in this encounter Progress Notes * Emely Dominguez R.N. - 08/01/2024 1:00 PM CST SUBJECTIVE REASON FOR VISIT Pre-procedure education OBJECTIVE Nurse education visit was completed within the Pre-Procedure Clinic (PPC) as ordered by the referring provider for a Jet Mechanic readiness review and education prior to procedure. The visit was conducted via telephone. Procedure to be done: Transcatheter Aortic Valve Replacement (TAVR) Date of procedure: 08/03/24 RADHA completed within 30 days of procedure? Yes Labs completed within 45 days of procedure? Yes May need Type and screen. Done 07/13/24. ECG completed within designated timeframe of procedure? Yes Allergy to contrast dye/iodine? Yes Medications -- Vitamins/Supplements Instructions: Do not take vitamins or supplements the morning of the procedure. Do not take your Chlorthalidone (diuretic medication) the morning of your procedure. Anticoagulation Plan Not applicable ASSESSMENT / PLAN Information Discussed Reviewed pre-procedure instructions with patient/family including: Basic information about the scheduled procedure. Fasting for 8 hours, 6 hours, and 2 hours prior to report time. Please refer to the ???Instructions To Get Ready for Your Cardiac Catheterization or Heart Rhythm Procedure: [facility] pamphlet for further details. Taking all medications as instructed. Calling the [facility] Service Line ([phone]) the evening before the procedure between the hours of 7:00 pm and midnight to learn what time and where to report to the hospital the next day. Needing a responsible adult (18 years of age or older) to be present the day of procedure includingat discharge for transportation home. Planning to stay within 100 miles of [facility] overnight. Visitor Policy Please check the [facility] Visitor Policy website for the most up to date visitor policy information. Disposition/Recommendation: protocol orders Information/Education: patient/caller able to teach back Caller agreeable to plan of care: yes The following references were used: patient education resources: as documented in the Education Activity and [facility] protocol: Cardiovascular Clinic Pre- Cardiac Invasive Catheterization ProcedurePatient Management CLE COURIER documented in this encounter Plan of Treatment Upcoming Encounters Date Type Department Care Team (Latest Contact Info) Description 09/20/2024 9:00 AM BICYCLE COURIER Clinical Communication Virtual Review in [place], [place] 200 [place] [phone] 09/21/2024 11:20 AM BICYCLE COURIER Appointment Department of Laboratory Medicine and Pathology, [facility] in [address] [phone] Enrico Knight APRN, C.N.P., M.S.N. [address] [place] [phone] 09/21/2024 11:40 AM BICYCLE COURIER Ancillary Procedure Department of Cardiovascular Medicine in [address] [phone] Enrico Knight APRN, C.N.Kaiser., M.S.N. [address] [place] [phone] 09/21/2024 12:15 PM BICYCLE COURIER Appointment Department of Cardiovascular Diseases in [address] [phone] Enrcio Knight APRN, Chano.N.P., M.S.N. [address] [place] [phone] Discharge Disposition: Home or Self Care 09/22/2024 9:30 AM BICYCLE COURIER Office Visit Department of Cardiovascular Medicine in [address] [phone] Edna Sandra APRN, C.N.P., M.S.N. [address] [place] [phone] Scheduled Procedures Name Priority Associated Diagnoses Date/Ti me ENDOSCOPY SLEEP STATE Obstructive Sleep Apnea Adult documented as of this encounter Visit Diagnoses Diagnosis Hypertensive Chronic Kidney Disease With Stage 1 Through Stage 4 Chronic Kidney Disease, Or Unspecified Chronic Kidney Disease- Primary Stenosis Aortic Valve Acquired Obstructive Sleep Apnea Adult documented in this encounter
--- OUTSIDE RECORDS SUMMARY | 2024-08-08 15:13 | XMS_ITS | Encounter Summary ---
Author Organization [facility] Address [address] [place] [address] Care Team Providers Care Courtesy Driver Name Role Phone Unavailable Primary Care Provider Unavailabl e Reason for Referral * Specialty Diagnoses / Procedures Referred By Contac t Referred To Contact Diagnoses Stenosis Aortic Valve Acquired Danyell Morris M.B.BDimpleSDimple, Ph.D. [address] [place] [phone] Phone: tel: fax: [facility] Referral ID Status Reason Start Date Expiration Date Visits Re quested Visits Authorized * MRI/CAT/PET Scan (Routine) - Closed Specialty Diagnoses / Procedures Referred By Contac t Referred To Contact Radiology Diagnoses Stenosis Aortic Valve Acquired Procedures CT Chest Angiogram with IV Contrast Danyell Morris M.B.B.S., Ph.D. [address] [place] [phone] Phone: tel: fax: [facility] Referral ID Status Reason Start Date Expiration Date Visits Re quested Visits Authorized [id number] Closed 05/30/2024 05/30/2025 1 1 * MRI/CAT/PET Scan (Routine) - Closed Specialty Diagnoses / Procedures Referred By El t Referred To Contact Radiology Diagnoses Stenosis Aortic Valve Acquired Procedures CT Cardiac Angiogram Structural Heart with Coronary Arteries with IV Contrast Danyell Morris M.B.B.S., Ph.D. [address] [place] [phone] Phone: tel: fax: [facility] Referral ID Status Reason Start Date Expiration Date Visits Re quested Visits Authorized [id number] Closed 05/30/2024 05/30/2025 1 1 * MRI/CAT/PET Scan (Routine) - Closed Specialty Diagnoses / Procedures Referred By El t Referred To Contact Radiology Diagnoses Stenosis Aortic Valve Acquired Procedures CT Abdomen Pelvis Angiogram with IV Contrast Danyell Morris M.B.B.S., Ph.D. [address] [place] [phone] Phone: tel: fax: [facility] Referral ID Status Reason Start Date Expiration Date Visits Re quested Visits Authorized [id number] Closed 05/30/2024 05/30/2025 1 1 * Outpatient (Routine) - Closed Specialty Diagnoses / Procedures Referred By El t Referred To Contact Diagnoses Stenosis Aortic Valve Acquired Procedures ECG 12 Lead Danyell Morris M.B.B.S., Ph.D. [address] [place] [phone] Phone: tel: fax: [facility] Referral ID Status Reason Start Date Expiration Date Visits Re quested Visits Authorized [id number] Closed 05/30/2024 05/30/2025 1 1 * Outpatient (Routine) - Closed Specialty Diagnoses / Procedures Referred By El t Referred To Contact Diagnoses Stenosis Aortic Valve Acquired Procedures DX Chest AP or PA and Lateral 2 Views Danyell Morris M.B.BDimpleS., Ph.D. [address] [place] [phone] Phone: tel: fax: [facility] Referral ID Status Reason Start Date Expiration Date Visits Re quested Visits Authorized [id number] Closed 05/30/2024 05/30/2025 1 1 Reason for Visit * Reason Onset Date Comments Pre-visit Testing Orders 05/30/2024 Encounter Details Date Type Department Care Team (Latest Contact Info) Description 05/30/2024 Clinical Communication Department of Cardiovascular Medicine in [place], [place] [address] [place] [phone] Danyell Morris M.B.B.S., Ph.D. [address] [place] [phone] Pre-visit Testing Orders Social History Tobacco Use Types Packs/Day Years Used Date Smoking Tobacco: Never Smokeless Tobacco: Never Nutrition Answer Date Recorded Nutrition: EVOO Fat Source 13 03/27 Nutrition: Servings of Fruits/Vegetables per Day Not on file 03/27/2020 Dental Answer Date Recorded Dental: Regular Dentist Unknown 11/02/19 21 Sex and Gender Information Value Date Recorded Sex Assigned at Male 07/11/2024 10:53 AM VP OF TECHNOLOGY Legal Sex Male 9:21 AM VP OF TECHNOLOGY Gender Identity Male 07/11/2024 10:53 AM VP OF TECHNOLOGY Sexual Orientation Straight 07/11/2024 10 :53 AM VP OF TECHNOLOGY documented as of this encounter Plan of Treatment Upcoming Encounters Date Type Department Care Team (Latest Contact Info) Description 09/20/2024 9:00 AM VP OF TECHNOLOGY Clinical Communication Virtual Review in [place], [place] 200 [place] [phone] 09/21/2024 11:20 AM VP OF TECHNOLOGY Appointment Department of Laboratory Medicine and Pathology, [facility] in [place], [place] [address] [place] [phone] Enrico Knight APRN, C.N.Kaiser., M.S.N. [address] [place] [phone] 09/21/2024 11:40 AM VP OF TECHNOLOGY Ancillary Procedure Department of Cardiovascular Medicine in [place], [place] [address] [place] [phone] Enrico Knight APRN, C.NДмитрий, M.S.N. [address] [place] [phone] 09/21/2024 12:15 PM VP OF TECHNOLOGY Appointment Department of Cardiovascular Diseases in [place], [place] [address] [place] [phone] Enrico Knight APRN, C.N.Kaiser., M.S.N. [address] [place] [phone] Discharge Disposition: Home or Self Care 09/22/2024 9:30 AM VP OF TECHNOLOGY Office Visit Department of Cardiovascular Medicine in [address] [phone] Edna Sandra APRN, C.NArnaldo., M.S.N. [address] [place] [phone] Scheduled Procedures Name Priority Associated Diagnoses Date/Ti me ENDOSCOPY SLEEP STATE Obstructive Sleep Apnea Adult Scheduled Referrals Name Type Priority Associated Diagnoses Orde r Schedule Patient Education - TAVR education visit (clinic) Outpatient Referral Routine Stenosis Aortic Valve Acquired Expected: 07/15/2024, Expires: 08/29/2025 documented as of this encounter Results * CT Chest Angiogram with IV Contrast (07/13/2024 1:36 PM VP OF TECHNOLOGY) Anatomical Region Laterality Modality Chest, Cardiovascular RST LO S, Thoracic ARZ LOS, Thoracic FLA LOS, Vascular Interventional ARZ LOS, Procedural, Vascular Interventional NWWI LOS N/A Computed Tomography, Computed Tomography Impressions 07/13/2024 3:16 PM VP OF TECHNOLOGY 1. Tricuspid aortic valve with calcific aortic [...] coronary FFRct analysis Narrative 07/13/2024 3:16 PM VP OF TECHNOLOGY EXAM: CT CARDIAC ANGIO STRUCTURAL HEART W [...] Plane N, R, L = 8 degrees SINGAPOREAN ; 5 degrees GROUND SUPPORT EQUIPMENT MECHANIC * Craniocaudal tilt at 0 degrees SINGAPOREAN = 7 degrees CAU * Craniocaudal tilt at 10 degrees S[place]AN = 7 degrees GROUND SUPPORT EQUIPMENT MECHANIC * Craniocaudal tilt at 10 degrees POLLACK [...] Plane N, R, L = 8 degrees SINGAPOREAN ; 5 degrees GROUND SUPPORT EQUIPMENT MECHANIC * Craniocaudal tilt at 0 degrees [place]AN = 7 degrees CAU * Craniocaudal tilt at 10 degrees S[place]AN = 7 degrees GROUND SUPPORT EQUIPMENT MECHANIC * Craniocaudal tilt at 10 degrees POLLACK [...] Arteries with IV Contrast (07/13/2024 1:36 PM VP OF TECHNOLOGY) Anatomical Region Laterality Modality Cardiac, Cardiovascular RST LOS, Thoracic ARZ LOS, Cardiovascular FLA LOS N/A Computed Tomography, Compute d Tomography Impressions 07/13/2024 3:16 PM VP OF TECHNOLOGY 1. Tricuspid aortic valve with calcific aortic [...] coronary FFRct analysis Narrative 07/13/2024 3:16 PM VP OF TECHNOLOGY EXAM: CT CARDIAC ANGIO STRUCTURAL HEART W [...] Plane N, R, L = 8 degrees SINGAPOREAN ; 5 degrees GROUND SUPPORT EQUIPMENT MECHANIC * Craniocaudal tilt at 0 degrees SINGAPOREAN = 7 degrees CAU * Craniocaudal tilt at 10 degrees S[place]AN = 7 degrees GROUND SUPPORT EQUIPMENT MECHANIC * Craniocaudal tilt at 10 degrees POLLACK [...] Plane N, R, L = 8 degrees SINGAPOREAN ; 5 degrees GROUND SUPPORT EQUIPMENT MECHANIC * Craniocaudal tilt at 0 degrees SINGAPOREAN = 7 degrees CAU * Craniocaudal tilt at 10 degrees SINGAPOREAN = 7 degrees GROUND SUPPORT EQUIPMENT MECHANIC * Craniocaudal tilt at 10 degrees POLLACK [...] sentfor coronary FFRct analysis Danyell Walsh, Ph.D. [facility] CT PROCEDUR ES Final Result * CT Abdomen Pelvis Angiogram with IV Contrast (07/13/2024 1:36 PM VP OF TECHNOLOGY) Anatomical Region Laterality Modality Abdomen, Pelvis, Cardiovascu lar RST LOS, Abdominal ARZ LOS, Vascular Interventional ARZ LOS, Abdominal FLA LOS, Vascular Interventional FLA LOS, Procedural, Vascular Interventional NWWI LOS N/A Computed Tomography, Compute d Tomography 07/13/2024 12:5 5 PM VP OF TECHNOLOGY Impressions 07/13/2024 2:16 PM VP OF TECHNOLOGY 1. Moderate peripheral arterial disease. No flow-limiting lesions. Noncalcified nodular plaques protrude into lumen of distal infrarenal aorta and right common iliac artery. Please see verified arterial measurements in QREADS. This examination was performed in conjunction with a CT of the Chest, which will be reported separately. Narrative 07/13/2024 2:16 PM VP OF TECHNOLOGY REVISED REPORT: EXAM: CT ABDOMEN PELVIS ANGIOGRAM [...] PROCEDUR ES Edited Result - Final * ECG 12 Lead (07/13/2024 1:11 PM VP OF TECHNOLOGY) Ventricular Rate ECG/Min 59 BPM MUSE MI Interval 210 ms MUSE QRSD Interval 156 ms MUSE QT Interval 478 ms MUSE QTC Interval 473 ms MUSE P [place] 58 degrees MUSE R [place] -79 degrees MUSE T Wave [place] -8 degrees MUSE 07/13/2024 1:11 PM VP OF TECHNOLOGY 07/13/2024 1:17 PM VP OF TECHNOLOGY Impressions MUSE - 07/13/2024 1:17 PM VP OF TECHNOLOGY Sinus bradycardia with 1st degree A-V block Premature atrial complexes Right bundle branch block with secondary ST-T abnormalities Left anterior fascicular block Bifascicular block No previous ECGs available Reviewed by SKYE Isabel Narrative Procedure Note Ken Kat M.D., M.P.H. - 07/13/2024 IMPRESSION: Sinus bradycardia with 1st degree A-V block Premature atrial complexes Right bundle branch block with secondary ST-T abnormalities Left anterior fascicular block Bifascicular block No previous ECGs available Reviewed by SKYE Isabel Danyell Walsh, Ph.D. ECG ORDERABLES Final Result MUSE NA * (ABNORMAL) NT-Pro B-Type Natriuretic Peptide (BNP) (07/13/2024 10:51 AM VP OF TECHNOLOGY) [facility] NT-Pro BNP 1121(H) <=540 pg/mL 07/13/2024 12:22 PM VP OF TECHNOLOGY DTL Comment: NT-proBNP values less than 300 [...] failure. Blood (Blood, Venous) 07/13/2024 10:51 AM VP OF TECHNOLOGY 07/13/2024 11:29 AM VP OF TECHNOLOGY Danyell Walsh, Ph.D. LAB BLOOD ADD-O N Final Result [facility] [address] [place] [address], [facility] [address] [place] [address] * (ABNORMAL) CBC with Differential, Blood (07/13/2024 10:51 AM VP OF TECHNOLOGY) [facility] Hemoglobin 11.8(L) 13.2 - 16.6 g/dL 07/13/2024 12:03 PM VP OF TECHNOLOGY DTL Hematocrit 34.8(L) 38.3 - 48.6 % 07/13/2024 12:03 PM VP OF TECHNOLOGY DTL Erythrocytes 3.65(L) 4.35 - 5.65 x10(12)/L 07/13/2024 12:03 PM VP OF TECHNOLOGY DTL MCV 95.3 78.2 - 97.9 fL 07/13/2024 12:03 PM VP OF TECHNOLOGY DTL RBC Distrib Width 12.3 11.8 - 14.5 % 07/13/2024 12:03 PM VP OF TECHNOLOGY DTL Platelet Count 231 135 - 317 x10(9)/L 07/13/2024 12:03 PM VP OF TECHNOLOGY DTL Leukocytes 6.4 3.4 - 9.6 x10(9)/L 07/13/2024 12:03 PM VP OF TECHNOLOGY DTL Neutrophils 3.78 1.56 - 6.45 x10(9)/L 07/13/2024 12:03 PM VP OF TECHNOLOGY DHPM Lymphocytes 1.82 0.95 - 3.07 x10(9)/L 07/13/2024 12:03 PM VP OF TECHNOLOGY DTL Monocytes 0.58 0.26 - 0.81 x10(9)/L 07/13/2024 12:03 PM VP OF TECHNOLOGY DTL Eosinophils 0.10 0.03 - 0.48 x10(9)/L 07/13/2024 12:03 PM VP OF TECHNOLOGY DTL Basophils 0.15(H) 0.01 - 0.08 x10(9)/L 07/13/2024 12:03 PM VP OF TECHNOLOGY DTL Blood (Blood, Venous) 07/13/2024 10:51 AM VP OF TECHNOLOGY 07/13/2024 11:13 AM VP OF TECHNOLOGY us Danyell Walsh, Ph.D. LAB BLOOD ADD-O N Final Result [facility] [address] [place] [address], [facility] DTL [facility] [address] [place] [address] * (ABNORMAL) Comprehensive Metabolic Panel (07/13/2024 10:51 AM VP OF TECHNOLOGY) [facility] Potassium, S 3.9 3.6 - 5.2 mmol/L 07/13/2024 12:22 PM VP OF TECHNOLOGY DTL Sodium, S 139 135 - 145 mmol/L 07/13/2024 12:22 PM VP OF TECHNOLOGY DTL Chloride, S 105 98 - 107 mmol/L 07/13/2024 12:22 PM VP OF TECHNOLOGY DTL Bicarbonate, S 22 22 - 29 mmol/L 07/13/2024 12:22 PM VP OF TECHNOLOGY DTL Anion Gap 12 7 - 15 07/13/2024 12:22 PM VP OF TECHNOLOGY DTL BUN (Blood Urea Nitrogen), S 27(H) 8 - 24 mg/dL 07/13/2024 12:22 PM VP OF TECHNOLOGY DTL Creatinine 1.94(H) 0.74 - 1.35 mg/dL 07/13/2024 12:22 PM VP OF TECHNOLOGY DTL Estimated GFR (eGFR) 35(L) >=60 mL/min/BS A 07/13/2024 12:22 PM VP OF TECHNOLOGY DTL Comment: Estimated GFR calculated using the 2020 CKD_EPI creatinine equation. Calcium, Total, S 9.1 8.8 - 10.2 mg/dL 07/13/2024 12:22 PM VP OF TECHNOLOGY DTL Glucose, S 118 70 - 140 mg/dL 07/13/2024 12:22 PM VP OF TECHNOLOGY DTL Protein, Total, S 6.5 6.3 - 7.9 g/dL 07/13/2024 12:22 PM VP OF TECHNOLOGY DTL Albumin, S 4.1 3.5 - 5.0 g/dL 07/13/2024 12:22 PM VP OF TECHNOLOGY DTL Aspartate Aminotransferase (AST), S 20 8 - 48 U/L 07/13/2024 12:22 PM VP OF TECHNOLOGY DTL Alkaline Phosphatase, S 54 40 - 129 U/L 07/13/2024 12:22 PM VP OF TECHNOLOGY DTL Alanine Aminotransferase (ALT), S 12 7 - 55 U/L 07/13/2024 12:22 PM VP OF TECHNOLOGY DTL Bilirubin, Total, S 0.3 0.0 - 1.2 mg/dL 07/13/2024 12:22 PM VP OF TECHNOLOGY DTL Blood (Blood, Venous) 07/13/2024 10:51 AM VP OF TECHNOLOGY 07/13/2024 11:29 AM VP OF TECHNOLOGY Danyell Walsh, Ph.D. LAB BLOOD ADD-O N Final Result [facility] [address] [place] [address], [facility] DTL [facility] [address] [place] [address] * Type and Screen (with Reflex Antibody ID) (07/13/2024 10:51 AM VP OF TECHNOLOGY) ABORh A Pos Not applicable 07/13/2024 4:01 PM VP OF TECHNOLOGY ETRM Antibody Screen Negative Negative 07/13/2024 4:11 PM VP OF TECHNOLOGY ETRM Type & Screen Expiration 09/10/2024 23:59 07/13/2024 4:01 PM VP OF TECHNOLOGY ETRM Testing Location Pedro DEFAULT 07/13/2024 11:17 AM VP OF TECHNOLOGY ETRM Blood (Blood, Venous) 07/13/2024 10:51 AM VP OF TECHNOLOGY 07/13/2024 11:17 AM VP OF TECHNOLOGY Danyell Walsh, Ph.D. LAB BLOOD BANK TEST ORDERABLES Final Result Performing Organization Address City/[facility] Co de Phone Number [facility] [address] [place] [address], [facility] ETRM [facility] [address] [place] [address] * Prothrombin Time (PT) (07/13/2024 10:51 AM VP OF TECHNOLOGY) Pathologist [facility] Prothrombin Time, P 11.3 9.4 - 12.5 sec 07/13/2024 11:33 AM VP OF TECHNOLOGY DTL INR 1.0 0.9 - 1.1 07/13/2024 11:33 AM VP OF TECHNOLOGY DTL Comment: ----ADDITIONAL INFORMATION---- Standard intensity warfarin therapeutic range: 2.0 to 3.0 High intensity warfarin therapeutic range: 2.5 to 3.5 Blood (Blood, Venous) 07/13/2024 10:51 AM VP OF TECHNOLOGY 07/13/2024 11:13 AM VP OF TECHNOLOGY Danyell Walsh, Ph.D. LAB BLOOD ADD-O N Final Result Performing Organization Address City/[facility]/ZIP Co de Phone Number [facility] [address] [place] [address], [facility] DTL [facility] [address] [place] [address] * DX Chest AP or PA and Lateral 2 Views (07/13/2024 9:48 AM VP OF TECHNOLOGY) Anatomical Region Laterality Modality Chest, Thoracic RST LOS, Tho racic ARZ LOS, Thoracic FLA LOS N/A Digital Radiography Impressions 07/13/2024 10:00 AM VP OF TECHNOLOGY No comparison. Dilated thoracic aorta including ascending aorta. Aortic calcifications. Mild cardiomegaly. Pulmonary vascular congestion and mild pulmonary edema characterized by prominent septal lines. Shallow inspiration exaggerates cardiac silhouette. No pleural effusions. Right upper quadrant surgical clips. Chest otherwise negative. Narrative 07/13/2024 10:00 AM VP OF TECHNOLOGY EXAM: DX CHEST AP OR PA AND LATERAL 2 VIEWS Procedure Note Nani Alexandra M.D. - 07/13/2024 EXAM: DX CHEST AP OR PA AND LATERAL 2 VIEWS IMPRESSION: No comparison. Dilated thoracic aorta including ascending aorta. Aorticcalcifications. Mild cardiomegaly. Pulmonary vascular congestion and mildpulmonary edema characterized by prominent septal lines. Shallowinspiration exaggerates cardiac silhouette. No pleural effusions. Right upper quadrant surgicalclips. Chest otherwise negative. Danyell Walsh, Ph.D. IMG DIAGNOSTIC IMAGING PROCEDURES Final Result documented in this encounter Visit Diagnoses Diagnosis Stenosis Aortic Valve Acquired- Primary Stenosis Aortic Valve Acquired Stenosis Aortic Valve Acquired documented in this encounter
--- OUTSIDE RECORDS SUMMARY | 2024-08-08 15:13 | XMS_ITS | Encounter Summary ---
Author Organization [facility] Address [address] [place] [address] Care Team Providers Care Shredded Filler Hopper Feeder Name Role Phone Unavailable Primary Care Provider Unavailabl e Encounter Details Date Type Department Care Team (Latest Contact Info) Description 07/13/2024 10:41 AM SCIENCE EDITOR - 07/13/2024 11:06 AM [facility] Hospital Encounter Department of Laboratory Medicine and Pathology, [place], [place] [address] [place] [address] Danyell Morris M.B.BDimpleS., Ph.D. [address] [place] [phone] Stenosis Aortic Valve Acquired Discharge Disposition: Home or Self Care Social History Tobacco Use Types Packs/Day Years Used Date Smoking Tobacco: Never Smokeless Tobacco: Never [facility] Utilities Answer Date Recorded In the past 12 months has [employer], oil, or water [employer] threatened to shut off services in your [...] your living situation today? I have a [facility] place to live 07/11/2024 Sex and Gender Information Value Date Recorded Sex Assigned at Male 07/11/2024 10:53 AM SCIENCE EDITOR Legal Sex Male 9:21 AM SCIENCE EDITOR Gender Identity Male 07/11/2024 10:53 AM SCIENCE EDITOR Sexual Orientation Straight 07/11/2024 10 :53 AM SCIENCE EDITOR documented as of this encounter Medications at Time of Discharge [...] (Latest Contact Info) Description 09/20/2024 9:00 AM SCIENCE EDITOR Clinical Communication Virtual Review in [place], [place] 200 [place] [address] 09/21/2024 11:20 AM SCIENCE EDITOR Appointment Department of Laboratory Medicine and Pathology, [facility] in [address] [phone] Enrico Knight APRN, C.N.P., M.S.N. [address] [place] [phone] 09/21/2024 11:40 AM SCIENCE EDITOR Ancillary Procedure Department of Cardiovascular Medicine in [address] [phone] Enrico Knight APRN, Chano.N.P., M.S.N. [address] [place] [phone] 09/21/2024 12:15 PM SCIENCE EDITOR Appointment Department of Cardiovascular Diseases in [address] [phone] Enrico Knight APRN, C.N.P., M.S.N. [address] [place] [phone] Discharge Disposition: Home or Self Care 09/22/2024 9:30 AM SCIENCE EDITOR Office Visit Department of Cardiovascular Medicine in [address] [phone] Edna Sandra APRN, C.N.P., M.S.N. [address] [place] [address] Scheduled Procedures Name Priority Associated Diagnoses Date/Ti me ENDOSCOPY SLEEP STATE Obstructive Sleep Apnea Adult documented as of this encounter Procedures Procedure Name Priority Date/Time Associated Diagnosis Comments NT-PRO B-TYPE NATRIURETIC PEPTIDE (BNP), S Routine 07/13/2024 10:51 AM SCIENCE EDITOR Stenosis Aortic Valve Acquired PROTHROMBIN TIME (PT), P Routine 07/13/2024 10:51 AM SCIENCE EDITOR Stenosis Aortic Valve Acquired CBC WITH DIFFERENTIAL, B Routine 07/13/2024 10:51 AM SCIENCE EDITOR Stenosis Aortic Valve Acquired TYPE AND SCREEN Routine 07/13/2024 10:51 AM SCIENCE EDITOR Stenosis Aortic Valve Acquired COMPREHENSIVE METABOLIC PANEL, S/P Routine 07/13/2024 10:51 AM SCIENCE EDITOR Stenosis Aortic Valve Acquired documented in this encounter Results * (ABNORMAL) NT-Pro B-Type Natriuretic Peptide (BNP) (07/13/2024 10:51 AM SCIENCE EDITOR) NT-Pro BNP 1121(H) <=540 pg/mL 07/13/2024 12:22 PM SCIENCE EDITOR DTL Comment: NT-proBNP values less than 300 [...] failure. Blood (Blood, Venous) 07/13/2024 10:51 AM SCIENCE EDITOR 07/13/2024 11:29 AM SCIENCE EDITOR Danyell Jones., Ph.D. LAB BLOOD ADD-O N Final Result [facility] [address] [place] [address], [facility] DTL [facility] [address] [place] [address] * (ABNORMAL) CBC with Differential, Blood (07/13/2024 10:51 AM SCIENCE EDITOR) Hemoglobin 11.8(L) 13.2 - 16.6 g/dL 07/13/2024 12:03 PM SCIENCE EDITOR DTL Hematocrit 34.8(L) 38.3 - 48.6 % 07/13/2024 12:03 PM SCIENCE EDITOR DTL Erythrocytes 3.65(L) 4.35 - 5.65 x10(12)/L 07/13/2024 12:03 PM SCIENCE EDITOR DTL MCV 95.3 78.2 - 97.9 fL 07/13/2024 12:03 PM SCIENCE EDITOR DTL RBC Distrib Width 12.3 11.8 - 14.5 % 07/13/2024 12:03 PM SCIENCE EDITOR DTL Platelet Count 231 135 - 317 x10(9)/L 07/13/2024 12:03 PM SCIENCE EDITOR DTL Leukocytes 6.4 3.4 - 9.6 x10(9)/L 07/13/2024 12:03 PM SCIENCE EDITOR DTL Neutrophils 3.78 1.56 - 6.45 x10(9)/L 07/13/2024 12:03 PM SCIENCE EDITOR DHPM Lymphocytes 1.82 0.95 - 3.07 x10(9)/L 07/13/2024 12:03 PM SCIENCE EDITOR DTL Monocytes 0.58 0.26 - 0.81 x10(9)/L 07/13/2024 12:03 PM SCIENCE EDITOR DTL Eosinophils 0.10 0.03 - 0.48 x10(9)/L 07/13/2024 12:03 PM SCIENCE EDITOR DTL Basophils 0.15(H) 0.01 - 0.08 x10(9)/L 07/13/2024 12:03 PM SCIENCE EDITOR DTL Blood (Blood, Venous) 07/13/2024 10:51 AM SCIENCE EDITOR 07/13/2024 11:13 AM SCIENCE EDITOR Danyell Walsh, Ph.D. LAB BLOOD ADD-O N Final Result [facility] [address] [place] [address], [place] DTL [facility] [address] [place] [address] [facility] [address] [place] [address] * (ABNORMAL) Comprehensive Metabolic Panel (07/13/2024 10:51 AM SCIENCE EDITOR) [facility] Potassium, S 3.9 3.6 - 5.2 mmol/L 07/13/2024 12:22 PM SCIENCE EDITOR DTL Sodium, S 139 135 - 145 mmol/L 07/13/2024 12:22 PM SCIENCE EDITOR DTL Chloride, S 105 98 - 107 mmol/L 07/13/2024 12:22 PM SCIENCE EDITOR DTL Bicarbonate, S 22 22 - 29 mmol/L 07/13/2024 12:22 PM SCIENCE EDITOR DTL Anion Gap 12 7 - 15 07/13/2024 12:22 PM SCIENCE EDITOR DTL BUN (Blood Urea Nitrogen), S 27(H) 8 - 24 mg/dL 07/13/2024 12:22 PM SCIENCE EDITOR DTL Creatinine 1.94(H) 0.74 - 1.35 mg/dL 07/13/2024 12:22 PM SCIENCE EDITOR DTL Estimated GFR (eGFR) 35(L) >=60 mL/min/BS A 07/13/2024 12:22 PM SCIENCE EDITOR DTL Comment: Estimated GFR calculated using the 2020 CKD_EPI creatinine equation. Calcium, Total, S 9.1 8.8 - 10.2 mg/dL 07/13/2024 12:22 PM SCIENCE EDITOR DTL Glucose, S 118 70 - 140 mg/dL 07/13/2024 12:22 PM SCIENCE EDITOR DTL Protein, Total, S 6.5 6.3 - 7.9 g/dL 07/13/2024 12:22 PM SCIENCE EDITOR DTL Albumin, S 4.1 3.5 - 5.0 g/dL 07/13/2024 12:22 PM SCIENCE EDITOR DTL Aspartate Aminotransferase (AST), S 20 8 - 48 U/L 07/13/2024 12:22 PM SCIENCE EDITOR DTL Alkaline Phosphatase, S 54 40 - 129 U/L 07/13/2024 12:22 PM SCIENCE EDITOR DTL Alanine Aminotransferase (ALT), S 12 7 - 55 U/L 07/13/2024 12:22 PM SCIENCE EDITOR DTL Bilirubin, Total, S 0.3 0.0 - 1.2 mg/dL 07/13/2024 12:22 PM SCIENCE EDITOR DTL Blood (Blood, Venous) 07/13/2024 10:51 AM SCIENCE EDITOR 07/13/2024 11:29 AM SCIENCE EDITOR Danyell Walsh, Ph.D. LAB BLOOD ADD-O N Final Result [facility] [address] [place] [address], [facility] DTL [facility] [address] [place] [address] * Type and Screen (with Reflex Antibody ID) (07/13/2024 10:51 AM SCIENCE EDITOR) Pathologist [facility] [place] ABORh A Pos Not applicable 07/13/2024 4:01 PM SCIENCE EDITOR ETRM Antibody Screen Negative Negative 07/13/2024 4:11 PM SCIENCE EDITOR ETRM Type & Screen Expiration 09/10/2024 23:59 07/13/2024 4:01 PM SCIENCE EDITOR ETRM Testing Location Pedro DEFAULT 07/13/2024 11:17 AM SCIENCE EDITOR ETRM Blood (Blood, Venous) 07/13/2024 10:51 AM SCIENCE EDITOR 07/13/2024 11:17 AM SCIENCE EDITOR Danyell GuilloryBDimpleSDimple, Ph.D. LAB BLOOD BANK TEST ORDERABLES Final Result [facility] [address] [place] [address], [facility] ETRM [facility] [address] [place] [address] * Prothrombin Time (PT) (07/13/2024 10:51 AM SCIENCE EDITOR) Prothrombin Time, P 11.3 9.4 - 12.5 sec 07/13/2024 11:33 AM SCIENCE EDITOR DTL INR 1.0 0.9 - 1.1 07/13/2024 11:33 AM SCIENCE EDITOR DTL Comment: ----ADDITIONAL INFORMATION---- Standard intensity warfarin therapeutic range: 2.0 to 3.0 High intensity warfarin therapeutic range: 2.5 to 3.5 Blood (Blood, Venous) 07/13/2024 10:51 AM SCIENCE EDITOR 07/13/2024 11:13 AM SCIENCE EDITOR Danyell Walsh, Ph.D. LAB BLOOD ADD-O N Final Result [facility] [address] [place] [address], [facility] [place] [address] [place] [address] documented in this encounter Visit Diagnoses Diagnosis Stenosis Aortic Valve Acquired documented in this encounter
--- OUTSIDE RECORDS SUMMARY | 2024-08-08 15:13 | XMS_ITS | Encounter Summary ---
Author Organization [facility] Address [address] [place] [address] Care Team Providers Care Vp [employer] Name Role Phone Unavailable Primary Care Provider Unavailabl e Reason for Referral * Outpatient (Routine) - Closed Specialty Diagnoses / Procedures Referred By Lloydac t Referred To Contact Diagnoses Stenosis Aortic Valve Acquired Procedures DX Chest AP or PA and Lateral 2 Views Danyell Morris M.B.B.S., Ph.D. [address] [place] [phone] Phone: tel: fax: [facility] Referral ID Status Reason Start Date Expiration Date Visits Re quested Visits Authorized [id number] Closed 05/30/2024 05/30/2025 1 1 OSAL MAN Reason for Visit * Outpatient (Routine) - Closed Specialty Diagnoses / Procedures Referred By Contac t Referred To Contact Diagnoses Stenosis Aortic Valve Acquired Procedures DX Chest AP or PA and Lateral 2 Views Danyell Morris M.B.B.S., Ph.D. [address] [place] [phone] Phone: tel: fax: [facility] Referral ID Status Reason Start Date Expiration Date Visits Re quested Visits Authorized [id number] Closed 05/30/2024 05/30/2025 1 1 Encounter Details Date Type Department Care Team (Latest Contact Info) Description 07/13/2024 9:41 AM DISPOSAL MAN - 07/13/2024 10:40 AM DISPOSAL MAN Hospital Encounter Department of Radiology, [facility], in [place], [place] [address] [place] [address] Danyell Morris M.B.B.S., Ph.D. [address] [place] [address] Stenosis Aortic Valve Acquired Discharge Disposition: Home or Self Care Social History Tobacco Use Types Packs/Day Years Used Date Smoking Tobacco: Never Smokeless Tobacco: Never [facility] Utilities Answer Date Recorded In the [...] money to buy more. Never true 07/11/20 Within the past 12 months, t he [...] your living situation today? I have a [facility] place to live 07/11/2024 Sex and Gender Information Value Date Recorded Sex Assigned at Male 07/11/2024 10:53 AM DISPOSAL MAN Legal Sex Male 9:21 AM DISPOSAL MAN Gender Identity Male 07/11/2024 10:53 AM DISPOSAL MAN Sexual Orientation Straight 07/11/2024 10 :53 AM DISPOSAL MAN documented as of this encounter Medications at [...] (Latest Contact Info) Description 09/20/2024 9:00 AM DISPOSAL MAN Clinical Communication Virtual Review in [place], [place] [address] [place] [address] 09/21/2024 11:20 AM DISPOSAL MAN Appointment Department of Laboratory Medicine and Pathology, [facility], in [place], [place] [address] [place] [address] Enrico Knight, LILIBETH, C.N.P., M.S.N. [address] [place] [phone] 09/21/2024 11:40 AM DISPOSAL MAN Ancillary Procedure Department of Cardiovascular Medicine in [place], [place] [address] [place] [phone] Enrico Knight APRN, C.N.P., M.S.N. [address] [place] [phone] 09/21/2024 12:15 PM DISPOSAL MAN Appointment Department of Cardiovascular Diseases in [place], [place] [address] [place] [phone] Enrico Knight APRN, C.N.P., M.S.N. [address] [place] [phone] Discharge Disposition: Home or Self Care 09/22/2024 9:30 AM DISPOSAL MAN Office Visit Department of Cardiovascular Medicine in [place], [place] [address] [place] [phone] Edna Sandra APRN, C.N.P., M.S.N. [address] [place] [phone] Scheduled Procedures Name Priority Associated Diagnoses Date/Ti me ENDOSCOPY SLEEP STATE Obstructive Sleep Apnea Adult documented as of this encounter Procedures Procedure Name Priority Date/Time Associated Diagnosis Comments DX CHEST AP OR PA AND LATERAL 2 VIEWS RAD - Routine (most inpatients and all outpatients) 07/13/2024 9:48 AM DISPOSAL MAN Stenosis Aortic Valve Acquired documented in this encounter Results * DX Chest AP or PA and Lateral 2 Views (07/13/2024 9:48 AM DISPOSAL MAN) Anatomical Region Laterality Modality Chest, Thoracic RST LOS, Tho racic ARZ LOS, Thoracic FLA LOS N/A Digital Radiography Impressions 07/13/2024 10:00 AM DISPOSAL MAN No comparison. Dilated thoracic aorta including ascending aorta. Aortic calcifications. Mild cardiomegaly. Pulmonary vascular congestion and mild pulmonary edema characterized by prominent septal lines. Shallow inspiration exaggerates cardiac silhouette. No pleural effusions. Right upper quadrant surgical clips. Chest otherwise negative. Narrative 07/13/2024 10:00 AM DISPOSAL MAN EXAM: DX CHEST AP OR PA AND [...]
--- OUTSIDE RECORDS SUMMARY | 2024-08-08 15:13 | XMS_ITS | Encounter Summary ---
Author Organization [facility] Address [address] [place] [address] Care Team Providers Care Supervisor Coremaker Name Role Phone Unavailable Primary Care Provider Unavailabl e Reason for Visit * Appointment Request (Routine) - Closed Specialty Diagnoses / Procedures Referred By Contjuan t Referred To Contact Cardiovascular Surgery Diagnoses Stenosis Aortic Valve Acquired Referral ID Status Reason Start Date Expiration Date Visits Re quested Visits Authorized [id number] Closed 05/23/2024 05/23/2025 1 1 Encounter Details Date Type Department Care Team (Latest Contact Info) Description 07/15/2024 4:30 PM SURVEY SUPERINTENDENT Comprehensive Visit Department of Cardiovascular Surgery in [place], [place] [address] [place] [address] Rafael Shah M.D. [address] [place] [address] Acquired Aortic Valve Disorder (Primary Dx) Social History Tobacco Use Types Packs/Day Years Used Date Smoking Tobacco: Never Smokeless Tobacco: Never [facility] Utilities Answer Date Recorded In [...] your living situation today? I have a [facility] place to live 07/11/2024 Sex and Gender Information Value Date Recorded Sex Assigned at Male 07/11/2024 10:53 AM SURVEY SUPERINTENDENT Legal Sex Male 9:21 AM SURVEY SUPERINTENDENT Gender Identity Male 07/11/2024 10:53 AM SURVEY SUPERINTENDENT Sexual Orientation Straight 07/11/2024 10 :53 AM SURVEY SUPERINTENDENT documented as of this encounter Consult Notes * Rafael Shah M.D. - 07/15/2024 4:30 PM CST I was asked to see this patient for transcatheter aortic valve insertion. This patient's STS risk factors include: Age 79. Sex man. Race . Weight 98 kg. Height 175.3 cm. BMI 31.9 kg/m2. Hematocrit 34.8%. WBC 6400. Platelet count 231,000. Creatinine 1.94 mg/dL, eGFR 35 mL/min. Dialysis no. Hypertension he had. Immunosuppression no. Peripheral vascular disease no.Varicose veins no. Cerebrovascular disease no. Mediastinal XRT no. Cancer no. FHX CAD no. Sleep apnea yes. Liver disease no, total bilirubin 0.3 mg/dL. Unresponsive state no. Syncope []. Diabetes no. Endocarditis no. Chronic lung disease no. Right carotid artery stenosis no. Left carotid artery stenosis no. Illicit drug use no. Alcohol use no. Pneumonia the. Tobacco use never. Home oxygen no. Previous cardiac procedure no. Previous pacemaker no. Previous CABG no. Previous valve no. Previous PCI no. Previous ID no. Heart failure yes, chronic, times years. NYHA class 3. Presentation no. Shock no. Atrial fibrillation no. Atrial flutter no. 3rd degree heart block no. 2nd degree heart block no.Sick sinus syndrome no. Vtach/Vfib no. Anticoagulation no. Medical inotropes no. ADP inhibitor the.JACOB or ARB yes, lisinopril. Beta saranya no. Steroids no. Glycoprotein IIa/IIIa inhibitor no. Resuscitation no. Number of diseased vessels query none. Left main stenosis minimal. LAD stenosis mild. Ejection fraction 55%, no regional wall motion abnormalities. yes. MS no. AR mild. MR trivial. TR mild. AV disease etiology degenerative. Incidence of operation 1. Status elective. Mechanical circulatory support no. PMH: Rheumatic fever as a child. Physical exam: Height 175.3 cm, weight 98 kg, BMI 31.9 kg/m2, pulse 69 beats/min, blood pressure 110/67 mm Hg. General: Elderly man. Sitting in the chair. No acute distress. He does not look frail. Neurologic: Awake, cooperative, and conversant. He moves all extremities spontaneously. Frailty date June 12, 2024: 5 meter walk test not frail (5.1, 5.3, 4.9). Albumin not frail (4.1 gm/dL). CRAFT ADL's not frail (6/6). CT scan date July 13, 2024. I personally reviewed the images. Minimal right iliofemoral artery diameter 9 mm. Minimal left iliofemoral artery diameter 9 mm. The patient is okay for catheterization laboratory SHERIE. Number of aortic valve cusps 3. Calcium score 5439. Diameter 27 mm. Area 537 mm2.Perimeter 84 mm. LVOT area I have 165 mm2. Sinuses of Valsalva: right 36 mm, left 39 mm, non 39 mm. Sinotubular junction height 25 mm in diameter 33 mm. There was [id number] coronary artery calcification. I do not think there is a that warrants intervention. This patient be a candidate for the 26 mm Rena S3 ultra valve with oversize of -3% for the aortic valve annulus and -8% for the LVOT. TTE date April 15, 2024. I personally reviewed the images. Velocity 5.6 m/s. Gradient 74 mm Hg. CHUCKY 0.81 cm2. CHUCKY index 0.38 cm2/m2. Estimated RVSP 37/114 mm Hg. LVOT velocity 1.0 m/s. Basal septum 11 mm. LVOT diameter 24 mm. ECG date July 13, 2024. Sinus bradycardia first-degree AV block. Right bundle branch block. Left anterior fascicular block. Impression: 1. Symptomatic severe aortic valve stenosis. 2. Ejection fraction 55%. 3. NYHA class 3. 4. BMI 31.9 kg/m2. 5. Chronic renal failure, stage III. 6. Hypertension. 7. Obstructive sleep apnea. 8. Lisinopril therapy. 9. First-degree AV block. 10. Right bundle branch block. 11. Left anterior fascicular block. Plan: I met with the patient and his significant other. I discussed the diagnosis and natural history of the symptomatic severe aortic valve stenosis. I discussed treatment options to include continued medical management, transcatheter aortic valve insertion, and surgery. The patient would like to move ahead with transcatheter aortic valve insertion. The risks, benefits, and alternatives to the planned procedure were discussed in detail, including the risk of exposure to COVID-19 within the facility. All questions pertaining to the procedure and risks were answered. The patient agreed to proceed. I discussed the risks of surgery including but not limited to bleeding, transfusion, infection, renal failure requiring dialysis, prolonged pulmonary convalescence requiring tracheostomy or gastrostomy, myocardial infarction, stroke, need for pacemaker, and . I discussed living will and advanced directives. Patient agrees to be a full code for two months around the time of operation. I discussed team concept. All questions were answered. EY SUPERINTENDENT documented in this encounter Plan of Treatment Upcoming Encounters Date Type Department Care Team (Latest Contact Info) Description 09/20/2024 9:00 AM SURVEY SUPERINTENDENT Clinical Communication Virtual Review in [place], [place] 200 [place] [address] 09/21/2024 11:20 AM SURVEY SUPERINTENDENT Appointment Department of Laboratory Medicine and Pathology, [facility], in [address] [place] [address] Enrico Knight APRN, C.NArnaldo., M.S.N. [address] [place] [phone] 09/21/2024 11:40 AM SURVEY SUPERINTENDENT Ancillary Procedure Department of Cardiovascular Medicine in [place], [place] [address] [place] [phone] Enrico Knight APRN, C.N.P., M.S.N. [address] [place] [phone] 09/21/2024 12:15 PM SURVEY SUPERINTENDENT Appointment Department of Cardiovascular Diseases in [place], [place] [address] [place] [phone] Enrico Knight APRN, C.NArnaldo., M.S.N. [address] [place] [phone] Discharge Disposition: Home or Self Care 09/22/2024 9:30 AM SURVEY SUPERINTENDENT Office Visit Department of Cardiovascular Medicine in [address] [phone] Edna Sandra APRN, C.NДмитрий, M.S.N. [address] [place] [phone] Scheduled Procedures Name Priority Associated Diagnoses Date/Ti me ENDOSCOPY SLEEP STATE Obstructive Sleep Apnea Adult documented as of this encounter Visit Diagnoses Diagnosis Acquired Aortic Valve Disorder- Primary documented in this encounter
--- OUTSIDE RECORDS SUMMARY | 2024-08-08 15:13 | XMS_ITS | Encounter Summary ---
Author Organization [facility] Address [address] [place] [address] Care Team Providers Care Housekeeper/Custodian/Laundry Worker Name Role Phone Unavailable Primary Care Provider Unavailabl e Reason for Visit * Outpatient (Routine) - Closed Specialty Diagnoses / Procedures Referred By Contact Referred To Contact Cardiovascular Diseases / Cardiovascular Disease Diagnoses Stenosis Aortic Valve Acquired Tanihsa Freed M.D. [address] [place] [phone] Phone: tel: fax: [facility] Referral ID Status Reason Start Date Expiration Date Visits Re quested Visits Authorized [id number] Closed 04/29/2024 10/29/2025 1 1 Encounter Details Date Type Department Care Team (Latest Contact Info) Description 07/15/2024 3:30 PM STRAW HAT BRIM CUTTER OPERATOR Comprehensive Visit Department of Cardiovascular Medicine in [place], [place] [address] [place] [phone] Nelson Jones M.D., Ph.D. [address] [place] [phone] Stenosis Aortic Valve Acquired Social History Tobacco Use Types Packs/Day Years Used Date Smoking Tobacco: Never Smokeless Tobacco: Never [facility] Utilities Answer Date Recorded In the past [...] your living situation today? [facility] 07/11/2024 Sex and Gender Information Value Date Recorded Sex Assigned at Male 07/11/2024 10:53 AM STRAW HAT BRIM CUTTER OPERATOR Legal Sex Male 9:21 AM STRAW HAT BRIM CUTTER OPERATOR Gender Identity Male 07/11/2024 10:53 AM STRAW HAT BRIM CUTTER OPERATOR Sexual Orientation Straight 07/11/2024 10 :53 AM STRAW HAT BRIM CUTTER OPERATOR documented as of this encounter Last Filed Vital Signs Vital Sign Reading Time Taken Comments Blood Pressure 110/67 07/15/2024 2:53 PM STRAW HAT BRIM CUTTER OPERATOR Pulse 69 07/15/2024 2:53 PM STRAW HAT BRIM CUTTER OPERATOR Temperature - - Respiratory Rate - - Oxygen Saturation - - Inhaled Oxygen Concentration - - Weight 98 kg (216 lb 0.8 oz) 07/15/2024 2:53 PM STRAW HAT BRIM CUTTER OPERATOR Height 175.3 cm (5' 9.02) 07/15/2024 2:53 PM CS T Body Mass Index 31.89 07/15/2024 2:53 PM STRAW HAT BRIM CUTTER OPERATOR documented in this encounter Consult Notes * Olu Paniagua M.D. - 07/15/2024 3:30 PM CST SUBJECTIVE Referring Provider: Tanisha Freed M.D. CHIEF COMPLAINT/REASON FOR CONSULT Aortic stenosis HISTORY OF PRESENT ILLNESS Mr. Neal Gale is a very pleasant 79 y.o. male with medical history including aortic valve stenosis, hypertension, chronic kidney disease stage 3,obesity, and obstructive sleep apnea. Patient presents as a referral regarding symptomatic severe aortic stenosis. Mr. Gale reports worsening exertional dyspnea over the past few years with increased fatigue and loss of exercise stamina. He denies chest pain, or syncope. No lightheadedness/dizziness, palpitations, orthopnea, PND, or pedal edema. REVIEW OF SYSTEMS Pertinent items are noted in HPI; all other review of systems was negative. OBJECTIVE Vitals: 07/15/24 1453 BP: 110/67 BP Location: Left arm Patient Position: Sitting Cuff Size: Regular Pulse: 69 Weight: 98 kg Height: 175.3 cm BP Readings from Last 3 Encounters: 07/15/24 110/67 04/12/24 112/68 12/25/15 132/66 PHYSICAL EXAMINATION General: WN/WD, no acute distress, pleasant, alert HEENT: AT/NC, MMM, EOMI Neck: No JVD Heart: RRR, 3/6 late-peaking systolic murmur heard best at the second right intercostal space Lungs: Non-labored breathing, CTAB, no crackles or wheezing Abd: Soft, NT/ND EXT: No lower extremity edema Skin: warm, dry, no cyanosis or clubbing DIAGNOSTICS I have reviewed the patient's current laboratory, imaging, and other diagnostic studies. Pertinent laboratory studies have been reviewed and are notable for: Hemoglobin 11.8, platelets 231, INR 1.0, creatinine 1.94 Pertinent imaging studies have been reviewed and are notable for: Transthoracic echocardiogram: 1. Severe calcific aortic valve stenosis. Mean systolic Doppler gradient 74 mm Hg. Calculated valvearea 0.8 cm2. Mild aortic regurgitation. 2. Cardiology consultation recommended for further evaluation of the aortic valve stenosis. 3. Mildly enlarged left ventricular chamber size. Estimated ejection fraction 55%. No regional wallmotion abnormalities. 4. Normal right ventricular chamber size and systolic function. Estimated right ventricular systolic pressure 37 mm Hg. 5. Normal inferior vena cava size with normal inspiratory collapse (>50%). 6. Normal mid ascending aorta diameter of 39 mm. 7. No pericardial effusion. CCTA TAVR Protocol: Annulus Dimensions Area: 5.37 cm2 Avg Diam: 26.2 mm Perimeter: 83.8 mm AV Calcium Score: 5439. LVOT Dimensions Area: 5.65 cm2 Avg Diam: 26.8 mm Perimeter: 85.3 mm LVOT Calcifications: No calcifications in the left ventricular outflow tract. LCA Height: 15.2 mm RCA Height: 15.6 mm STJ Ht./Diam: 25.1 mm / 32.9 mm Coplanar Angle: 8 degrees UPPER SORBIAN ; 5 degrees DIAMOND DIE POLISHER Cusp Overlap Angle: 11 degrees POLLACK ; 20 degrees CAU Coronary Arteries: Extensive calcified plaque causes moderate stenoses in distal left circumflex and first and second obtuse marginal branches. Proximal obstructive disease (as defined in the body ofthe report for pre-TAVR evaluation): Absent Peripheral Arteries Adequate Iliofemoral Caliber: Yes Tortuosity: Mild AROMATHERAPIST Bifurcation: Low bilaterally Subclavian / Brachiocephalic Tortuosity: Mild Incidental Findings: None Coronary Angiogram: Will defer invasive coronary angiography given results of CTA ASSESSMENT / PLAN Mr. Gale presents regarding symptomatic severe aortic valve stenosis. The most recent TTE is as above with a mean AV gradient of 74 mmHg, CHUCKY 0.8 cm2, LVEF 55 %. There is a Class 1 indication for AVR. After discussion with patient and the heart team, will plan for TAVR. Root anatomy is amenable to SHERIE with a 26 mm Rena valve and iliofemoral access is acceptable for a transfemoral approach. Valve is heavily calcified. May require predilation. Patient has bifascicular block and is at elevated risk of requiring a pacemaker. # Severe Symptomatic Aortic Stenosis # Bifascicular block # Hypertension # Chronic kidney disease stage 3 # Obesity # Obstructive sleep apnea Cancer W/U Needed: No PPM already in place: No Frailty assessment: Frailty assessment was performed and documented in the EMR. Unlikely SDD due to age and frailty. Dental/Panorex: Clear STS predicted risk of mortality STS operative mortality risk for isolated AVR 3.55% Procedural planning Access: transfemoral TAVR -- Prosthetic valve: right common femoral artery -- Pigtail catheter: right radial artery -- Temporary pacemaker: left femoral vein Valve sizing choice: 26 mm Stewart RENA 3 - LVOT calcium: No calcifications in the left ventricular outflow tract. - Ca score: 5439. - ECG: Sinus bradycardia with first degree AV block, RBBB, and LAFB - [place] interval: 156 ms - QRS duration: 210 ms - No Cephalosporin allergy. 2g Ancef prior to TAVR. - Using the ARC HBR Tool, patient is considered a HBR: Yes - Post SHERIE Anticoagulation Plan: aspirin 81 mg daily (HBR) We had a thorough discussion regarding the risks/benefits/alternatives of TAVR. The risks mentionedto them include but are not limited to vascular complications in 3-5%, renal dysfunction <5%, need for pacemaker placement 20+%, myocardial infarction <1%, coronary occlusion 1%, stroke 2-3%, cardiac perforation <1%, need for emergency open heart surgery <1%, <1%. We reviewed the possible need for temporary permanent or permanent pacemaker implantation which carries a complication rate of 3-4%, including, but not limited to, pacemaker pocket hematoma (severe hematoma requiring pocket evacuation), vascular bleeding, lead dislodgement (may require lead revision), lead perforation (may require pericardiocentesis) and tricuspid valve injury. They verbalized understanding. All questions answered to their satisfaction. PATIENT EDUCATION Ready to learn, no apparent learning barriers were identified; learning preferences include listening. Explained diagnosis and treatment plan; patient expressed understanding of the content. Patient seen and discussed with Dr. Jones, who assisted with formulation of the above assessment and plan. Olu Paniagua MD Fellow, Cardiovascular Medicine [facility] W HAT BRIM CUTTER OPERATOR * Nelson Jones M.D., Ph.D. - 07/15/2024 3:30 PM CST Attestation note It was nice meeting this 79 year old gentleman from [facility] in clinic today at the kind request of my colleague Danyell Morris MD to discuss TAVR. Patient accompanied by his . I concur with the note of Olu Paniagua MD. I agree with the recommendation for TAVR, with a very high likelihood of adjunctive permanent pacemaker implantation. Goals, risks and alternatives discussed. Patient keen to proceed as scheduled for August 03 2024. W HAT BRIM CUTTER OPERATOR documented in this encounter Plan of Treatment Upcoming Encounters Date Type Department Care Team (Latest Contact Info) Description 09/20/2024 9:00 AM STRAW HAT BRIM CUTTER OPERATOR Clinical Communication Virtual Review in [place], [place] 200 [place] [address] 09/21/2024 11:20 AM STRAW HAT BRIM CUTTER OPERATOR Appointment Department of Laboratory Medicine and Pathology, [facility] in [address] [phone] Enrico Knight APRN C.N.P., M.S.N. [address] [place] [phone] 09/21/2024 11:40 AM STRAW HAT BRIM CUTTER OPERATOR Ancillary Procedure Department of Cardiovascular Medicine in [address] [phone] Enrico Knight APRN, C.N.P., M.S.N. [address] [place] [phone] 09/21/2024 12:15 PM STRAW HAT BRIM CUTTER OPERATOR Appointment Department of Cardiovascular Diseases in [address] [phone] Enrico Knight APRN, C.N.P., M.S.N. [address] [place] [phone] Discharge Disposition: Home or Self Care 09/22/2024 9:30 AM STRAW HAT BRIM CUTTER OPERATOR Office Visit Department of Cardiovascular Medicine in [address] [phone] Edna Sandra APRN, C.N.P., M.S.N. [address] [place] [phone] Scheduled Procedures Name Priority Associated Diagnoses Date/Ti me ENDOSCOPY SLEEP STATE Obstructive Sleep Apnea Adult documented as of this encounter Visit Diagnoses Diagnosis Stenosis Aortic Valve Acquired documented in this encounter
--- OUTSIDE RECORDS SUMMARY | 2024-08-08 15:13 | XMS_ITS | Encounter Summary ---
Author Organization [facility] Address [address] [place] [address] Care Team Providers Care Acoustical Tile Carpenters Supervisor Name Role Phone Elsewhere, Pcp Primary Care Provider Unavailabl e Reason for Visit * Reason Onset Date Comments Forms 07/14/2024 Dental Clearance Encounter Details Date Type Department Care Team (Latest Contact Info) Description 07/14/2024 Clinical Communication Department of Cardiovascular Medicine in [place], [place] [address] [place] [address] Danyell Morris M.B.B.S., Ph.D. [address] [place] [phone] Forms (Dental Clearance) Social History Tobacco Use Types Packs/Day Years Used Date Smoking Tobacco: Never Smokeless Tobacco: Never [facility] Utilities Answer Date Recorded In the past 12 months has [facility] [place], gas, oil, or water [employer] threatened to shut off services in your [...] your living situation today? I have a [facility] place to live 07/11/2024 Sex and Gender Information Value Date Recorded Sex Assigned at Male 07/11/2024 10:53 AM PORTAL ARCHITECT Legal Sex Male 9:21 AM PORTAL ARCHITECT Gender Identity Male 07/11/2024 10:53 AM PORTAL ARCHITECT Sexual Orientation Straight 07/11/2024 10 :53 AM PORTAL ARCHITECT documented as of this encounter Plan of Treatment Upcoming Encounters Date Type Department Care Team (Latest Contact Info) Description 09/20/2024 9:00 AM PORTAL ARCHITECT Clinical Communication Virtual Review in [place], [place] 200 [place] [address] 09/21/2024 11:20 AM PORTAL ARCHITECT Appointment Department of Laboratory Medicine and Pathology, [facility], in [address] [phone] Enrico Knight APRN, C.N.P., M.S.N. [address] [place] [phone] 09/21/2024 11:40 AM PORTAL ARCHITECT Ancillary Procedure Department of Cardiovascular Medicine in [address] [phone] Enrico Knight APRN, C.N.P., M.S.N. [address] [place] [phone] 09/21/2024 12:15 PM PORTAL ARCHITECT Appointment Department of Cardiovascular Diseases in [place], [place] [address] [place] [address] Enrico Knight APRN, C.N.P., M.S.N. [address] [place] [address] Discharge Disposition: Home or Self Care 09/22/2024 9:30 AM PORTAL ARCHITECT Office Visit Department of Cardiovascular Medicine in [place], [place] [address] [place] [phone] Edna Sandra APRN, Chano.N.P., M.S.N. [address] [place] [phone] Scheduled Procedures Name Priority Associated Diagnoses Date/Ti me ENDOSCOPY SLEEP STATE Obstructive Sleep Apnea Adult documented as of this encounter Visit Diagnoses Not on filedocumented in this encounter Care Teams Acoustical Tile Carpenters Supervisor Relationship Specialty Start Date End Date Elsewhere, Pcp PCP - General Internal Medicine 08/03/24 documented as of this encounter
--- OUTSIDE RECORDS SUMMARY | 2024-08-08 15:13 | XMS_ITS | Encounter Summary ---
Author Organization [facility] Address [address] [place] [address] Care Team Providers Care Mixing Technician Name Role Phone Unavailable Primary Care Provider Unavailabl e Reason for Visit * Reason Onset Date Comments Triage 04/29/2024 Encounter Details Date Type Department Care Team (Latest Contact Info) Description 04/29/2024 Clinical Communication Department of Cardiovascular Medicine in [place], [place] [address] [place] [address] Charter RepresentativeMorgan M.D. Triage Social History Tobacco Use Types Packs/Day Years Used Date Smoking Tobacco: Never Smokeless Tobacco: Never Nutrition Answer Date Recorded Nutrition: EVOO Fat Source 13 03/27 Nutrition: Servings of Fruits/Vegetables per Day Not on file 03/27/2020 Dental Answer Date Recorded Dental: Regular Dentist Unknown 11/02/19 21 Sex and Gender Information Value Date Recorded Sex Assigned at Male 07/11/2024 10:53 AM PRINTING ASSISTANT Legal Sex Male 9:21 AM PRINTING ASSISTANT Gender Identity Male 07/11/2024 10:53 AM PRINTING ASSISTANT Sexual Orientation Straight 07/11/2024 10 :53 AM PRINTING ASSISTANT documented as of this encounter Miscellaneous Notes * Telephone Encounter - Marga Hatch R.N. - 05/04/2024 1:25 PM CDT Pre-appointment valve clinic triage/record review. The following information has been collected from the medical record. It is not a comprehensive summary and has not been verified with the patient. The Appointment Triage Team does not establish a relationship with the patient, nor manage the patient's care outside of an initial review for the purposes of an appointment triage. For any questions, please contact the patient's primary provider. INTERNAL REFERRING PROVIDER: Tanisha Freed M.D. CHIEF COMPLAINT/REASON FOR VISIT Aortic Stenosis RECOMMENDATIONS TO APPOINTMENT OFFICE Valve TAVR Pathway (Patient is seen in valve clinic first, then goes to TAVR clinic) Add Vo2 test after Valve clinic, but prior to TAVR clinic * Telephone Encounter - Haylee Salcedo - 04/29/2024 2:14 PM CDT 5- 2850 documented in this encounter Plan of Treatment Upcoming Encounters Date Type Department Care Team (Latest Contact Info) Description 09/20/2024 9:00 AM PRINTING ASSISTANT Clinical Communication Virtual Review in [address] [phone] 09/21/2024 11:20 AM PRINTING ASSISTANT Appointment Department of Laboratory Medicine and Pathology, [facility], in [address] [phone] Enrico Knight APRN, C.N.P., M.S.N. [address] [place] [phone] 09/21/2024 11:40 AM PRINTING ASSISTANT Ancillary Procedure Department of Cardiovascular Medicine in [address] [phone] Enrico Knight APRN, C.N.P., M.S.N. [address] [place] [phone] 09/21/2024 12:15 PM PRINTING ASSISTANT Appointment Department of Cardiovascular Diseases in [address] [phone] Enrico Knight APRN, C.N.P., M.S.N. [address] [place] [address] Discharge Disposition: Home or Self Care 09/22/2024 9:30 AM PRINTING ASSISTANT Office Visit Department of Cardiovascular Medicine in [place], [place] [address] [place] [phone] Edna Sandra APRN, C.NДмитрий, M.S.N. [address] [place] [phone] Scheduled Procedures Name Priority Associated Diagnoses Date/Ti me ENDOSCOPY SLEEP STATE Obstructive Sleep Apnea Adult documented as of this encounter Visit Diagnoses Not on filedocumented in this encounter
--- OUTSIDE RECORDS SUMMARY | 2024-08-08 15:13 | XMS_ITS | Encounter Summary ---
Author Organization [facility] Address [address] [place] [address] Care Team Providers Care Academic Advisement Director Name Role Phone Unavailable Primary Care Provider Unavailabl e Reason for Visit * Reason Onset Date Comments Surgical Questions 05/13/2024 Encounter Details Date Type Department Care Team (Latest Contact Info) Description 05/13/2024 Clinical Communication Department of Cardiovascular Medicine in [place], [place] [address] [place] [phone] Danyell Morris M.B.B.S., Ph.D. [address] [place] [phone] Surgical Questions Social History Tobacco Use Types Packs/Day Years Used Date Smoking Tobacco: Never Smokeless Tobacco: Never Nutrition Answer Date Recorded Nutrition: EVOO Fat Source 13 03/27 Nutrition: Servings of Fruits/Vegetables per Day Not on file 03/27/2020 Dental Answer Date Recorded Dental: Regular Dentist Unknown 11/02/19 21 Sex and Gender Information Value Date Recorded Sex Assigned at Male 07/11/2024 10:53 AM MANAGER ORACLE DATABASE Legal Sex Male 9:21 AM MANAGER ORACLE DATABASE Gender Identity Male 07/11/2024 10:53 AM MANAGER ORACLE DATABASE Sexual Orientation Straight 07/11/2024 10 :53 AM MANAGER ORACLE DATABASE documented as of this encounter Miscellaneous Notes * Telephone Encounter - Maria Victoria Sadler - 07/01/2024 10:18 AM CDT Patient listed for: TAVR: 08/03 INTERNAL REFERRING PROVIDER: Tanisha Freed M.D. TAVR MDs: Drs. Jones and Jabari * Telephone Encounter - Nilesh Go - 05/13/2024 2:05 PM CDT Who is your Primary Care Provider: Dr. Vargas What Clinic is your Primary Care Provider: [facility] What is their phone number: Is patient taking any blood thinners? no If so, which one? If on blood thinner-do they know their current weight? If on Coumadin/Warfarin has the patient used Lovenox (Enoxaparin), which is the medication that is given by a shot in the belly? If on Coumadin/Warfarin, who is the anticoagulation clinic? Do you have a contrast dye allergy? no If the answer is yes, they should route a communication to the Valve RN???s to work on premedicating for the upcoming TAVR CT. Has patient been to a dentist in the last 6 months? Scheduled for next week Any dental issues ? no Office Name and DDS: [facility] Dental Clearance faxed to local dental office? Yes ~Dental Office must state on the faxed form that the patient does NOT have an active infection or pain~ IF NO DENTIST: instruct patient to contact a local dental office to get cleaning for clearance prior to TAVR and to call back Demi Gastelum with dental information for clearance fax at [phone] If 2 out of these 3 questions are answered yes, please generate a social work consult with the orders ([id number]): Have you had any falls in the last year? no Do you live alone or act as the primary caregiver for another individual living in your home?no Do you utilize any outpatient services including home health care, home oxygen, or outpatient dialysis? no Do you reside in a [facility] or plan to be admitted to one after your procedure? no Please make sure the patient understands the difference between alf and assisted living.Assisted living is their own apartment and is ok. If they live in a alf, please ask which one. Please report to your procedure with a responsible adult or your procedure may be delayed or cancelled. Do you have an ICD (Implantable Cardiac Defibrillator)? No If yes-does [facility] device clinic manage this? -can be ANY [facility] ([place], [place], [place], [place], etc) If yes-nothing more to do If no-then patient will need an order placed for pacemaker nurse to come see the patient in the TAVR clinic appointment *order number is [id number], then PASS/DOS will need to schedule this appt during the TAVR clinic documented in this encounter Plan of Treatment Upcoming Encounters Date Type Department Care Team (Latest Contact Info) Description 09/20/2024 9:00 AM MANAGER ORACLE DATABASE Clinical Communication Virtual Review in [address] [phone] 09/21/2024 11:20 AM MANAGER ORACLE DATABASE Appointment Department of Laboratory Medicine and Pathology, [facility] in [address] [phone] Enrico Knight APRN, C.N.P., M.S.N. [address] [place] [phone] 09/21/2024 11:40 AM MANAGER ORACLE DATABASE Ancillary Procedure Department of Cardiovascular Medicine in [address] [phone] Enrico Knight APRN, C.N.P., M.S.N. [address] [place] [phone] 09/21/2024 12:15 PM MANAGER ORACLE DATABASE Appointment Department of Cardiovascular Diseases in [address] [phone] Enrico Knight APRN C.N.P., M.S.N. [address] [place] [phone] Discharge Disposition: Home or Self Care 09/22/2024 9:30 AM MANAGER ORACLE DATABASE Office Visit Department of Cardiovascular Medicine in [place], [place] 200 [place] [address] Edna Sandra APRN, C.NArnaldo., M.S.N. [address] [place] [address] Scheduled Procedures Name Priority Associated Diagnoses Date/Ti me ENDOSCOPY SLEEP STATE Obstructive Sleep Apnea Adult documented as of this encounter Visit Diagnoses Not on filedocumented in this encounter
--- OUTSIDE RECORDS SUMMARY | 2024-08-08 15:13 | XMS_ITS | Encounter Summary ---
Author Organization [facility] Address [address] [place] [phone] Care Team Providers Care Architectural Examiner Name Role Phone Unavailable Primary Care Provider Unavailabl e Reason for Visit * Appointment Request (Routine) - Closed Specialty Diagnoses / Procedures Referred By El becker Referred To Contact Cardiovascular Disease Tanisha Freed M.D. [address] [place] [phone] Phone: tel: fax: Referral ID Status Reason Start Date Expiration Date Visits Re quested Visits Authorized [id number] Closed 05/10/2024 05/10/2025 1 1 Encounter Details Date Type Department Care Team (Latest Contact Info) Description 07/13/2024 1:00 PM ACCOUNTS PAYABLE PROCESSOR Comprehensive Visit Department of Cardiovascular Medicine in [place], [place] [address] [place] [phone] Danyell Morris M.B.BDimpleSDimple, Ph.D. [address] [place] [phone] Stenosis Aortic Valve Acquired (Primary Dx); Obstructive Sleep Apnea Adult; Chronic Kidney Disease; Hypertension Essential Primary; Obesity Body Mass Index 30-39.9 Adult; Gastroesophageal Reflux Disease Without Esophagitis Social History Tobacco Use Types Packs/Day Years Used Date Smoking Tobacco: Never Smokeless Tobacco: Never [facility] Utilities Answer Date Recorded In the past [...] your living situation today? I have a [facility] place to live 07/11/2024 Sex and Gender Information Value Date Recorded Sex Assigned at Male 07/11/2024 10:53 AM ACCOUNTS PAYABLE PROCESSOR Legal Sex Male 9:21 AM ACCOUNTS PAYABLE PROCESSOR Gender Identity Male 07/11/2024 10:53 AM ACCOUNTS PAYABLE PROCESSOR Sexual Orientation Straight 07/11/2024 10 :53 AM ACCOUNTS PAYABLE PROCESSOR documented as of this encounter Consult Notes * Danyell Morris M.B.B.S., Ph.D. - 07/13/2024 1:00 PM CST Cardiovascular Consult Note REFERRAL SOURCE Tanisha Freed M.D. [address] [place] [phone] CHIEF COMPLAINT / REASON FOR VISIT Severe aortic stenosis HISTORY OF PRESENT ILLNESS Mr. Neal Gale presents unaccompanied to [facility] today for evaluation of aortic stenosis. Mr. Gale is a very pleasant 79 y.o. 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 Pertinent cardiac medications included lisinopril 20 mg daily and chlorthalidone 25 mg daily. He is also taking omeprazole and cholestyramine. Mr. Gale was recently seen at our Sleep Medicine unit for management of his known severe CONCHA that was initially diagnosed in 2010. However over the years, he had difficulty tolerating his CPAP, although was able to lose 9 kg of weight. Recent polysomnogram showed persistent moderate CONCHA with nocturnal hypoxemia. He reported fatigability and daytime somnolence, and also reported research center partner insomnia. He is currently seeing Dental Specialties, ENT and Sleep Medicine to discuss options for treatment of his CONCHA. Of note, during that evaluation, a loud murmur was noted on physical exam. This led to an echocardiogram which showed presence of severe calcific aortic stenosis. He has been referred to the [facility]ve Clinic for further evaluation of this and hence the reason of his clinic visit this afternoon. Mr. Gale is a somewhat challenging historian however he reported worsening fatigability, increasing stamina limitation and progressive dyspnea on exertion in the past 2-3 years after a COVID infection, with further worsening over the past year. He felt tired all the time. 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 He attributed this to some viral illness which fortunately is much improvedin the past 3 days; while the slight chest wall discomfort remained, his dyspnea and lightheadedness has mostly resolved. He reportedly can walk for 0.5 mile before having to stop due to leg fatigue and the need to catch his breath. He is able to walk up 2 flights of stairs during our visit today, stopping on the 2nd flights due to development of mild dyspnea and leg fatigue, but denied chest pain. No syncope, peripheral edema, PND or orthopnea. Of note he has been lost to follow up from nephrology service, last seen in 2019. TTE from 14 APR 2024 which I have personally reviewed showed Severe calcific aortic stenosis and mild regurgitation. Mean gradient 74 mmHg; CHUCKY 0.8 cm^2; peak aortic velocity 5.6 m/sec. LVOT 24 mm. Mildly enlarged LV size, EF 60%, no RWMA. Normal RV size and systolic function. Estimated RVSP 37 mmHg. Mild MAC. Trivial MR. Trivial RI. Mild TR Normal central venous pressure. Normal mid ascending aorta 39 mm. No pericardial effusion. MEDICATIONS Current Medications: chlorthalidone (Hygroton) 25 mg tablet, Take by mouth daily. cholestyramine (Questran) 4 gram powder, Take 1 packet by mouth. cholestyramine (Questran) 4 gram powder, Take by mouth 2 (two) times a day. Cholestyramine Light 4 gram powder, TAKE 4G BY MOUTH TWICE DAILY diphenoxylate-atropine (LomotiL) 2.5-0.025 mg per tablet, 1-2 tablets every 4-6 hours for diarrhea lisinopriL 20 mg tablet, Take 1 tablet by mouth daily. omeprazole (PriLOSEC) [address] capsule, Take by mouth every morning. omeprazole (PriLOSEC) [address] capsule, Take 1 capsule by mouth daily. pravastatin (PravachoL) 20 mg tablet, No current facility-administered medications for this visit. 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 Lives at home with his significant other (Jia); has 3 adult children (2 sons and 1 daughter) -1 of his son and his [id number] lives just across the road from his home. He smoked for about 6 months in his high school but none since. No regular alcohol intake. Independent with ADLs; still drives. FAMILY HISTORY No family history on file. REVIEW OF SYSTEMS: REVIEW OF SYSTEMS VITALS Height: 175.3 cm Weight: 98 kg BMI (Calculated): 31.9 kg/m?? BSA 2.14 Blood pressure 112/68; heart rate 67 beats per minute PHYSICAL EXAMINATION General: Alert, cooperative, no distress, appears as per stated age. Pain-free. Able to climb up the examination table independently. Eyes: No scleral icterus or xanthelasma Vessels: JVP not elevated and can be seen at the base of the neck. Delayed carotid upstroke but with normal volumes. Chest wall: No tenderness or deformity Heart: Heart sounds mostly regular with occasional ectopic. Normal S1, A2 is absent. 3/6 late-peaking ejection systolic murmur throughout the entire precordium loudest at the right upper sternal border with radiation to the carotid. I do not appreciate diastolic component. No S3, S4, or right ventri cular heave. Lungs: Clear bilaterally to auscultation Extremities: Trace peripheral edema DIAGNOSTIC REVIEW I have reviewed the patient's current laboratory, imaging, and other diagnostic studies. Labs: Hemoglobin 11.8, white cell count 6.4, platelet 231. INR 1.0. Sodium 139, potassium 3.9, creatinine 1.94, EGFR 35, albumin 4.1, elevated NT proBNP 1121. Total cholesterol 125, HDL 37, LDL 60, triglycerides 162. Normal TSH 2.7. CXR: Mild cardiomegaly. Pulmonary vascular congestion. Mild pulmonary edema. ECG: Sinus bradycardia, 59 BPM, first-degree AV block, PAC, bifascicular block ASSESSMENT / PLAN #1 Critical , MG 74, PAV 5.6 m/s, CHUCKY 0.8 cm^2, LVOT 24. Mild AR, symptomatic #2 Preserved LVEF 60% #3 Bifascicular block and first-degree AV block #4 Hypertension #5 Moderate obstructive sleep apnea with hypoxemia, intolerant to CPAP #6 Obesity, BMI 31.9 #7 CKD stage 3B, EGFR 32-35 I believe Mr. Gale has symptomatic critical aortic stenosis, and as such he met a class 1 indication for an aortic valve replacement. I discussed with the patient the natural history of aortic stenosis and treatment options including continued surveillance, surgical versus transcatheter valve replacement and their potential risks and benefits. Given his symptomatic state, I recommend pursuing AVR; He is interested with the least invasive option (TAVR), which I support. I have informed him that he is at a higher risk of developing complete heart block following the TAVR procedure given his baseline conduction disease and that PPM may be needed. He understood the risk and is keen to proceed. PLAN: He is to complete the remainder of his TAVR workup. TAVR CT result is pending. I look forward to see the outcome of his assessment by our TAVR surgeon and hand marker regarding his TAVR candidacy Cancel the prescheduled stress test given symptomatic severe He received a large contrast load today; I have asked him to increase his fluid intake in the next 48 hours and to monitor his urine output. I have also recommend that he reached out to his sports physiologist to organize renal follow-up given his underlying CKD He is to continue current cardiac therapy in the meantime He is to obtain dental clearance prior to the TAVR procedure Although he is to remain active, I have asked him to slow down a bit and to avoid strenuous farmingactivities in the next 2-3 weeks while waiting for the TAVR procedure. I have asked him to stop/minimize any NSAID use given his CKD Above discussed with Mr. Neal Marlo Gale who expressed agreement and understanding. It was a great pleasure seeing him at the [facility] Clinic today. Karen Esposito., Ph.D. 07/13/2024 BILLING: Total time spent with patient was 60 minutes and greater than 50% of that time was spent in counselling and coordination of care. UNTS PAYABLE PROCESSOR documented in this encounter Plan of Treatment Upcoming Encounters Date Type Department Care Team (Latest Contact Info) Description 09/20/2024 9:00 AM ACCOUNTS PAYABLE PROCESSOR Clinical Communication Virtual Review in [address] [phone] 09/21/2024 11:20 AM ACCOUNTS PAYABLE PROCESSOR Appointment Department of Laboratory Medicine and Pathology, [facility], in [address] [phone] Enrico Knight APRN, C.N.P., M.S.N. [address] [place] [phone] 09/21/2024 11:40 AM ACCOUNTS PAYABLE PROCESSOR Ancillary Procedure Department of Cardiovascular Medicine in [place], [place] [address] [place] [phone] Enrico Knight APRN, C.NArnaldo., M.S.N. [address] [place] [phone] 09/21/2024 12:15 PM ACCOUNTS PAYABLE PROCESSOR Appointment Department of Cardiovascular Diseases in [place], [place] [address] [place] [phone] Enrico Knight APRN, C.NArnaldo., M.S.N. [address] [place] [phone] Discharge Disposition: Home or Self Care 09/22/2024 9:30 AM ACCOUNTS PAYABLE PROCESSOR Office Visit Department of Cardiovascular Medicine in [place], [place] [address] [place] [phone] Edna Sandra APRN, C.NArnaldo., M.S.N. [address] [place] [phone] Scheduled Procedures Name Priority Associated Diagnoses Date/Ti me ENDOSCOPY SLEEP STATE Obstructive Sleep Apnea Adult documented as of this encounter Procedures Procedure Name Priority Date/Time Associated Diagnosis Comments LIPID PANEL, S Routine 07/13/2024 10:46 AM ACCOUNTS PAYABLE PROCESSOR THYROID FUNCTION CASCADE, S Routine 07/13/2024 10:46 AM ACCOUNTS PAYABLE PROCESSOR Stenosis Aortic Valve Acquired Obstructive Sleep Apnea Adult Chronic Kidney Disease Hypertension Essential Primary Obesity Body Mass Index 30-39.9 Adult HEMOGLOBIN A1C, B Routine 07/13/2024 10: 46 AM ACCOUNTS PAYABLE PROCESSOR Stenosis Aortic Valve Acquired Obstructive Sleep Apnea Adult Chronic Kidney Disease Hypertension Essential Primary Obesity Body Mass Index 30-39.9 Adult documented in this encounter Results * (ABNORMAL) Lipid Panel (07/13/2024 10:46 AM ACCOUNTS PAYABLE PROCESSOR) Triglycerides 162(H) mg/dL 07/13/2024 2:15 PM ACCOUNTS PAYABLE PROCESSOR DTL Comment: ----REFERENCE VALUE---- Normal: <150 mg/dL Borderline High: 150-199 mg/dL High: 200-499 mg/dL Very High: > or =500 mg/dL Cholesterol, Total 125 mg/dL 2023 2:15 PM ACCOUNTS PAYABLE PROCESSOR DTL Comment: ----REFERENCE VALUE---- Desirable: < 200 mg/dL Borderline High: 200 - 239 mg/dL High: > or = 240 mg/dL Cholesterol, LDL, Calculated 60 mg/dL 07/13/2024 2:15 PM ACCOUNTS PAYABLE PROCESSOR DTL Comment: ----REFERENCE VALUE---- Desirable: <100 mg/dL Above Desirable: 100-129 mg/dL Borderline High: 130-159 mg/dL High: 160-189 mg/dL Very High: >=190 mg/dL ----ADDITIONAL INFORMATION---- LDL cholesterol calculated using the Lim/NIH equation. Cholesterol, HDL, S 37(L) >=40 mg/dL 07/13/2024 2:15 PM ACCOUNTS PAYABLE PROCESSOR DTL Cholesterol, Non-HDL, Calculated 88 mg/dL 07/13/2024 2:15 PM ACCOUNTS PAYABLE PROCESSOR DTL Comment: ----REFERENCE VALUE---- Desirable: <130 mg/dL Above Desirable: 130-159 mg/dL Borderline High: 160-189 mg/dL High: 190-219 mg/dL Very High: > or =220 mg/dL Fasting (8 HR or more) Unknown 07/13/2024 1:22 PM ACCOUNTS PAYABLE PROCESSOR DTL Blood 07/13/2024 10:4 6 AM ACCOUNTS PAYABLE PROCESSOR 07/13/2024 1:22 PM ACCOUNTS PAYABLE PROCESSOR us Danyell BarSDimple, Ph.D. LAB BLOOD ADD-O N Final Result [facility] [address] [place] [address], [place] DTL [facility] [address] [place] [address] * Hemoglobin A1c (07/13/2024 10:46 AM ACCOUNTS PAYABLE PROCESSOR) Hemoglobin A1c, B 5.5 4.0 - 5.6 % 07/13/2024 4:30 PM ACCOUNTS PAYABLE PROCESSOR DTL Blood (Blood, Venous) 07/13/2024 10:46 AM ACCOUNTS PAYABLE PROCESSOR 07/13/2024 1:12 PM ACCOUNTS PAYABLE PROCESSOR Danyell Walsh, Ph.D. LAB BLOOD ADD-O N Final Result Performing Organization Address [facility] Co de Phone Number [facility] [address] [place] [address], [facility] 200 [place] [address] * Thyroid Function Arminto (07/13/2024 10:46 AM ACCOUNTS PAYABLE PROCESSOR) [facility] TSH, Sensitive 2.7 0.3 - 4.2 mIU/L 07/13/2024 2:15 PM ACCOUNTS PAYABLE PROCESSOR DTL Blood (Blood, Venous) 07/13/2024 10:46 AM ACCOUNTS PAYABLE PROCESSOR 07/13/2024 1:22 PM ACCOUNTS PAYABLE PROCESSOR Danyell GuilloryBDimpleSDimple, Ph.D. LAB BLOOD ADD-O N Final Result Performing Organization Address [facility] Co de Phone Number [facility] [address] [place] [address], [facility] [address] [place] [address] documented in this encounter Visit Diagnoses Diagnosis Stenosis Aortic Valve Acquired- Primary Obstructive Sleep Apnea Adult Chronic Kidney Disease Hypertension Essential Primary Obesity Body Mass Index 30-39.9 Adult Gastroesophageal Reflux Disease Without Esophagitis documented in this encounter
--- OUTSIDE RECORDS SUMMARY | 2024-08-08 15:13 | XMS_ITS | Encounter Summary ---
Author Organization [facility] Address [address] [place] [phone] Care Team Providers Care Inspector Eyeglass Frames Name Role Phone Unavailable Primary Care Provider Unavailabl e Reason for Visit * Reason Comments Patient Education Encounter Details Date Type Department Care Team ([facility] st Contact Info) Description 07/15/2024 11:00 AM TAR HEAT EXCHANGER CLEANER Education Department of Patient Education in [place], [place] [address] [place] [phone] Danyell Morris M.B.B.S., Ph.D. [address] [place] [phone] Stenosis Aortic Valve Acquired Social History Tobacco Use Types Packs/Day Years Used Date Smoking Tobacco: Never Smokeless Tobacco: Never [facility] Utilities Answer Date Recorded In the past 12 months has [facility] [employer], gas, oil, or water [employer] ([employer]) threatened to shut off services in your [...] your living situation today? I have a [facility] place to live 07/11/2024 Sex and Gender Information Value Date Recorded Sex Assigned at Male 07/11/2024 10:53 AM TAR HEAT EXCHANGER CLEANER Legal Sex Male 9:21 AM TAR HEAT EXCHANGER CLEANER Gender Identity Male 07/11/2024 10:53 AM TAR HEAT EXCHANGER CLEANER Sexual Orientation Straight 07/11/2024 10 :53 AM TAR HEAT EXCHANGER CLEANER documented as of this encounter Plan of Treatment Upcoming Encounters Date Type Department Care Team (Latest Contact Info) Description 09/20/2024 9:00 AM TAR HEAT EXCHANGER CLEANER Clinical Communication Virtual Review in [place], [place] 200 [place] [phone] 09/21/2024 11:20 AM TAR HEAT EXCHANGER CLEANER Appointment Department of Laboratory Medicine and Pathology, [facility], in [place], [place] [address] [place] [phone] Enrico Knight APRN, C.N.P., M.S.N. [address] [place] [phone] 09/21/2024 11:40 AM TAR HEAT EXCHANGER CLEANER Ancillary Procedure Department of Cardiovascular Medicine in [address] [phone] Enrico Knight APRN, C.N.P., M.S.N. [address] [place] [phone] 09/21/2024 12:15 PM TAR HEAT EXCHANGER CLEANER Appointment Department of Cardiovascular Diseases in [place], [place] [address] [place] [phone] Enrico Knight APRN, C.N.P., M.S.N. [address] [place] [phone] Discharge Disposition: Home or Self Care 09/22/2024 9:30 AM TAR HEAT EXCHANGER CLEANER Office Visit Department of Cardiovascular Medicine in [place], [place] [address] [place] [phone] Edna Sandra APRN, C.N.P., M.S.N. [address] [place] [phone] Scheduled Procedures Name Priority Associated Diagnoses Date/Ti me ENDOSCOPY SLEEP STATE Obstructive Sleep Apnea Adult documented as of this encounter Visit Diagnoses Diagnosis Stenosis Aortic Valve Acquired documented in this encounter
== END 2024-08-08 15:09 | disposition home or self-care (01) ==
LOC: NFLDREF 15:09
PROVIDERS: PCP Family Medicine; Visit Provider Family Medicine
DX: N18.30 Chronic kidney disease, stage 3 unspecified (principal); Z95.2 Presence of prosthetic heart valve
CPT/HCPCS: 80048

== ENCOUNTER 2025-01-10 09:45 | Outpatient (CLI) | payer MEDICARE, BC, SELFPAY | END 2025-01-10 09:46 | disposition home or self-care (01) | LOC: NFLDREF 01-18 00:15 | PROVIDERS: PCP Family Medicine; Referring Provider Family Medicine; Visit Provider Family Medicine | DX: R73.03 Prediabetes (principal); E78.1 Pure hyperglyceridemia | CPT/HCPCS: 80053; 80061 ==

== ENCOUNTER 2025-01-16 10:50 | Outpatient (CLI) | payer MEDICARE, BC, SELFPAY | END 2025-01-16 10:51 | disposition home or self-care (01) | LOC: NFLDREF 10:50 | PROVIDERS: PCP Family Medicine; Visit Provider Family Medicine | DX: Z00.01 Encounter for general adult medical examination with abnormal findings (principal); R53.83 Other fatigue | CPT/HCPCS: 84443 ==